=== PATIENT | female | born 1955 | race Caucasian/White ===

== ENCOUNTER 2023-08-29 12:00 | Emergency (ER) | payer MEDICARE, OTHER, SELFPAY ==
[2023-08-29 12:07] VITALS: BP 141/98
--- NOTE | 2023-08-29 12:37 | ED.GENMED ---
History of Present Illness
General
Chief Complaint: Female Pot Filler/Gu symptoms
Time Seen by Provider: 08/29/23 12:25
Travel History
Have you had any contact with someone who has COVID-19?: No
Do you have any symptoms of coronavirus? Fever > 100 degrees, chills, cough, shortness of breath, sore throat, loss of taste or smell, muscle aches, or headache?: No
History of Present Illness
History of Present Illness:
68-year-old female presents to the emergency department for evaluation of gradually worsening lower abdominal pain ongoing for the past 3 weeks. She reports that she saw her primary physician last week where she was told there was blood in the
urine but is uncertain if she was supposed to obtain any other lab work, did get up ordered for an outpatient ultrasound that she has not yet been able to schedule. Pain increased over the past 2 days prompting ER evaluation. Denies any vaginal
bleeding, chest pain, nausea, vomiting, night sweats, or weight changes
Past History
Past History
ED Past Medical History: None
ED Past Surgical History: None
Social History
Tobacco: Non-smoker
Review of Systems
Review of Systems
Allergies reviewed?: Yes
All Other Systems: ROS reviewed and negative except as documented in HPI and ROS
Phy Exam
Physical Exam
Physical Exam:
GEN: Well appearing, NAD, WDWN
Eyes: PERRLA, EOMs intact, no scleral icterus
HENT: NCAT, oral mucosa moist
Lungs: CTAB, no wheezes, rales, rhonchi, normal chest wall excursion
Cardiac: RRR, no M/R/G, no peripheral edema. Radial pulses 2+ bilat
Abdomen: Soft, moderate tenderness to the suprapubic space, no rigidity or peritoneal signs
Neuro: AO x 3
MSK: No gross deformity or ecchymosis.
Skin: No rashes, petechiae. Normal color, no pallor or jaundice.
Psych: Calm, cooperative, proper hygiene
Course
Orders/Labs/Results
Orders:
Orders
08/29/23 12:36
0.9% Sodium Chloride 1000 ml [Nss] 1,000 ml IV BOLUS
HYDROmorphone [Dilaudid] 0.25 mg IV NOW STA
08/29/23 12:51
Complete Blood Count/With Diff Urgent
Comprehensive Metabolic Panel Urgent
Lactic Acid Q4H
Comment: CANCEL 2nd LACTIC ACID IF 1st LACTIC ACID IS LESS THAN 2
Prothrombin Time Urgent
Urinalysis Reflex To Culture Urgent
Date Specimen was Collected: 08/29/23
Time Specimen was Collected: 12:48
Urine Microscopic Reflex Cult Urgent
Blood Culture Q30M
[facility] Source: Blood/Venous
Specimen Description:
08/29/23 12:54
Blood Culture Q30M
[facility] Source: Blood/Venous
Specimen Description:
08/29/23 13:35
CT Abd/Pel (IV only)-DH only Urgent
Comment:
Reason For Exam: suprapubic pain, hematuria
Abnormal Lab Results
08/29/23
12:51
RBC 3.77 L 10^6/uL
(4.20-5.40)
Hgb 11.2 L g/dL
(12.0-16.0)
Hct 33.5 L %
(37.0-47.0)
Absolute Monos (auto) 0.7 H 10^3/uL
(0.1-0.6)
Ur Occult Blood Reflex 3+ A
(Negative)
Urine RBC 7-10 A /HPF
(0-2)
08/29/23 12:51
08/29/23 12:51
Vital Signs
Initial and Last Documented VS:
Initial Vital Signs
Temp Pulse Resp BP Pulse Ox
98.9 F 118 18 141/98 97
08/29/23 12:07 08/29/23 12:07 08/29/23 12:07 08/29/23 12:07 08/29/23 12:07
Last Documented Vital Signs
Temp Pulse Resp BP Pulse Ox
98.9 F 77 18 115/73 99
08/29/23 12:07 08/29/23 16:30 08/29/23 16:30 08/29/23 16:30 08/29/23 16:30
MDM/Problems Addressed
MDM/Problems Addressed:
Unfortunately imaging reveals a heterogenous mass in the pelvis that is highly concerning for gynecologic malignancy. Blood in the urine is likely due to involvement of the adjacent right ureter. Patient is clinically stable and has normal labs,
no indication for admission. I did discuss the case with outpatient oncology who will help to facilitate follow-up with [facility] for further management
*Critical Care Note
Total Time (30-74mins, 75-104mins- exclusive of procedures): Not Applicable
ED Attending Note
-
Portions of this chart may have been created with voice recognition software.� Occasional wrong word or��sound alike� substitutions may have occurred due to the inherent limitations of voice recognition software.
Discharge Plan
Departure
Patient Disposition: Home (Routine Discharge)
Date of Disposition: 08/29/23
Time of Disposition: 16:03
Patient with high blood pressure during this ER visit?: No
Discharge Problem:
Pelvic mass
Prescriptions:
No Action
hydrocodone-acetaminophen [Santa] 1 EACH tablet
1 ea PO Q4HPRN PRN (Reason: severe pain) Qty: 10 0RF
Referrals:
Ronnie Solorzano DO [Active] -
Alon Serrato MD [Active] -
Activity Restrictions/Additional Instructions:
Your CT scan shows a large mass in the pelvis that is highly concerning for cancer. You will need to be followed up with both gynecology as well as hematology, both of these follow-up providers are listed in your paperwork and I did communicate the
urgent nature of your follow-up with both of the on-call specialists. If your pain becomes unbearable or you begin to vomit do not hesitate to return to the emergency department
I have prescribed you pain medications to use, please use these only as needed for severe pain. You may take Tylenol/acetaminophen as well
Interventions
Interventions:
*Risk Screen - Suicide Last Done: 08/29/23 12:48
*General Assessment Last Done: 08/29/23 12:48
*Neglect/Abuse Screening Last Done: 08/29/23 12:48
ED- Fall Risk Assessment Last Done: 08/29/23 16:30
*ED COVID-19 Vaccine History Last Done: 08/29/23 12:48
*Nursing Disposition Last Done: 08/29/23 16:30
HH-Ffbymz-Yquruomxzv Assessment Last Done: 08/29/23 12:48
ED-Female Genitourinary Assessment Last Done: 08/29/23 12:48
Discharge Date and Time
Discharge Date/Time: 08/29/23 16:49
[2023-08-29 12:50] VITALS: BP 135/78
[2023-08-29] MEDS: DILAUDID 0.25 MG IV (12:52)
[2023-08-29] MEDS: NSS 1000 IV (12:53)
[2023-08-29 12:54] VITALS: BMI 33.3
[2023-08-29 13:00] VITALS: BP 127/73
[2023-08-29 13:02] LABS: % Basophils 0.6 % (0-2); % Eosinophils 0.8 % (0-6); % Immature Granulocytes 0.5 % (0-0.5); % Lymphocytes 21.5 % (20.5-51.1); % Monocytes 8.1 % (1.7-9.3); % Neutrophils 68.5 % (42.2-75.2); Absolute Basophils 0.1 10^3/uL (0-0.2); Absolute Eosinophils 0.1 10^3/uL (0-0.7); Absolute Lymphocytes 1.9 10^3/uL (1.2-3.4); Absolute Monocytes 0.7 10^3/uL (0.1-0.6); Absolute Neutrophils 5.9 10^3/uL (1.4-6.5); Hematocrit 33.5 % (37.0-47.0); Hemoglobin 11.2 g/dL (12.0-16.0); Mean Corp Hgb Conc. 33.4 g/dL (33.0-37.0); Mean Corpuscular Hgb 29.7 pg (27.0-31.0); Mean Corpuscular Volume 88.9 fL (81.0-99.0); Mean Platelet Volume 9.4 fL (7.4-10.4); Nucleated Red Blood Cells % 0 %; Platelet Count 323 10^3/uL (130-400); Red Blood Cell Count 3.77 10^6/uL (4.20-5.40); Red Cell Dist. Width 13.2 % (11.5-14.5); White Blood Cell Count 8.6 10^3/uL (4.8-10.8)
[2023-08-29 13:16] LABS: INR 1.08; Lactic Acid 0.7 mmol/L (0.7-2.0); PT 14.1 Sec (11.4-14.6)
[2023-08-29 13:23] LABS: Urine Albumin Negative (Neg - Trace); Urine Bilirubin Negative (Negative); Urine Character Clear (Clear); Urine Color Yellow; Urine Glucose Negative (Negative); Urine Ketone Negative (Negative); Urine Leukocyte Negative (Negative); Urine Nitrite Negative (Negative); Urine Occult Blood 3+ (Negative); Urine Urobilinogen Negative (Neg - 1+)
[2023-08-29 13:48] LABS: ALT (SGPT) 27 U/L (0-35); AST (SGOT) 31 U/L (14-36); Alkaline Phosphatase 119 U/L (38-126); Blood Urea Nitrogen 16 mg/dl (7-17); Carbon Dioxide 27 mmol/L (22-30); Chloride 105 mmol/L (98-107); Estimated Creatinine Clearance 73 ml/min; Glucose 96 mg/dl (70-99); Sodium 137 mmol/L (135-145); Total Bilirubin 0.5 mg/dl (0.2-1.3); Total Protein 6.5 g/dl (6.3-8.2); eGFR > 60.00
[2023-08-29 13:51] LABS: Urine White Cell None Seen /HPF (0-5)
[2023-08-29 14:00] VITALS: BP 116/32
[2023-08-29 16:30] VITALS: BP 115/73
== END 2023-08-29 16:49 | disposition home or self-care (01) ==
LOC: EMR 12:00
PROVIDERS: Physician Assistant; EMERGENCY PHYSICIAN Student in an Organized Health Care Education/Training Program
DX: R19.00 Intra-abdominal and pelvic swelling, mass and lump, unspecified site (principal)
CPT/HCPCS: 99284; 96374; 96361; 74177; 80053; 81003; 81015; 83605; 85025; 85610; 87040; Q9967

== ENCOUNTER → 2023-09-06 12:20 | Outpatient (REF) | payer MEDICARE, OTHER, SELFPAY ==
[2023-09-06 12:42] VITALS: BP 156/85; BP_SYST 118
== END ==
LOC: RADI 12:20
PROVIDERS: ATTENDING PHYSICIAN Internal Medicine Hematology & Oncology
DX: J90 Pleural effusion, not elsewhere classified (principal); Z53.8 Procedure and treatment not carried out for other reasons; C56.9 Malignant neoplasm of unspecified ovary
CPT/HCPCS: 71260; 76604; Q9967

== ENCOUNTER → 2023-09-12 07:35 | Outpatient (REF) | payer MEDICARE, OTHER, SELFPAY ==
[2023-09-12 08:18] VITALS: BP 136/80; BP_SYST 99
[2023-09-12] MEDS: ANCEF 10 IV (08:33)
[2023-09-12 10:21] VITALS: BP 120/73
== END ==
LOC: RADI 07:35
PROVIDERS: ATTENDING PHYSICIAN Internal Medicine Hematology & Oncology
DX: C56.9 Malignant neoplasm of unspecified ovary (principal)
CPT/HCPCS: 36561; 76937; 77001; 99152; 99153; C1788

== ENCOUNTER → 2023-09-16 09:29 | Outpatient (REF) | payer MEDICARE, OTHER, SELFPAY ==
[2023-09-16 09:43] VITALS: BP 133/77; BP_SYST 111
[2023-09-16 11:49] VITALS: BP 114/70; BP_SYST 99
[2023-09-16 11:50] VITALS: BP 104/68
[2023-09-16 12:00] VITALS: BP 100/63; BP_SYST 98
[2023-09-16 12:14] VITALS: BP 91/65; BP_SYST 95
[2023-09-16 12:32] VITALS: BP 94/57
== END ==
LOC: RADI 09:29
PROVIDERS: ATTENDING PHYSICIAN Internal Medicine Hematology & Oncology; REFERRING PHYSICIAN Obstetrics & Gynecology Gynecologic Oncology
DX: C57.7 Malignant neoplasm of other specified female genital organs (principal)
CPT/HCPCS: 88305; 20206; 77012; 88333; 88341; 88342; 88360; 99152

== ENCOUNTER → 2023-09-17 11:31 | Outpatient (REF) | payer MEDICARE, OTHER, SELFPAY ==
[2023-09-17 12:02] LABS: % Basophils 0.5 % (0-2); % Eosinophils 1.2 % (0-6); % Immature Granulocytes 0.3 % (0-0.5); % Lymphocytes 23.5 % (20.5-51.1); % Monocytes 7.9 % (1.7-9.3); % Neutrophils 66.6 % (42.2-75.2); Absolute Basophils 0.1 10^3/uL (0-0.2); Absolute Eosinophils 0.1 10^3/uL (0-0.7); Absolute Lymphocytes 2.3 10^3/uL (1.2-3.4); Absolute Monocytes 0.8 10^3/uL (0.1-0.6); Absolute Neutrophils 6.5 10^3/uL (1.4-6.5); Hematocrit 34.3 % (37.0-47.0); Mean Corp Hgb Conc. 32.1 g/dL (33.0-37.0); Mean Corpuscular Hgb 28.6 pg (27.0-31.0); Mean Corpuscular Volume 89.1 fL (81.0-99.0); Mean Platelet Volume 9.7 fL (7.4-10.4); Nucleated Red Blood Cells % 0 %; Platelet Count 348 10^3/uL (130-400); Red Blood Cell Count 3.85 10^6/uL (4.20-5.40); Red Cell Dist. Width 13.1 % (11.5-14.5); White Blood Cell Count 9.7 10^3/uL (4.8-10.8)
[2023-09-17 12:30] LABS: ALT (SGPT) 34 U/L (0-35); AST (SGOT) 45 U/L (14-36); Albumin 4.2 g/dl (3.5-5.0); Alkaline Phosphatase 107 U/L (38-126); Blood Urea Nitrogen 17 mg/dl (7-17); Calcium 9.5 mg/dl (8.4-10.2); Carbon Dioxide 28 mmol/L (22-30); Chloride 104 mmol/L (98-107); Glucose 98 mg/dl (70-99); Potassium 3.9 mmol/L (3.5-5.1); Sodium 139 mmol/L (135-145); Total Bilirubin 0.5 mg/dl (0.2-1.3); Total Protein 6.9 g/dl (6.3-8.2); eGFR > 60.00
== END ==
LOC: REG 11:31
PROVIDERS: ATTENDING PHYSICIAN Internal Medicine Hematology & Oncology; FAMILY PHYSICIAN Internal Medicine
DX: C56.9 Malignant neoplasm of unspecified ovary (principal); R19.04 Left lower quadrant abdominal swelling, mass and lump; J91.0 Malignant pleural effusion; C78.7 Secondary malignant neoplasm of liver and intrahepatic bile duct
CPT/HCPCS: 36415; 80053; 85025

== ENCOUNTER → 2023-10-07 10:21 | Outpatient (REF) | payer MEDICARE, OTHER, SELFPAY ==
[2023-10-07 11:31] LABS: % Basophils 0.3 % (0-2); % Eosinophils 0.3 % (0-6); % Immature Granulocytes 0.3 % (0-0.5); % Lymphocytes 16.4 % (20.5-51.1); % Monocytes 6.5 % (1.7-9.3); % Neutrophils 76.2 % (42.2-75.2); Absolute Monocytes 0.8 10^3/uL (0.1-0.6); Hemoglobin 10.4 g/dL (12.0-16.0); Mean Corp Hgb Conc. 32.5 g/dL (33.0-37.0); Mean Corpuscular Volume 89.1 fL (81.0-99.0); Mean Platelet Volume 9.4 fL (7.4-10.4); Nucleated Red Blood Cells % 0 %; Platelet Count 273 10^3/uL (130-400); Red Blood Cell Count 3.59 10^6/uL (4.20-5.40); Red Cell Dist. Width 14.9 % (11.5-14.5); White Blood Cell Count 11.9 10^3/uL (4.8-10.8)
[2023-10-07 13:35] LABS: ALT (SGPT) 32 U/L (0-35); AST (SGOT) 30 U/L (14-36); Albumin 4.3 g/dl (3.5-5.0); Alkaline Phosphatase 120 U/L (38-126); Blood Urea Nitrogen 19 mg/dl (7-17); Calcium 8.9 mg/dl (8.4-10.2); Carbon Dioxide 24 mmol/L (22-30); Chloride 104 mmol/L (98-107); Glucose 90 mg/dl (70-99); Potassium 4.2 mmol/L (3.5-5.1); Sodium 137 mmol/L (135-145); Total Bilirubin 0.4 mg/dl (0.2-1.3); Total Protein 6.8 g/dl (6.3-8.2); eGFR > 60.00
== END ==
LOC: REG 10:21
PROVIDERS: ATTENDING PHYSICIAN Internal Medicine Hematology & Oncology; FAMILY PHYSICIAN Internal Medicine
DX: C56.9 Malignant neoplasm of unspecified ovary (principal); R19.04 Left lower quadrant abdominal swelling, mass and lump; J91.0 Malignant pleural effusion; C78.7 Secondary malignant neoplasm of liver and intrahepatic bile duct
CPT/HCPCS: 36415; 80053; 85025

== ENCOUNTER → 2023-10-28 11:22 | Outpatient (REF) | payer MEDICARE, OTHER, SELFPAY ==
[2023-10-28 11:56] LABS: % Basophils 0.6 % (0-2); % Eosinophils 0.4 % (0-6); % Immature Granulocytes 0.4 % (0-0.5); % Lymphocytes 24.4 % (20.5-51.1); % Monocytes 8.1 % (1.7-9.3); % Neutrophils 66.1 % (42.2-75.2); ALT (SGPT) 29 U/L (0-35); AST (SGOT) 28 U/L (14-36); Absolute Basophils 0.1 10^3/uL (0-0.2); Absolute Lymphocytes 2.2 10^3/uL (1.2-3.4); Absolute Monocytes 0.7 10^3/uL (0.1-0.6); Albumin 4.5 g/dl (3.5-5.0); Alkaline Phosphatase 127 U/L (38-126); Blood Urea Nitrogen 16 mg/dl (7-17); Calcium 9.9 mg/dl (8.4-10.2); Carbon Dioxide 25 mmol/L (22-30); Chloride 103 mmol/L (98-107); Glucose 96 mg/dl (70-99); Hematocrit 31.6 % (37.0-47.0); Hemoglobin 10.3 g/dL (12.0-16.0); Mean Corp Hgb Conc. 32.6 g/dL (33.0-37.0); Mean Corpuscular Hgb 30.5 pg (27.0-31.0); Mean Corpuscular Volume 93.5 fL (81.0-99.0); Mean Platelet Volume 9.7 fL (7.4-10.4); Nucleated Red Blood Cells % 0 %; Platelet Count 168 10^3/uL (130-400); Red Blood Cell Count 3.38 10^6/uL (4.20-5.40); Red Cell Dist. Width 18.6 % (11.5-14.5); Sodium 140 mmol/L (135-145); Total Bilirubin 0.4 mg/dl (0.2-1.3); Total Protein 6.8 g/dl (6.3-8.2); eGFR > 60.00
[2023-10-28 11:57] LABS: Potassium 4.1 mmol/L (3.5-5.1)
== END ==
LOC: OIDL 11:22
PROVIDERS: ATTENDING PHYSICIAN Internal Medicine Hematology & Oncology
DX: C56.9 Malignant neoplasm of unspecified ovary (principal); R19.04 Left lower quadrant abdominal swelling, mass and lump; J91.0 Malignant pleural effusion
CPT/HCPCS: 80053; 85025

== ENCOUNTER → 2023-11-11 13:02 | Outpatient (REF) | payer MEDICARE, OTHER, SELFPAY | LOC: RAD 13:02 | PROVIDERS: ATTENDING PHYSICIAN Obstetrics & Gynecology Gynecologic Oncology | DX: C56.9 Malignant neoplasm of unspecified ovary (principal); R19.04 Left lower quadrant abdominal swelling, mass and lump; J91.0 Malignant pleural effusion; C78.7 Secondary malignant neoplasm of liver and intrahepatic bile duct | CPT/HCPCS: 71260; 74177; Q9967 ==

== ENCOUNTER → 2023-11-20 14:09 | Outpatient (REF) | payer MEDICARE, OTHER, SELFPAY ==
[2023-11-20 15:08] LABS: ALT (SGPT) 29 U/L (0-35); AST (SGOT) 31 U/L (14-36); Albumin 4.3 g/dl (3.5-5.0); Alkaline Phosphatase 106 U/L (38-126); Blood Urea Nitrogen 18 mg/dl (7-17); Calcium 9.4 mg/dl (8.4-10.2); Carbon Dioxide 25 mmol/L (22-30); Chloride 105 mmol/L (98-107); Glucose 82 mg/dl (70-99); Potassium 4.1 mmol/L (3.5-5.1); Sodium 137 mmol/L (135-145); Total Bilirubin 0.4 mg/dl (0.2-1.3); Total Protein 6.5 g/dl (6.3-8.2); eGFR > 60.00
[2023-11-20 15:24] LABS: % Basophils 0.3 % (0-2); % Eosinophils 0.5 % (0-6); % Immature Granulocytes 0.3 % (0-0.5); % Monocytes 9.4 % (1.7-9.3); % Neutrophils 64.5 % (42.2-75.2); Absolute Eosinophils 0.1 10^3/uL (0-0.7); Absolute Lymphocytes 2.8 10^3/uL (1.2-3.4); Absolute Neutrophils 7.2 10^3/uL (1.4-6.5); Hematocrit 29.4 % (37.0-47.0); Hemoglobin 9.9 g/dL (12.0-16.0); Mean Corp Hgb Conc. 33.7 g/dL (33.0-37.0); Mean Corpuscular Hgb 32.5 pg (27.0-31.0); Mean Corpuscular Volume 96.4 fL (81.0-99.0); Mean Platelet Volume 9.7 fL (7.4-10.4); Nucleated Red Blood Cells % 0 %; Platelet Count 201 10^3/uL (130-400); Red Blood Cell Count 3.05 10^6/uL (4.20-5.40); Red Cell Dist. Width 21.2 % (11.5-14.5); White Blood Cell Count 11.1 10^3/uL (4.8-10.8)
[2023-11-21 18:36] LABS: CA 125 20.4 U/mL (0-35)
== END ==
LOC: REG 14:09
PROVIDERS: ATTENDING PHYSICIAN Obstetrics & Gynecology Gynecologic Oncology; FAMILY PHYSICIAN Internal Medicine
DX: C56.9 Malignant neoplasm of unspecified ovary (principal); R19.04 Left lower quadrant abdominal swelling, mass and lump; J91.0 Malignant pleural effusion; C78.7 Secondary malignant neoplasm of liver and intrahepatic bile duct
CPT/HCPCS: 36415; 80053; 85025; 86304

== ENCOUNTER 2023-11-26 06:43 | Inpatient (IN) | payer MEDICARE, OTHER, SELFPAY ==
[2023-11-22 12:40] VITALS: BMI 31.5
[2023-11-26] VITALS (18 sets, daily range): BP systolic 68–147; BP diastolic 38–90; BMI 31.5
[2023-11-26] MEDS: ENTEREG 12 MG PO (12:07)
[2023-11-26] MEDS: TYLENOL 1000 MG PO (12:07)
[2023-11-26] MEDS: NEURONTIN 300 MG PO (12:07)
[2023-11-26] MEDS: HEPARIN 5000 UNITS SC (12:08)
[2023-11-26 15:31] LABS: B.E. - POC -5.3 mmol/L; Glucose - POC 179 mg/dl (65-99); HCO3 - POC 19 mmol/L (21-29); Hematocrit - POC 29 % PCV (37-47); Hemodilution- POC Yes; Ionized Calcium - POC 1.07 mmol/L (1.12-1.27); Lactate - POC 0.72 mmol/L (0.36-0.75); O2 Saturation %Calculated-POC 99.5 5 (92-96); PCO2 - POC 34 mmHg (35-45); PO2 - POC 168 mmHg (80-100); Potassium - POC 3.2 mmol/L (3.6-5.0); Sodium - POC 141 mmol/L (135-145); pH - POC 7.36 (7.35-7.45)
--- NOTE | 2023-11-26 18:15 | W.IMMPOSTOP ---
Surgical Immed Post Op Note
-
Primary Surgeon: Jose Ruffin MD
Assisting Surgeon: Alon Serrato MD
Pre-op Diagnosis: ovarian cancer
Post-op Diagnosis: ovarian cancer
Procedure Performed: sigmoidectomy with stapled EEA anastomosis, flexible sigmoidoscopy; remainder of case performed by Dr. Serrato
Anesthesia Type: general
Specimen / Cultures: sigmoid, donuts
Estimated Blood Loss: per Rojelio's op note
Complications: none
Operative Findings: donuts intact, negative leak test, anastomosis intact on flexible sigmoidoscopy
[2023-11-26 18:55] LABS: Mean Corp Hgb Conc. 34.4 g/dL (33.0-37.0); Mean Corpuscular Hgb 33.1 pg (27.0-31.0); Mean Corpuscular Volume 96.4 fL (81.0-99.0); Mean Platelet Volume 9.4 fL (7.4-10.4); Platelet Count 283 10^3/uL (130-400); Red Blood Cell Count 3.32 10^6/uL (4.20-5.40); Red Cell Dist. Width 18.8 % (11.5-14.5); White Blood Cell Count 20.3 10^3/uL (4.8-10.8)
[2023-11-26] MEDS: NEO-SYNEPHRINE 250 IV (18:59)
--- NOTE | 2023-11-26 19:02 | OR.RPT ---
Operative Report
Operative Report
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
Postoperative diagnosis same optimally debulked
Surgeon Alon Serrato
Second Surgeon Jose Ruffin colorectal surgery for colorectal anastomosis
Online Advertising Manager BRYAN Montenegro
Anesthesia General endotracheal intubation, and tap block
Procedures: Exploratory laparotomy, radical tumor debulking including total abdominal hysterectomy, bilateral salpingo-oophorectomy, bilateral pelvic and para-aortic lymph node dissection, infracolic and gastrocolic omentectomy, resection of right
paracolic gutter. Low anterior resection sigmoid resection with low colorectal anastomosis, flexible sigmoidoscopy, intraoperative angiography with ICG dye
Complications none
Estimated blood loss 500 cc
IV fluids given 4200 cc
Blood products given 1 unit packed red blood cell
Procedures in detail: This patient is brought to the operating room for interval cytoreductive surgery after receiving 3 cycles of neoadjuvant chemotherapy. Her CT scan indicated significant improvement. Upon arrival to the operating room she was
placed in supine position. General anesthesia was administered, she was intubated without any difficulty. Appropriate IV lines and arterial line was established, tap block was performed by anesthesia. She was positioned in dorsal lithotomy
position using Tito stirrups and prepped on the abdomen perineum and vagina, Wilhelm catheter was inserted for bladder drainage. Timeout procedure was completed she received cefazolin and Flagyl for prophylaxis, and also received heparin
subcutaneous injection prophylactically. Midline vertical skin incision was used to gain entry into the peritoneal cavity and extended in the upper abdomen. Exploration of the upper abdomen reveals bilateral diaphragms 3 within normal limits liver
was relatively smooth there were some adhesions in the posterior aspect suggestive of old disease that was treated. Gallbladder stomach are unremarkable. Appendix is absent and there is scarring around the cecum. 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
primary left fallopian tube cancer that involved the sigmoid colon and there was extension of disease on pelvic peritoneum and posterior cul-de-sac and the tumor was adherent to the posterior aspect of the uterus. Small bowel was examined from
ligament of Treitz down to ileocecal valve and there was no involvement in the mesentery. Ascending transverse and descending colon was normal. Omentum was unremarkable but had evidence of treated disease. The Bookwalter retractor was placed and
attention was turned initially to the upper abdomen, omentectomy was performed by detaching the omentum to the transverse colon and then gaining entry into the lesser sac, a series of short gastric vessels around the greater curvature of the stomach
was sealed and divided all the way up to gastrosplenic space. The splenic flexure was mobilized. This allowed us to remove the omentum in the left upper quadrant. This was submitted to pathology. Good hemostasis was present. We turned our
attention to the pelvis, it was obvious that sigmoid resection is necessary to gain R0 cytoreduction. Bilateral pelvic peritoneum was opened and retroperitoneum was accessed. Both ureters were identified and we placed Vesseloops around the ureter
to identify them during the pelvic portion of the surgery. Both infundibulopelvic ligaments were identified and retroperitoneum and ligated. The ovaries were from the pelvic peritoneum as well as sigmoid colon and also posterior aspect
of the uterus and utero-ovarian ligaments were sealed and divided and both right and left tubes and ovaries were submitted to pathology. Next the bladder was densely adherent to the anterior aspect of the uterus. We mobilized this down below the
level of the cervix. Hysterectomy was performed by ligation of uterine vessels followed by cardinal ligaments followed by uterosacral ligaments. Right angle Zeppelin clamps were placed below the level of the cervix, uterus and cervix were
amputated and 0 Vicryl suture was used to close the vagina starting from center to both corners and back to the center. Good hemostasis was present. [id number] suture of 3-0 Vicryl was used to stop bleeding from bladder. Next sigmoid colon
was divided just above the pelvic brim using RAVINDER 80 stapler. We used the LigaSure device to ligate the posterior attachments along the sacral promontory and retrorectal space. We used the LigaSure also to ligate and remove the peritoneum on the
right and left side of the pelvis. The venous channel that was bleeding on the left pelvis was controlled with [id number] suture of 2-0 silk. It posterior cul-de-sac peritoneum was opened and the colon was isolated, adipose tissue was ligated
around the colon. Contour stapler was fired below the area of involvement of the tumor in the sigmoid colon and its mesentery was submitted to pathology. We further mobilized the splenic flexure of the colon to allow tension-free anastomosis. We
did not have to sacrifice any of the blood vessels in the mesentery of the sigmoid colon. Next bilateral lymphadenectomy was performed removing the lymphatic tissue along the external iliac artery and vein and also involving the obturator fossa
bilaterally. On the left side there was definite evidence of residual tumor involving the soft tissue around the lymph nodes and these were removed altogether. We extended lymph node dissection in the low periaortic space up to the level of IRVIN on
the left side in the precaval space on the right side. At this point we irrigated all 4 quadrants and there was good evidence of hemostasis.
3 mL of ICG dye was injected intravenously, SPY infrared lighting was utilized and that we visualized that there was excellent blood supply to the distal aspects of the ascending colon in preparation for anastomosis.
Dr. Jose Ruffin presented to the surgery at this point, he examined the large bowel and agreed that the mobilization has been adequate. The open the staple line of the descending colon and placed a 28 mm anvil for EEA stapler within it and a
pursestring suture was performed. He then performed an placement of a EEA stapler into the May's pouch and the trocar was brought out just above the staple line. The 2 ends were approximated and brought together and the stapler was fired using
all the usual precautions. Formal flexible sigmoidoscopy was performed, insufflation of the anastomotic line did not reveal any evidence of leakage in the pelvis that was filled with water. There was no evidence of bleeding from the anastomosis
intraluminally. Once this was completed we scrubbed out and scrubbed back in using a closing table.
At the completion of surgery there was no visible residual disease in the peritoneal cavity. All laps and instruments were removed, the fascia was closed with 0 looped PDS starting from both ends coming to the center and they were tied to each
other. Subcutaneous tissue was closed using a running 2-0 Monocryl suture. Aaliyah were used to reapproximate the skin edges. Counts of laps instruments and needle was correct x 2. I was present and scrubbed for entire procedure as described
above.
[2023-11-26 19:10] LABS: Blood Urea Nitrogen 11 mg/dl (7-17); Calcium 8.2 mg/dl (8.4-10.2); Carbon Dioxide 19 mmol/L (22-30); Chloride 108 mmol/L (98-107); Estimated Creatinine Clearance 81 ml/min; Glucose 229 mg/dl (70-99); Magnesium 1.7 mg/dl (1.6-2.3); Potassium 3.8 mmol/L (3.5-5.1); Sodium 134 mmol/L (135-145); eGFR > 60.00
[2023-11-26] MEDS: DILAUDID 0.5 MG IV ×4 (19:10→21:55)
--- NOTE | 2023-11-26 19:29 | HPS.HSE ---
Family Physician
-
Family Physician: Dylan Plascencia
Chief Complaint
-
Postop consult from [facility].
Consulted for medical management.
History of Present Illness
Patient came for elective surgery for ovarian cancer. She had hysterectomy with salpingo-oophorectomy, omental tumor debulking and sigmoidectomy with end-to-end anastomosis.
Perioperatively she needed to 1 unit of PRBC and had 4200 mL of fluids. She lost 500 mL of blood according to operative note.
We were initially consulted for medical management but in the PACU she was noted to be hypotensive despite above fluid resuscitation and a unit of blood. She is being started on vasopressors.
Patient is going to be now admitted to ICU and will be primary attending during the ICU stay per protocol.
Patient is groggy but responsive. Oriented to place and person. Her main symptom is abdominal pain. Denies shortness of breath or chest pain. Denies any nausea.
Also denies dizziness.
Medical History
Past Medical History
Past Medical History: Reports Cancer (Ovarian), GERD, Hypercholesterolemia and Psychiatric (Anxiety)
Past Surgical History: Reports Appendectomy
Social History
Tobacco: Non-smoker
Alcohol: None
Drug: None
Living: With Family
Family History
Family History: Not pertinent
Allergies / Home Medications
Allergies reflects when Allergies were last updated in [employer].
Home Medications with original date entered in [employer]
Allergy/Medication List:
Allergies
Allergy/AdvReac Type Severity Reaction Status Date / Time
No Known Allergies Allergy Verified 11/26/23 11:56
Home Medications
amlodipine 5 mg tablet 5 mg PO PRN PRN HTN 09/05/23
bupropion HCl 150 mg 24 hr tablet, extended release 150 mg PO DAILY 09/05/23
losartan 25 mg tablet 25 mg PO PRN PRN HTN 09/05/23
omeprazole 20 mg capsule,delayed release 20 mg PO DAILY 09/05/23
simvastatin 20 mg tablet 20 mg PO HS 09/05/23
citalopram 20 mg tablet 30 mg PO HS 09/06/23
Review of Systems
-
Unable to obtain full review of systems at this time due to: Other (Limited review of system as above due to patient discomfort from pain.)
A 12 point ROS was completed and negative except as noted: No
Respiratory: Denies Cough or Trouble Breathing
Cardiac: Denies Chest Pain
Abdomen/GI: Reports Abdominal Pain; Denies Nausea
Neurological: Denies Dizzy or Headache
Physical Exam
Vital Signs
Vital Signs
Temp Pulse Resp BP Pulse Ox
98.4 F 92 13 83/54 97
11/26/23 18:33 11/26/23 19:01 11/26/23 19:01 11/26/23 19:01 11/26/23 19:01
Physical Exam
General: Comfortable
HEENT: Moist mucous membranes
Respiratory: Clear (On anterior auscultation) and Non Labored Respirations; No Accessory Resp Muscle Use
Cardiac: S1/S2 and Regular Rhythm; No Murmur
GI: Soft, Non Distended and Other (Clean surgical Aquacel dressing noted); No Normal Bowel Sounds
Genito-urinary: Clear Urine and Wilhelm
Neuro: Awake and Oriented; No Alert (Groggy but responsive)
Psych: Calm
Laboratory Results
-
11/26/23 18:49
11/26/23 18:49
Data Reviewed
-
Lab Data: Labs Reviewed by me (Postop labs pending)
Impression/Plan
-
Postop hypotension-suspect volume related and blood loss related. Stat H&H requested. Patient started on vasopressors. Patient will be admitted to ICU. Will get a twelve-lead EKG. No known CAD. Preop EKG was normal.
Ovarian cancer s/p hysterectomy, oophorectomy, omental debulking, sigmoidectomy-continue with postop pain, DVT prophylaxis per surgery. Currently cleared for clear liquids by surgery.
Hypertension-hold antihypertensives with current hypotension
GERD-continue with PPI
Hyperlipidemia-hold statins
Full code.
Discussed with PACU nursing
[2023-11-26] MEDS: ALBUMIN 5% 250 IV (19:39)
--- NOTE | 2023-11-26 19:51 | OR.RPT ---
Operative Report
Operative Report
DATE OF OPERATION: 11/26/2023
SURGEON: Jose Ruffin MD
PREOPERATIVE DIAGNOSIS: Ovarian cancer
POSTOPERATIVE DIAGNOSIS: Ovarian cancer
OPERATION: Sigmoidectomy with EEA stapled anastomosis, flexible sigmoidoscopy; remainder of operation performed and dictated by Dr. Serrato
ASSISTANTS:
1. Alon Serrato MD
ANESTHESIA: General
ESTIMATED BLOOD LOSS: Per Dr. Serrato's op note
FINDINGS:
1. Involvement of the sigmoid with proximal transection point at the proximal sigmoid and distal transection point on the rectum at about 10 cm from the anal verge
2. Performed EEA stapled anastomosis; negative leak test, intact donuts, anastomosis intact and not bleeding on flexible sigmoidoscopy
SPECIMENS:
1. Sigmoid
2. Donuts
COMPLICATIONS: No immediate complications during my portion of the operation.
INDICATIONS: The patient is a 68-year-old female who has stage III ovarian cancer and has been treated with [address] Serrato planned to do a hysterectomy with debulking surgery. The patient was seen in consult by my partner,
Dr. Hermelindo Forbes, for possible involvement of the rectosigmoid colon. Dr. Forbes discussed the operation with the patient including the risks, benefits and alternatives. Dr. Serrato began the surgery. He discovered that there were lesions involving
the mid sigmoid colon. However, when the point of the surgery came to removing the colon, Dr. Forbes was in the middle of another surgery. Therefore, I was called in to perform the sigmoidectomy with colorectal anastomosis.
PROCEDURE IN DETAIL: Upon my arrival to the surgery, Dr. Serrato had already performed a midline exploratory laparotomy. He had dissected the lateral attachments of the sigmoid. He showed me the involvement of the mid sigmoid colon. I agreed that
this portion of the colon should be resected in order to minimize remaining disease. Dr. Serrato continued his portion of the surgery, including the hysterectomy and pelvic lymph node dissection and I left the room. Once Dr. Serrato's portion of the
surgery was concluded, I was called back into the room. Dr. Serrato had stapled proximally at the level of the mid sigmoid colon and mobilized the descending colon and splenic flexure. He had also stapled across the mid rectum at about 10 cm from
the anal verge. He communicated to me that he had ran the remainder of the bowel and there was no concerning lesions.
First, I evaluated the reach of the sigmoid/descending colon. It easily reached into the pelvis but with a little tension on the mesentery. I further mobilized the mesentery off the retroperitoneum. Again the reach was checked and easily reached
with out tension on the mesentery. I then excised the staple line on the proximal sigmoid with electrocautery. I then performed a running pursestring 2-0 Prolene stitch along the edge of the proximal transection point. He had used EEA sizers to
check reach and circumference, and the largest sizer passed easily. I placed the 28 mm anvil within the sigmoid colon and tied down the pursestring to secure the anvil in place. I freed up the intervening mesentery from the area of the anvil. I
then turned my attention to the rectal stump. Dr. Serrato had placed an EEA sizer. We discovered a small tear in the serosa in the midportion of the rectal staple line. This serosal tear would easily fit with in the EEA stapler. Therefore, I
threw three 2-0 Vicryl interrupted stitches to close the defect close to the staple line and proposed center of the EEA stapler. I then went below and passed up EEA sizers myself. The largest sizer passed easily. I then passed the EEA stapler
transanally and oriented the pin to come out at the spot of the serosal tear so that it would be included in the resected donuts. I then passed the pin through this spot. Dr. Serrato mated the anvil to the EEA pin, ensuring the appropriate
orientation of the mesentery. There was no tension. I then closed the EEA stapler for 1 minute and fired. I removed the EEA stapler and evaluated the donuts, which were both intact. These were passed off as specimen. I then passed a flexible
sigmoidoscope transanally up to the level of the anastomosis. Dr. Serrato occluded the proximal colon and I insufflated with the pelvis full of saline. There was no bubbling noted. On direct visualization, the anastomosis looked intact without
bleeding. I suctioned out the insufflation and removed the flexible sigmoidoscope. I elected to not create a diverting ileostomy as the anastomosis appeared healthy and the patient did not have a history of pelvic radiation.
Dr. Serrato took over the operation with the plan to close. The remainder of the surgery will be dictated by him. My portion of the procedure was complete.
Of note, Alon Serrato MD, assisted me during my portion, which was necessary for traction, countertraction, and exploratory purposes. I was present only for my portion of the operation, as dictated above.
DICTATED BY: Jose Ruffin MD
[2023-11-26] MEDS: NSS 1000 IV (20:18)
[2023-11-26] MEDS: TYLENOL PO (21:00)
[2023-11-26] MEDS: LOVENOX 40 MG SC (21:17)
[2023-11-26] MEDS: NEURONTIN 100 MG PO (21:18)
--- NOTE | 2023-11-26 22:02 | PTCARENOTE ---
brought bed to the PACU to brain picker patient. placed on our monitors. pt alert and orientated x3. drowsy. 2L NC weaned to 1L. SBP in the 140's on сергей weaned to off. NS on the monitor. right radial a-line zeroed and transduced. Wilhelm draining clear
yellow urine. aquacell on abdomen with small spots of shadowing. medicated with dilaudid for abdominal pain. tolerating clear liquids.
[2023-11-27] VITALS (17 sets, daily range): BP systolic 85–125; BP diastolic 58–78; BMI 30.5
[2023-11-27] MEDS: TYLENOL PO (00:24)
[2023-11-27] MEDS: DILAUDID 0.5 MG IV ×2 (01:30→06:18)
[2023-11-27] MEDS: NSS 1000 IV ×3 (01:31→18:10)
[2023-11-27] MEDS: ROXICODONE 5 MG PO ×4 (03:47→19:43)
[2023-11-27 04:46] LABS: Hematocrit 28.6 % (37.0-47.0); Hemoglobin 9.9 g/dL (12.0-16.0); Mean Corp Hgb Conc. 34.6 g/dL (33.0-37.0); Mean Corpuscular Hgb 33.3 pg (27.0-31.0); Mean Corpuscular Volume 96.3 fL (81.0-99.0); Mean Platelet Volume 9.2 fL (7.4-10.4); Platelet Count 231 10^3/uL (130-400); Red Blood Cell Count 2.97 10^6/uL (4.20-5.40); Red Cell Dist. Width 18.9 % (11.5-14.5); White Blood Cell Count 17.1 10^3/uL (4.8-10.8)
[2023-11-27] MEDS: DILAUDID 0.25 MG IV (04:57)
[2023-11-27] MEDS: TYLENOL 1000 MG PO ×4 (05:07→23:19)
[2023-11-27 05:11] LABS: ALT (SGPT) 22 U/L (0-35); AST (SGOT) 25 U/L (14-36); Albumin 3.1 g/dl (3.5-5.0); Alkaline Phosphatase 77 U/L (38-126); Blood Urea Nitrogen 9 mg/dl (7-17); Calcium 8.3 mg/dl (8.4-10.2); Carbon Dioxide 23 mmol/L (22-30); Chloride 108 mmol/L (98-107); Estimated Creatinine Clearance 81 ml/min; Glucose 172 mg/dl (70-99); Potassium 3.8 mmol/L (3.5-5.1); Sodium 135 mmol/L (135-145); Total Bilirubin 0.6 mg/dl (0.2-1.3); eGFR > 60.00
--- NOTE | 2023-11-27 05:59 | CON.INTV ---
Addendum entered and electronically signed by Jorge Garcia MD 11/27/23 11:09:
Pt tx to tele. We will sign off. Please call with questions
Original Note:
Consultation
Consultation Request
Date/Time Consultation Requested: 11/26
Date/Time Consultation Performed: 11/26
Reason for Consultation: Critical care
Medical History
-
History of Present Illness:
History obtained from the patient, reviewing inpatient and outpatient records. 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
imaging. It was treated with chemotherapy. Patient underwent hysterectomy with salpingo-oophorectomy, omental tumor debulking and sigmoidectomy with end-to-end anastomosis. She was transfused with 1 unit of blood preoperatively. She had 500 cc
blood loss postoperatively. She was hypotensive in the PACU requiring initiation of pressors, transferred to ICU for further management 11/26/2023
Presently she is without shortness of breath. She has some mild abdominal discomfort, denies nausea. Preadmission she was ambulatory, living independently without any falls, dizziness, blood in urine or stool
.
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 History of appendectomy
Past Medical History
Past Medical History: None (See above)
Past Surgical History: None ( see above)
Social History
Tobacco: Non-smoker
Alcohol: None
Drug: None
Personal: Single
Living: Alone
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
Environmental Exposures: Grew up in [facility], lived near [place]
Family History
Family History: Other (1 brother alive but with history of cancer. 1 son healthy)
Allergies / Home Medications
Allergies
Allergy/AdvReac Type Severity Reaction Status Date / Time
No Known Allergies Allergy Verified 11/26/23 11:56
Home Medications
�Medication �Instructions �Recorded �Confirmed �Last Taken �Type
amlodipine 5 mg tablet 5 mg PO PRN PRN HTN 09/05/23 11/26/23 09/16/23 History
bupropion HCl 150 mg 24 hr tablet, 150 mg PO DAILY 09/05/23 11/26/23 11/26/23 08:30 History
extended release
losartan 25 mg tablet 25 mg PO PRN PRN HTN 09/05/23 11/26/23 09/16/23 History
omeprazole 20 mg capsule,delayed 20 mg PO DAILY 09/05/23 11/26/23 11/26/23 08:30 History
release
simvastatin 20 mg tablet 20 mg PO HS 09/05/23 11/26/23 11/25/23 23:00 History
citalopram 20 mg tablet 30 mg PO HS 09/06/23 11/26/23 11/25/23 23:00 History
Review of Systems
-
All other systems: Negative unless noted
Vitals / Labs / Diagnostic Testing
Vital Signs
Temp Pulse Resp BP Pulse Ox
98.6 F 95 16 125/71 98
11/27/23 03:51 11/27/23 05:45 11/27/23 05:45 11/27/23 05:00 11/27/23 05:45
Lab Data
11/27/23 04:33
11/27/23 04:33
Diagnostic Testing:
Physical Exam
-
HEENT: Normocephalic, Anicteric, Other (Right anterior chest port) and Other (Upper extremity A-line)
Cardiovascular: S1/S2, Regular Rhythm, Murmur (n) and Rub (n)
Respiratory: Wheeze (n), Rales (n) and Rhonchi (n)
GI: Soft, Non Distended, Tender (No rebound or guarding) and Other (Left GRANT drain in place)
Neurology: Awake and Alert
Skin: Other (Comfortable, no skin rash)
General: Comfortable
Assessment
-
68-year-old female history of high-grade serous carcinoma ovarian cancer, status post chemotherapy, underwent exploratory laparotomy with SOFI/BSO omentectomy, aortic lymph node dissection, sigmoidectomy. Postoperatively had hypotension requiring
pressors. Patient did receive 1 unit of blood, had 500 cc blood loss. We are asked to help from critical care standpoint
S/p SOFI/BSO, omental debulking, sigmoidectomy with end-to-end anastomosis
11/26/2023
Postoperative hypotension requiring pressors
Postoperative anemia, required 1 unit of blood intraoperatively
High-grade serous ovarian carcinoma
Imaged October 2023
Status post chemotherapy
Resolution of right pleural effusion
Conditions present prior to admission
Hyperlipidemia
GERD
Family history of cancer (brother)
Environmental exposure
grew up near [facility]
Plan/recommendations
At this time, patient remains critical but stable. Required pressors postoperatively, now weaned off
Postoperative anemia noted, hemoglobin 9.9. This is consistent with preoperative hemoglobin. Patient received 1 unit of blood
500 cc blood loss noted intraoperatively
EKG with normal sinus rhythm preoperatively
Chest x-ray unremarkable
Moving forward
Continue to monitor hemoglobin. Transfuse per surgery
Pain seems to be controlled, no obvious splinting on exam
Hypotension improved, off pressors
Check EKG
Pain control, incentive spirometry
N.p.o., bowel regimen per surgery
Urine output adequate. Negative fluid status noted
Consider removing A-line and consider transfer out of ICU
Reviewed prior CT chest 11/11/2023. There is no pulmonary nodule, no pleural effusions
Large complex solid/cystic mass noted 9.4 cm overall decreased in size compared to prior imaging
Of note, prior imaging showed left hydronephrosis, stable on recent imaging
Reviewed with critical care nursing
TCCT 31 min
--- NOTE | 2023-11-27 06:10 | PTCARENOTE ---
pt c/o lower abdominal pain. medicated with dilaudid and oxy still having pain. order received for PRN Dilaudid. pt resting.
--- NOTE | 2023-11-27 06:31 | PTCARENOTE ---
weaned to room air sats in the high 90's thoughout the night. medicated again for abdominal pain.
--- NOTE | 2023-11-27 08:30 | PTCARENOTE ---
Assumed care of pt at 0715 following shift report. Pt resting quietly in bed w/ eyes closed- easily arousable to name. O2 at 1l/min via NC in place w/ Pox 98%. Pt denies any SOB. Using IS w/ encouragement to pull 500. C/o generalize abdominal pain,
rates 03/31. Abdomen soft, generalized tenderness w/ palpation, hypoactive bowel sounds. Midline Aquacel dressing intact w/ small amount of shadow drainage noted. Denies passing any flatus, denies nausea. Physical assessment as documented. Pt's son
here to visit and requesting pt be medicated w/ oxycodone for pt c/o pain- see MAR. Comfort care given. Call barba w/in pt reach. IVF of NS continues to infuse at 125ml/hr.
[2023-11-27] MEDS: PROTONIX 40 MG PO (08:48)
[2023-11-27] MEDS: WELLBUTRIN XL (24 hour extended release) 150 MG PO (08:48)
[2023-11-27] MEDS: NEURONTIN 100 MG PO ×3 (08:48→21:05)
[2023-11-27] MEDS: MOTRIN 600 MG PO (08:54)
--- NOTE | 2023-11-27 08:59 | W.PN.GYNONC ---
Today's Communication
-
see above
Impression / Plan
-
Patient required postoperative pressors upon arrival to ICU. This was stopped shortly after arrival. Overnight blood pressures have been stable. Urine output was good at 2100 cc. Wilhelm has been removed. She will continue on clear liquids. IV
fluids at 125 cc/h. Hemoglobin is 9.9 appropriate for preop of 9.9 and blood loss of 500 cc and 1 unit of packed red blood cell transfused intraoperatively. The patient is stable for transfer out of ICU to regular floor. Diet as per colorectal
surgery. My plan is to get her out of bed, give her a voiding trial. Will continue trend her labs tomorrow.
Subjective / Interval History
-
Patient Was seen and evaluated she has incisional pain. She reports on and off pain awake throughout the night. She remains anxious about operative procedures that were performed and concerned about the bowel resection..
Objective Data
-
Lab Results:
11/27/23 04:33
11/27/23 04:33
Physical Exam
Vital Signs / I&O
Vitals
Temp Pulse Resp BP Pulse Ox
98.7 F 101 17 121/78 96
11/27/23 07:22 11/27/23 06:30 11/27/23 06:30 11/27/23 06:00 11/27/23 06:30
I&O
11/25/23 11/26/23 11/27/23 11/28/23
06:59 06:59 06:59 06:59
Intake Total 1125 / 1125
Output Total 2099 / 2099
Balance -975 / -975
Physical Exam
General: No Apparent Distress
Cardiac: Regular Rhythm
GI: Soft, Non Tender, Non Distended and Other (Incision appears to be clean dry intact)
Neuro: Awake and Alert
--- NOTE | 2023-11-27 09:07 | W.PN.CRS1 ---
Today's Communication / Plan
-
clear liquids
OOB
Lovenox
pain control
Assessment/Plan
-
POD#1 sigmoidectomy with stapled EEA anastomosis, flexible sigmoidoscopy
1. Vitals normal. WBC 17.1 as expected post op, trend.
2. OOB as tolerated.
3. Sifuentes d/c'ed, await void.
4. OR pathology pending.
5. Okay to transfuse out of the ICU from our perspective.
6. On a clear liquid diet.
7. On Lovenox for DVT prophylaxis.
8. Pain control: Tylenol/Toradol standing, Dilaudid PRN.
Subjective Data
Procedure
11/26/2023- sigmoidectomy with stapled EEA anastomosis, flexible sigmoidoscopy
Subjective Data
Date of Service: November 27, 2023
Patient states she does not have flatus. She has no nausea or vomiting. She has some mild pain. The sifuentes is removed but she has not urinated yet. She drank some water this morning.
Objective Data
-
Vital Signs
Temp Pulse Resp BP Pulse Ox
98.7 F 101 17 121/78 96
11/27/23 07:22 11/27/23 06:30 11/27/23 06:30 11/27/23 06:00 11/27/23 06:30
Intake & Output
11/26/23 11/27/23 11/28/23
06:59 06:59 06:59
Intake Total 1124
Output Total 2099
Balance -975 / -975
Intake:
IV fluids (Total) 1124
Nss 1,000 ml @ 125 mls/hr IV . 1124
Q8H SLOAN Rx#:[id number]
Output:
Urine, Sifuentes 2099 2099
Lab Results
11/27/23 04:33
11/27/23 04:33
Physical Exam
-
General: No Acute Distress and AOx3
Abdomen: Soft, Non Distended and Tender (mild around incision sites)
Skin: Warm and Dry
Wound: Dressing in Place
[2023-11-27] MEDS: TORADOL 15 MG IV ×3 (10:30→21:04)
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
--- NOTE | 2023-11-27 11:21 | PTCARENOTE ---
Rt radial Alberto removed per order and pressure held at site until hemostasis achieved- gauze dressing applied. Pt on RA w/ Pox 94%. Jadiel SOB. Pt reports previously administered Toradol 'helped'. Son remains attentive at bedside. Report called to
'Jayne' on 2S. Pt transferred via bed to Rm 2108 at 1115 w/ personal belongings. No complaints received or changes noted from previous assessment findings other than as documented. Pt tolerated CL breakfast w/o nauses- poor appetite noted.
--- NOTE | 2023-11-27 11:55 | PTCARENOTE ---
Received patient from ICU via bed around 1121 in stable condition. Tele monitor placed. SR/ST. Abdominal dressing C/D/I. +BS, no flatus. Patient DTV. IS deep breathing and coughing encouraged. Call barba in reach.
--- NOTE | 2023-11-27 16:13 | W.PN.HOSP.TC ---
Today's Communication/Plan
-
Postoperative care.
Assessment / Plan
Assessment / Plan
Impression:
Status post SOFI/BSO, omental debulking, sigmoidectomy with end to end anastomosis 11/26/2023
Postoperative hypotension
Postoperative acute anemia
Conditions prior to admission:
High-grade serous ovarian carcinoma
Status post chemotherapy.
History of right pleural effusion, dyslipidemia
GERD.
Essential hypertension
Plan:
Postoperative hypotension likely multifactorial due to volume, acute anemia
Estimated blood loss 500 cc
Has been on phenylephrine for short time and currently weaned off and remains hemodynamically stable.
Continue holding losartan and amlodipine monitor blood pressure trend for recurrent hypotension.
Postoperative anemia.
Hemoglobin 9.9 at preoperative level.
Status post 1 unit of packed red blood cells transfused
Monitor hemoglobin closely
Postoperative care as per CLIMATOLOGY TEACHER/colorectal surgery.
Wilhelm catheter removed for voiding trial
Analgesia Toradol/oxycodone.
Attempt to wean off IV narcotics
Clear liquid diet
Essential hypertension baseline ECG with sinus rhythm with no evidence of ischemia
Hold amlodipine and losartan given hypotension
Reinstate if stable BP
GERD
Continue PPI
Anticipated Discharge: > 48 hours
Subjective/Interval History
-
Date of Service: November 27, 2023
Objective Data
-
Labs:
Laboratory Results
11/27/23
04:33
WBC 17.1 H
Hgb 9.9 L
Hct 28.6 L
Plt Count 231
Sodium 135
Potassium 3.8
Chloride 108 H
Carbon Dioxide 23
BUN 9
Creatinine 0.6
Glucose 172 H
Calcium 8.3 L
Total Bilirubin 0.6
AST 25
ALT 22
Alkaline Phosphatase 77
Vital Signs:
Vital Signs
Temp Pulse Resp BP Pulse Ox
99.2 F 106 18 85/58 95
11/27/23 16:03 11/27/23 16:03 11/27/23 16:03 11/27/23 16:03 11/27/23 16:03
I&O
11/26/23 11/27/23 11/28/23
06:59 06:59 06:59
Intake Total 1125 / 1250 981 / 981
Output Total 2099 375 / 375
Balance -975 / -850 606 / 606
Physical Exam
-
General: Well Developed and No Apparent Distress
HEENT: Normocephalic, Atraumatic and Moist Mucous Membranes
Respiratory: Clear to Auscultation
Cardiac: Regular Rhythm and S1/S2; Negative Murmur, Rub or Gallop
GI: Soft, Nontender, Nondistended and Normal Bowel Sounds; Negative Organomegaly
Rectal: Deferred by Provider
Musculoskeletal: No Clubbing, No Cyanosis and No Edema
Skin: Negative Rash
Neuro: Nonfocal/Grossly Intact
[2023-11-27] MEDS: LOVENOX 40 MG SC (17:27)
[2023-11-27] MEDS: CELEXA 30 MG PO (21:05)
[2023-11-28] VITALS (7 sets, daily range): BP systolic 94–132; BP diastolic 59–81; PULSE 107; O2SAT 94
[2023-11-28] MEDS: ROXICODONE 5 MG PO ×4 (01:57→21:35)
[2023-11-28] MEDS: NSS 1000 IV (02:38)
[2023-11-28] MEDS: TORADOL 15 MG IV (04:02)
[2023-11-28 04:25] LABS: % Basophils 0.2 % (0-2); % Eosinophils 0.2 % (0-6); % Immature Granulocytes 0.3 % (0-0.5); % Lymphocytes 14.4 % (20.5-51.1); % Monocytes 7.6 % (1.7-9.3); % Neutrophils 77.3 % (42.2-75.2); Absolute Lymphocytes 1.7 10^3/uL (1.2-3.4); Absolute Monocytes 0.9 10^3/uL (0.1-0.6); Absolute Neutrophils 9.2 10^3/uL (1.4-6.5); Hematocrit 24.4 % (37.0-47.0); Mean Corp Hgb Conc. 32.8 g/dL (33.0-37.0); Mean Corpuscular Hgb 32.5 pg (27.0-31.0); Mean Corpuscular Volume 99.2 fL (81.0-99.0); Mean Platelet Volume 9.3 fL (7.4-10.4); Nucleated Red Blood Cells % 0 %; Platelet Count 181 10^3/uL (130-400); Red Blood Cell Count 2.46 10^6/uL (4.20-5.40); Red Cell Dist. Width 19.2 % (11.5-14.5); White Blood Cell Count 11.8 10^3/uL (4.8-10.8)
[2023-11-28 04:59] LABS: Blood Urea Nitrogen 8 mg/dl (7-17); Calcium 8.1 mg/dl (8.4-10.2); Carbon Dioxide 24 mmol/L (22-30); Chloride 112 mmol/L (98-107); Estimated Creatinine Clearance 79 ml/min; Glucose 105 mg/dl (70-99); Potassium 3.5 mmol/L (3.5-5.1); Sodium 136 mmol/L (135-145); eGFR > 60.00
[2023-11-28] MEDS: TYLENOL 1000 MG PO ×3 (05:48→17:26)
--- NOTE | 2023-11-28 06:07 | W.PN.GYNONC ---
Today's Communication
-
DC IV
Ambulate, will ask for PT eval
repeat labs in am
Impression / Plan
-
Doing well,
Encourage out of bed, 2-3 times per day for ambulation
I am ok to advance diet but will defer to colorectal surgerry
DC IV fluids
her Hgb is 8, expected based on acute blood loss in OR. overall hemodynamically stable, transfuse if Hgb less than 7 or symptomatic
Subjective / Interval History
-
POD2 SOFI BSO, Oment, P/PA LND, LAR for interval debulking ovary ca
she was transferred out of ICU yesterday AM
voided ok, still has incisional pain
remains anxious about recovery aspects of surgery
denies chest pain, or difficulty breathing
Objective Data
-
Lab Results:
11/28/23 04:14
11/28/23 04:14
Physical Exam
Vital Signs / I&O
Vitals
Temp Pulse Resp BP Pulse Ox
98.3 F 94 18 108/61 94
11/28/23 03:00 11/28/23 03:00 11/28/23 03:00 11/28/23 03:00 11/28/23 03:00
I&O
11/25/23 11/26/23 11/27/23 11/28/23
06:59 06:59 06:59 06:59
Intake Total 1125 / 1250 3991 / 3991
Output Total 2100 / 2100 1825 / 1825
Balance -975 / -850 2166 / 2166
Physical Exam
General: No Apparent Distress
Respiratory: Clear and Non Labored Respirations
Cardiac: Regular Rhythm
GI: Soft, Non Tender, Non Distended and Normal Bowel Sounds
Neuro: Awake, Alert and Oriented
Data Reviewed
-
Diagnostic Radiology: Image personally visualized and interpreted and Discussed with Physician (colorectal surgery, hospitalist)
[2023-11-28] MEDS: PROTONIX 40 MG PO (07:55)
[2023-11-28] MEDS: WELLBUTRIN XL (24 hour extended release) 150 MG PO (07:55)
[2023-11-28] MEDS: NEURONTIN 100 MG PO ×3 (07:56→21:01)
--- NOTE | 2023-11-28 09:13 | W.PN.CRS1 ---
Today's Communication / Plan
-
full liquids
Assessment/Plan
-
POD#2 sigmoidectomy with stapled EEA anastomosis, flexible sigmoidoscopy
1. Vitals normal. WBC 11.8, trending down.
2. OOB as tolerated. PT ordered.
3. Voiding post sifuentes removal.
4. OR pathology pending.
5. Advance diet to fulls.
6. On Lovenox for DVT prophylaxis.
7. Pain control: Tylenol/Toradol standing, Dilaudid PRN.
Subjective Data
Procedure
11/26/2023- sigmoidectomy with stapled EEA anastomosis, flexible sigmoidoscopy
Subjective Data
Date of Service: November 28, 2023
Patient states her pain is controlled. She states her medications helped. She is hungry. She denies nausea or vomiting. She has no flatus yet.
Objective Data
-
Vital Signs
Temp Pulse Resp BP Pulse Ox
98.7 F 104 17 116/74 96
11/28/23 07:10 11/28/23 07:10 11/28/23 07:10 11/28/23 07:10 11/28/23 07:10
Intake & Output
11/27/23 11/28/23 11/29/23
06:59 06:59 06:59
Intake Total 1125 / 1250 3991 / 3991
Output Total 2099
Balance -975 / -850 2166 / 2166
Intake:
Oral fluids 1740 / 1740
IV fluids (Total) 1125 / 1250 2251 / 2251
Nss 1,000 ml @ 125 mls/hr IV . 1125 / 1250 376 / 376
Q8H SLOAN Rx#:[id number]
Output:
Urine, Sifuentes 2099
Urine, Voided 1825 / 1825
Lab Results
11/28/23 04:14
11/28/23 04:14
Physical Exam
-
General: No Acute Distress and AOx3
Abdomen: Soft, Non Distended and Non Tender
Skin: Warm and Dry
Incision: Clear, Dry, Intact
[2023-11-28] MEDS: ROXICODONE 2.5 MG PO (13:11)
--- NOTE | 2023-11-28 14:53 | CM ---
Addendum entered by Niraj Jarvis 11/28/23 15:07:
Preference for HH is DH. referral forwarded.
Original Note:
Therapy recommending HH PT. Will get preference and forward referral.
--- NOTE | 2023-11-28 16:03 | W.PN.HOSP.TC ---
Today's Communication/Plan
-
Monitor hemoglobin
Consider transfusion if symptomatic or dropping further below 8.
Wilhelm is out and voiding.
Full liquid diet
Physical therapy.
Assessment / Plan
Assessment / Plan
Impression:
Status post SOFI/BSO, omental debulking, sigmoidectomy with end to end anastomosis 11/26/2023
Postoperative hypotension
Postoperative acute anemia
Conditions prior to admission:
High-grade serous ovarian carcinoma
Status post chemotherapy.
History of right pleural effusion, dyslipidemia
GERD.
Essential hypertension
Plan:
Postoperative hypotension likely multifactorial due to volume, acute anemia
Estimated blood loss 500 cc
Has been on phenylephrine for short time and currently weaned off and remains hemodynamically stable.
Continue holding losartan and amlodipine monitor blood pressure trend for recurrent hypotension.
Postoperative anemia.
Hemoglobin down to 8 also likely function of dilution.
Status post 1 unit of packed red blood cells transfused
Monitor hemoglobin closely
Postoperative care as per MAINTENANCE APPRENTICE/colorectal surgery.
Wilhelm catheter removed for voiding trial
Analgesia Toradol/oxycodone.
Attempt to wean off IV narcotics
Advance to full liquid diet
Essential hypertension baseline ECG with sinus rhythm with no evidence of ischemia
Hold amlodipine and losartan given hypotension
Reinstate if stable BP
GERD
Continue PPI
Anticipated Discharge: > 48 hours
Subjective/Interval History
-
Date of Service: November 28, 2023
Objective Data
-
Labs:
Laboratory Results
11/28/23
04:14
WBC 11.8 H
Hgb 8.0 L
Hct 24.4 L
Plt Count 181 D
Sodium 136
Potassium 3.5
Chloride 112 H
Carbon Dioxide 24
BUN 8
Creatinine 0.6
Glucose 105 H
Calcium 8.1 L
Vital Signs:
Vital Signs
Temp Pulse Resp BP Pulse Ox
98.2 F 102 17 105/68 96
11/28/23 15:05 11/28/23 15:05 11/28/23 15:05 11/28/23 15:05 11/28/23 15:05
I&O
11/27/23 11/28/23 11/29/23
06:59 06:59 06:59
Intake Total 1125 / 1250 3991 / 3991 360 / 360
Output Total 2100 / 2100 1825 / 1825 250 / 250
Balance -975 / -850 2166 / 2166 110 / 110
Physical Exam
-
General: Well Developed and No Apparent Distress
HEENT: Normocephalic, Atraumatic and Moist Mucous Membranes
Respiratory: Clear to Auscultation
Cardiac: Regular Rhythm and S1/S2; Negative Murmur, Rub or Gallop
GI: Soft, Nontender, Nondistended and Normal Bowel Sounds; Negative Organomegaly
Rectal: Deferred by Provider
Musculoskeletal: No Clubbing, No Cyanosis and No Edema
Skin: Negative Rash
Neuro: Nonfocal/Grossly Intact
[2023-11-28] MEDS: LOVENOX 40 MG SC (17:26)
[2023-11-28] MEDS: CELEXA 30 MG PO (21:01)
[2023-11-29] MEDS: TYLENOL 1000 MG PO ×4 (00:03→17:01)
[2023-11-29] MEDS: ROXICODONE 5 MG PO ×3 (03:06→21:19)
[2023-11-29 03:09] VITALS: BP 129/83
[2023-11-29 04:46] LABS: % Basophils 0.4 % (0-2); % Eosinophils 1.7 % (0-6); % Immature Granulocytes 0.4 % (0-0.5); % Lymphocytes 20.8 % (20.5-51.1); % Neutrophils 68.7 % (42.2-75.2); Absolute Eosinophils 0.2 10^3/uL (0-0.7); Absolute Monocytes 0.8 10^3/uL (0.1-0.6); Absolute Neutrophils 6.7 10^3/uL (1.4-6.5); Hematocrit 24.5 % (37.0-47.0); Hemoglobin 8.2 g/dL (12.0-16.0); Mean Corp Hgb Conc. 33.5 g/dL (33.0-37.0); Mean Corpuscular Hgb 32.9 pg (27.0-31.0); Mean Corpuscular Volume 98.4 fL (81.0-99.0); Mean Platelet Volume 9.6 fL (7.4-10.4); Nucleated Red Blood Cells % 0 %; Platelet Count 219 10^3/uL (130-400); Red Blood Cell Count 2.49 10^6/uL (4.20-5.40); Red Cell Dist. Width 18.6 % (11.5-14.5); White Blood Cell Count 9.7 10^3/uL (4.8-10.8)
[2023-11-29 05:20] LABS: Blood Urea Nitrogen 7 mg/dl (7-17); Calcium 8.2 mg/dl (8.4-10.2); Carbon Dioxide 24 mmol/L (22-30); Chloride 109 mmol/L (98-107); Estimated Creatinine Clearance 79 ml/min; Glucose 103 mg/dl (70-99); Potassium 3.3 mmol/L (3.5-5.1); Sodium 135 mmol/L (135-145); eGFR > 60.00
[2023-11-29 07:40] VITALS: BP 134/75
[2023-11-29] MEDS: NEURONTIN 100 MG PO ×3 (07:45→21:19)
[2023-11-29] MEDS: WELLBUTRIN XL (24 hour extended release) 150 MG PO (07:46)
[2023-11-29] MEDS: PROTONIX 40 MG PO (07:46)
--- NOTE | 2023-11-29 09:21 | W.PN.CRS1 ---
Today's Communication / Plan
-
low residue
okay for d/c from our perspective if tolerates diet
Assessment/Plan
-
POD#3 sigmoidectomy with stapled EEA anastomosis, flexible sigmoidoscopy
1. Vitals normal. WBC 9.7, trending down.
2. OOB as tolerated. PT ordered.
3. Voiding post sifuentes removal.
4. OR pathology pending.
5. Advance diet to low residue.
6. On Lovenox for DVT prophylaxis.
7. Pain control: Tylenol/Toradol standing, Dilaudid PRN.
8. Okay for discharge from our perspective if tolerates a low residue diet. Follow up with Dr. Ruffin in 2 weeks. All questions answered.
Subjective Data
Procedure
11/26/2023- sigmoidectomy with stapled EEA anastomosis, flexible sigmoidoscopy
Subjective Data
Date of Service: November 29, 2023
Patient denies nausea or vomiting. She has flatus. She is very hungry. Her pain is controlled.
Objective Data
-
Vital Signs
Temp Pulse Resp BP Pulse Ox
98.8 F 104 16 134/75 93
11/29/23 07:40 11/29/23 07:40 11/29/23 07:40 11/29/23 07:40 11/29/23 07:40
Intake & Output
11/28/23 11/29/23 11/30/23
06:59 06:59 06:59
Intake Total 3991 / 3991 1495 / 1495
Output Total 1825 / 1825 550 / 550 300 / 300
Balance 2166 / 2166 945 / 945 -300 / -300
Intake:
Oral fluids 1740 / 1740 1495 / 1495
IV fluids (Total) 2251 / 2251
Nss 1,000 ml @ 125 mls/hr IV . 376 / 376
Q8H SLOAN Rx#:[id number]
Output:
Urine, Voided 1825 / 1825 550 / 550 300 / 300
Other:
Number of approximated SMALL 1
amounts of urine
Number of approximated LARGE 1
amounts of urine
Lab Results
11/29/23 04:16
11/29/23 04:16
Physical Exam
-
General: No Acute Distress and AOx3
Abdomen: Soft, Non Distended and Non Tender
Skin: Warm and Dry
Incision: Clear, Dry, Intact
[2023-11-29] MEDS: KCL 40 MEQ PO (10:32)
[2023-11-29 11:18] VITALS: BP 113/73
--- NOTE | 2023-11-29 11:22 | W.PN.GYNONC ---
Today's Communication
-
continue to increase ambulation and diet
Impression / Plan
-
Doing well,
Encourage out of bed, 2-3 times per day for ambulation
I am ok to advance diet but will defer to colorectal surgerry
DC IV fluids
her Hgb is 8, expected based on acute blood loss in OR. overall hemodynamically stable, transfuse if Hgb less than 7 or symptomatic
POD 3 -
doing well /HGB stable at 8.2
advance diet per colorectal low residual diet started if tolerated per them could be discharged
continue out of bed for ambulation
Subjective / Interval History
-
POD 3- SOFI BSO omentectomy P/PAD LAR for interval debulking ovarian CA
Doing better, able to tolerate liquids yesterday and was so far able to tolerate solids this am
still with incision pain but pain is improving no other complaints
has been able out of bed and moving around the room and floor
Objective Data
-
Lab Results:
11/29/23 04:16
11/29/23 04:16
Physical Exam
Vital Signs / I&O
Vitals
Temp Pulse Resp BP Pulse Ox
98.2 F 111 17 113/73 94
11/29/23 11:18 11/29/23 11:18 11/29/23 11:18 11/29/23 11:18 11/29/23 11:18
I&O
11/27/23 11/28/23 11/29/23 11/30/23
06:59 06:59 06:59 06:59
Intake Total 1125 / 1250 3991 / 3991 1495 / 1495
Output Total 2099 / 2099 1825 / 1825 550 / 550 420 / 420
Balance -975 / -850 2166 / 2166 945 / 945 -420 / -420
Physical Exam
Alert and oriented x3
heart-reg rate and rhythm
no SOB,lungs clear
abdomen-soft nondistended,incision healing well
extremities- no swelling or edema
Data Reviewed
-
Lab Data: Labs Reviewed and Discussed with Patient
--- NOTE | 2023-11-29 15:08 | CM ---
Therapy has recommended HH PT. HH liaison contacted PCP who will not agree to following for HH until patient makes appointment for evaluation. This CM explained to patient and daughter. They have agreed to scheduled appointment with PCP after
discharge and have his office set up HH services.
--- NOTE | 2023-11-29 15:12 | PN.CDI ---
Addendum entered and electronically signed by Justin Moffett MD 12/04/23 14:22:
Unable to comment
Original Note:
CDI
- -
CDI:
Physician Documentation Request
Admit Date: 11/26/23 06:43
Dear Doctor Zuhair,
Patient admitted with high-grade serous ovarian carcinoma.
5/8 PN, 'Postoperative hypotension likely multifactorial due to volume, acute anemia....Estimated blood loss 500 cc....Has been on phenylephrine for short time and currently weaned off and remains hemodynamically stable....Continue holding losartan
and amlodipine monitor blood pressure trend for recurrent hypotension.'
MAP's documented below:
Selected Entries
11/26/23
19:00 11/26/23
19:01
MAP (O-Vnpm-Mjnyaxy Monitor) 60 58
Please clarify which of the following is the most likely etiology of the above symptoms and treatment rendered:
Hypovolemic shock
Hemorrhagic shock
Other
Use of terms such as suspected, likely, concern for, or probable (associated with a specific diagnosis that is being evaluated, monitored, or treated as if it exists) are acceptable and can be coded in the inpatient setting, when documented at the
time of discharge.
Thank you,
Rizwana HERRERA,RN,CCDS
CDI Specialist
Available via [place] text
Please use your independent medical judgment in providing your response.
[2023-11-29 15:17] VITALS: BP 134/87
--- NOTE | 2023-11-29 16:11 | W.PN.HOSP.TC ---
Today's Communication/Plan
-
Diet has been advanced
Replete potassium.
Increase activity.
Discharge planning
Assessment / Plan
Assessment / Plan
Impression:
Status post SOFI/BSO, omental debulking, sigmoidectomy with end to end anastomosis 11/26/2023
Postoperative hypotension
Postoperative acute anemia
Hypokalemia
Conditions prior to admission:
High-grade serous ovarian carcinoma
Status post chemotherapy.
History of right pleural effusion, dyslipidemia
GERD.
Essential hypertension
Plan:
Postoperative hypotension likely multifactorial due to volume, acute anemia
Estimated blood loss 500 cc
Has been on phenylephrine for short time and currently weaned off and remains hemodynamically stable.
Continue holding losartan and amlodipine monitor blood pressure trend for recurrent hypotension.
Postoperative anemia.
Hemoglobin down to 8 also likely function of dilution.
Status post 1 unit of packed red blood cells transfused
Monitor hemoglobin closely
Postoperative care as per [employer]PENTER [employer]BLER/colorectal surgery.
Wilhelm catheter removed for voiding trial
Analgesia Toradol/oxycodone.
Attempt to wean off IV narcotics
Diet advanced to low residue on 11/28
Replete potassium
Essential hypertension baseline ECG with sinus rhythm with no evidence of ischemia
Hold amlodipine and losartan given hypotension
Reinstate if stable BP
GERD
Continue PPI
Anticipated Discharge: 24 - 48 hours
Subjective/Interval History
-
Date of Service: November 29, 2023
Objective Data
-
Labs:
Laboratory Results
11/29/23
04:16
WBC 9.7
Hgb 8.2 L
Hct 24.5 L
Plt Count 219 D
Sodium 135
Potassium 3.3 L
Chloride 109 H
Carbon Dioxide 24
BUN 7
Creatinine 0.5 L
Glucose 103 H
Calcium 8.2 L
Vital Signs:
Vital Signs
Temp Pulse Resp BP Pulse Ox
98 F 121 17 134/87 94
11/29/23 15:17 11/29/23 15:17 11/29/23 15:17 11/29/23 15:17 11/29/23 15:17
I&O
11/28/23 11/29/23 11/30/23
06:59 06:59 06:59
Intake Total 3991 / 3991 1495 / 1495
Output Total 1825 / 1825 550 / 550 420 / 420
Balance 2166 / 2166 945 / 945 -420 / -420
Physical Exam
-
General: Well Developed and No Apparent Distress
HEENT: Normocephalic, Atraumatic and Moist Mucous Membranes
Respiratory: Clear to Auscultation
Cardiac: Regular Rhythm and S1/S2; Negative Murmur, Rub or Gallop
GI: Soft, Nontender, Nondistended and Normal Bowel Sounds; Negative Organomegaly
Rectal: Deferred by Provider
Musculoskeletal: No Clubbing, No Cyanosis and No Edema
Skin: Negative Rash
Neuro: Nonfocal/Grossly Intact
[2023-11-29] MEDS: LOVENOX 40 MG SC (17:01)
[2023-11-29 19:46] VITALS: BP 116/79
[2023-11-29] MEDS: CELEXA 30 MG PO (21:19)
[2023-11-29 23:15] VITALS: BP 113/66
[2023-11-30] MEDS: TYLENOL 1000 MG PO ×4 (00:52→17:39)
[2023-11-30 03:00] VITALS: BP 111/68
[2023-11-30] MEDS: ROXICODONE 5 MG PO ×3 (06:22→21:49)
[2023-11-30 06:44] LABS: % Basophils 0.3 % (0-2); % Eosinophils 2.4 % (0-6); % Immature Granulocytes 0.3 % (0-0.5); % Lymphocytes 23.2 % (20.5-51.1); % Monocytes 6.7 % (1.7-9.3); % Neutrophils 67.1 % (42.2-75.2); Absolute Eosinophils 0.2 10^3/uL (0-0.7); Absolute Monocytes 0.6 10^3/uL (0.1-0.6); Absolute Neutrophils 5.9 10^3/uL (1.4-6.5); Hematocrit 25.2 % (37.0-47.0); Hemoglobin 8.5 g/dL (12.0-16.0); Mean Corp Hgb Conc. 33.7 g/dL (33.0-37.0); Mean Corpuscular Hgb 32.7 pg (27.0-31.0); Mean Corpuscular Volume 96.9 fL (81.0-99.0); Mean Platelet Volume 9.5 fL (7.4-10.4); Nucleated Red Blood Cells % 0 %; Platelet Count 243 10^3/uL (130-400); Red Cell Dist. Width 18.3 % (11.5-14.5); White Blood Cell Count 8.8 10^3/uL (4.8-10.8)
[2023-11-30 07:06] VITALS: BP 121/70
[2023-11-30 07:08] LABS: Blood Urea Nitrogen 8 mg/dl (7-17); Calcium 8.9 mg/dl (8.4-10.2); Carbon Dioxide 24 mmol/L (22-30); Chloride 110 mmol/L (98-107); Estimated Creatinine Clearance 79 ml/min; Glucose 119 mg/dl (70-99); Potassium 3.5 mmol/L (3.5-5.1); Sodium 139 mmol/L (135-145); eGFR > 60.00
[2023-11-30] MEDS: NEURONTIN 100 MG PO ×3 (08:24→21:49)
[2023-11-30] MEDS: PROTONIX 40 MG PO (08:24)
[2023-11-30] MEDS: WELLBUTRIN XL (24 hour extended release) 150 MG PO (08:27)
[2023-11-30] MEDS: MOTRIN 600 MG PO (08:33)
--- NOTE | 2023-11-30 08:52 | W.PN.GYNONC ---
Today's Communication
-
continue increasing ambulation
preparing for discharge hopefully tomorrow
Impression / Plan
-
Doing well,
Encourage out of bed, 2-3 times per day for ambulation
I am ok to advance diet but will defer to colorectal surgerry
DC IV fluids
her Hgb is 8, expected based on acute blood loss in OR. overall hemodynamically stable, transfuse if Hgb less than 7 or symptomatic
POD 3 -
doing well /HGB stable at 8.2
advance diet per colorectal low residual diet started if tolerated per them could be discharged
continue out of bed for ambulation
POD 4-
doing well
continue to advance diet and increase ambulation
planning discharge tomorrow
Subjective / Interval History
-
POD #4- s/p SOFI BSO omentectomy,P/PAL LAR for interval debulking of Ovarian CA
She is doing well pain improving, able to tolerate diet, ambulating better
Able to have BM but still just liquid
Objective Data
-
Lab Results:
11/30/23 06:32
11/30/23 06:32
Physical Exam
Vital Signs / I&O
Vitals
Temp Pulse Resp BP Pulse Ox
98.5 F 96 16 121/70 94
11/30/23 07:06 11/30/23 07:06 11/30/23 07:06 11/30/23 07:06 11/30/23 07:06
I&O
11/28/23 11/29/23 11/30/23 12/01/23
06:59 06:59 06:59 06:59
Intake Total 3991 / 3991 1495 / 1495 1745 / 1745
Output Total 1825 / 1825 550 / 550 620 / 620
Balance 2166 / 2166 945 / 945 1125 / 1125
Physical Exam
VSS- afebrile
alert and oriented x3
abdomen- incision healing well soft slight tenderness
extremities- no swelling or edema
Respiratory: Clear
Cardiac: Regular Rhythm
Data Reviewed
-
Lab Data: Labs Reviewed and Discussed with Patient
--- NOTE | 2023-11-30 11:05 | W.PN.CRS1 ---
Today's Communication / Plan
-
1. Vitals normal. WBC normal.
2. OOB as tolerated. PT ordered.
3. Voiding post sifuentes removal.
4. OR pathology pending.
5. On low residue diet and tolerating.
6. On Lovenox for DVT prophylaxis.
7. Pain control: Tylenol/Toradol standing, oxycodone prn.
8. Okay for discharge from our perspective if tolerates a low residue diet. Follow up with Dr. Ruffin in 2 weeks. All questions answered.
Assessment/Plan
-
POD#4 s/p sigmoidectomy with stapled EEA anastomosis, flexible sigmoidoscopy, and SOFI/BSO with omentectomy for interval debulking of ovarian cancer
progressing well
Hgb a little low, but stable
Subjective Data
Procedure
11/26/2023- sigmoidectomy with stapled EEA anastomosis, flexible sigmoidoscopy
Subjective Data
Date of Service: November 30, 2023
No complaints. Her pain is controlled and her appetite is good. She is moving her bowels.
Objective Data
-
Vital Signs
Temp Pulse Resp BP Pulse Ox
98.5 F 96 16 121/70 94
11/30/23 07:06 11/30/23 07:06 11/30/23 07:06 11/30/23 07:06 11/30/23 07:06
Intake & Output
11/29/23 11/30/23 12/01/23
06:59 06:59 06:59
Intake Total 1495 / 1495 1745 / 1745
Output Total 550 / 550 620 / 620
Balance 945 / 945 1125 / 1125
Intake:
Oral fluids 1495 / 1495 1745 / 1745
Output:
Urine, Voided 550 / 550 620 / 620
Other:
Number of approximated SMALL 1
amounts of urine
Number of approximated MODERATE 4
amounts of urine
Number of approximated LARGE 1
amounts of urine
Lab Results
11/30/23 06:32
11/30/23 06:32
Physical Exam
-
General: No Acute Distress
Abdomen: Soft, Non Distended and Non Tender
Incision: Clear, Dry, Intact
[2023-11-30 11:30] VITALS: BP 128/75
--- NOTE | 2023-11-30 13:01 | W.PN.HOSP.TC ---
Today's Communication/Plan
-
Diet has been advanced - tolerating LRD
Early Ambulation
DVT ppx
Holding Antihypertensives for now, can resume outpatient if needed
Discharge planning
Assessment / Plan
Assessment / Plan
Impression:
Status post SOFI/BSO, omental debulking, sigmoidectomy with end to end anastomosis 11/26/2023
Postoperative hypotension
Postoperative acute anemia
Hypokalemia
Conditions prior to admission:
High-grade serous ovarian carcinoma
Status post chemotherapy.
History of right pleural effusion, dyslipidemia
GERD.
Essential hypertension
Plan:
Postoperative hypotension likely multifactorial due to volume, acute anemia
Estimated blood loss 500 cc
Has been on phenylephrine for short time and currently weaned off and remains hemodynamically stable.
Continue holding losartan and amlodipine monitor blood pressure trend for recurrent hypotension.
Postoperative anemia.
Hemoglobin down to 8 also likely function of dilution. - Improving
Status post 1 unit of packed red blood cells transfused
Monitor hemoglobin closely
Postoperative care as per ROLLER MAKER/colorectal surgery.
Wilhelm catheter removed for voiding trial
Analgesia Toradol/oxycodone.
Attempt to wean off IV narcotics
Diet advanced to low residue on 11/28
Replete potassium
Essential hypertension baseline ECG with sinus rhythm with no evidence of ischemia
Hold amlodipine and losartan given hypotension
Reinstate if stable BP although noted to be PRN regardless
GERD
Continue PPI
Anticipated Discharge: Within 24 hours
Subjective/Interval History
-
Date of Service: November 30, 2023
No acute events overnight
Objective Data
-
Labs:
Laboratory Results
11/30/23
06:32
WBC 8.8
Hgb 8.5 L
Hct 25.2 L
Plt Count 243
Sodium 139
Potassium 3.5
Chloride 110 H
Carbon Dioxide 24
BUN 8
Creatinine 0.5 L
Glucose 119 H
Calcium 8.9
Vital Signs:
Vital Signs
Temp Pulse Resp BP Pulse Ox
98.3 F 95 16 128/75 94
11/30/23 11:30 11/30/23 11:30 11/30/23 11:30 11/30/23 11:30 11/30/23 11:30
I&O
11/29/23 11/30/23 12/01/23
06:59 06:59 06:59
Intake Total 1495 / 1495 1745 / 1745
Output Total 550 / 550 620 / 620
Balance 945 / 945 1125 / 1125
Review of Systems
-
History Source: Patient
All other systems: Not reviewed unless documented
Physical Exam
-
General: Well Developed and No Apparent Distress
HEENT: Normocephalic, Atraumatic and Moist Mucous Membranes
Respiratory: Clear to Auscultation
Cardiac: Regular Rhythm and S1/S2; Negative Murmur, Rub or Gallop
GI: Soft, Nontender, Nondistended and Normal Bowel Sounds; Negative Organomegaly
Rectal: Deferred by Provider
Musculoskeletal: No Clubbing, No Cyanosis and No Edema
Skin: Negative Rash
Neuro: Nonfocal/Grossly Intact
Data Reviewed
-
Diagnostic Radiology: Image personally visualized and interpreted and Report Reviewed by me
Labs: Labs Reviewed by me
[2023-11-30 15:16] VITALS: BP 116/76
[2023-11-30] MEDS: LOVENOX 40 MG SC (16:47)
[2023-11-30 19:36] VITALS: BP 124/69
[2023-11-30] MEDS: CELEXA 30 MG PO (21:49)
[2023-11-30 23:20] VITALS: BP 115/68
[2023-12-01 00:11] VITALS: BP 115/68
[2023-12-01] MEDS: TYLENOL 1000 MG PO ×2 (00:12→06:03)
[2023-12-01] MEDS: ROXICODONE 5 MG PO ×2 (02:40→11:19)
[2023-12-01 03:36] VITALS: BP 122/65
[2023-12-01 07:20] VITALS: BP 115/65
[2023-12-01] MEDS: WELLBUTRIN XL (24 hour extended release) 150 MG PO (08:18)
[2023-12-01] MEDS: PROTONIX 40 MG PO (08:18)
[2023-12-01] MEDS: NEURONTIN 100 MG PO (08:18)
--- NOTE | 2023-12-01 09:11 | W.PN.CRS1 ---
Today's Communication / Plan
-
I reviewed diet, meds, activity, wound care and follow-up.
All questions answered.
Final path pending.
Assessment/Plan
-
POD#5 s/p sigmoidectomy with stapled EEA anastomosis, flexible sigmoidoscopy, and SOFI/BSO with omentectomy for interval debulking of ovarian cancer
Ok for discharge from colorectal surgery standpoint
Subjective Data
Procedure
11/26/2023- sigmoidectomy with stapled EEA anastomosis, flexible sigmoidoscopy
Subjective Data
Date of Service: December 01, 2023
Currently sitting in the chair. Her pain is manageable. She is tolerating a low residue diet and her bowels are functioning.
Objective Data
-
Vital Signs
Temp Pulse Resp BP Pulse Ox
98.6 F 93 18 115/65 93
12/01/23 07:20 12/01/23 07:20 12/01/23 07:20 12/01/23 07:20 12/01/23 07:20
Intake & Output
11/30/23 12/01/23 12/02/23
06:59 06:59 06:59
Intake Total 1745 / 1745 1800 / 1800
Output Total 620 / 620 700 / 700
Balance 1125 / 1125 1100 / 1100
Intake:
Oral fluids 1745 / 1745 1800 / 1800
Output:
Urine, Voided 620 / 620 700 / 700
Other:
Number of approximated MODERATE 4 4
amounts of urine
Lab Results
11/30/23 06:32
11/30/23 06:32
Physical Exam
-
General: No Acute Distress
Abdomen: Soft, Non Distended and Non Tender
Extremities: No Calf Tenderness
Incision: Clear, Dry, Intact
--- NOTE | 2023-12-01 10:51 | W.DCSUMMARY ---
Discharge Summary
Discharge Data
Date of Admission: 11/26/23
Date of Discharge: 12/01/23
Total time spent discharging patient (in min): 45
-
Pending Results: Yes
Additional Pending Results:
final surgical path report patient was admitted
Hospital Course
Patient was admitted on 11/26/2023 for SOFI BSO omentectomy P/PAD LAR for interval debulking of ovarian CA. Patient had 500cc of blood loss and received 1 unit of blood interoperative. She did spend one night in ICU for hypotension post operatively
but discharge to med surg floor the following morning where the rest of hospital course has been uneventfully. Hemoglobin has remained stable and pain improving daily. She has been able to increase diet and BM have returned without difficulty.
Today is post op day 5 and is able to be discharged.
Discharge Plan
-
Patient Disposition: Home (Routine Discharge)
Discharge Diagnosis/Procedures: hysterectomy with salpingo-oophorectomy, omental tumor debulking and sigmoidectomy with end-to-end anastomosis.
Condition: Good
Diet: Regular
Activity: No strenuous activity
Additional Activity: No lifting over 10lbs (gallon of milk)
Driving Restrictions: No driving if using narcotics.
Bathing Restrictions: OK to Shower
Other Services: PT
Wound Care: Follow up with your surgeon in the office for removal of fifi 14-21 days after surgery
Referrals:
Dylan Plascencia MD [Family Provider] - (follow up in 1 to 2 weeks for blood pressure check)
Jose Ruffin MD [Active] - in two weeks
Alon Serrato MD [Active] - (follow up 12/09 for staple removal)
Additional Discharge Medication Instructions: start Eliquis 2.5 mg every 12 hours for thirty days on 12/02/2023
Prescriptions:
New
acetaminophen [Tylenol Extra Strength] 500 mg Tablet
1,000 mg PO Q6 7 Days Qty: 56 0RF
ibuprofen 600 mg Tablet
600 mg PO Q4HPRN PRN (Reason: mod pain) 7 Days Qty: 42 0RF
Continued
simvastatin 20 mg Tablet
20 mg PO HS
omeprazole 20 mg Capsule,Delayed Release(Dr/Ec)
20 mg PO DAILY
bupropion HCl 150 mg Tablet Extended Release 24 Hr
150 mg PO DAILY
citalopram 20 mg Tablet
30 mg PO HS
Discontinued
amlodipine 5 mg Tablet
5 mg PO PRN PRN (Reason: HTN)
losartan 25 mg Tablet
25 mg PO PRN PRN (Reason: HTN)
Discharge Orders:
Discharge Patient (As Directed); Ordered 12/01/23
Ordered By: Angélica Quinones
Discharge Date and Time
Print Language: MALIAN
[2023-12-01 11:00] VITALS: BP 115/70
--- NOTE | 2023-12-01 11:05 | CM ---
Reviewed the chart notes and spoke with the patient at the bedside. IMM signed and placed on chart. Per patient, she will contact her PCP and make an appointment to be seen and the PCPs office then can arrange for HH if needed. CM continues to be
available to patient/family and is monitoring medical plan for needs at discharge.
Plan: Discharge to home when medically stable.
--- NOTE | 2023-12-01 11:13 | W.PN.HOSP.TC ---
Today's Communication/Plan
-
tolerating LRD
Early Ambulation
DVT ppx
Holding Antihypertensives for now, can resume outpatient if needed
Discharge planning
Assessment / Plan
Assessment / Plan
Impression:
Status post SOFI/BSO, omental debulking, sigmoidectomy with end to end anastomosis 11/26/2023
Postoperative hypotension
Postoperative acute anemia
Hypokalemia
Conditions prior to admission:
High-grade serous ovarian carcinoma
Status post chemotherapy.
History of right pleural effusion, dyslipidemia
GERD.
Essential hypertension
Plan:
Postoperative hypotension likely multifactorial due to volume, acute anemia
Estimated blood loss 500 cc
Has been on phenylephrine for short time and currently weaned off and remains hemodynamically stable.
Continue holding losartan and amlodipine monitor blood pressure trend for recurrent hypotension.
Postoperative anemia.
Hemoglobin down to 8 also likely function of dilution. - Improving
Status post 1 unit of packed red blood cells transfused
Monitor hemoglobin closely
Postoperative care as per LINER ASSEMBLER/colorectal surgery.
Wilhelm catheter removed for voiding trial
Analgesia Toradol/oxycodone.
Attempt to wean off IV narcotics
Diet advanced to low residue on 11/28
Replete potassium
Essential hypertension baseline ECG with sinus rhythm with no evidence of ischemia
Hold amlodipine and losartan given hypotension
Reinstate if stable BP although noted to be PRN regardless
GERD
Continue PPI
Anticipated Discharge: Today
Subjective/Interval History
-
Date of Service: December 01, 2023
No acute events overnight
Objective Data
-
Vital Signs:
Vital Signs
Temp Pulse Resp BP Pulse Ox
98.6 F 93 18 115/65 93
12/01/23 07:20 12/01/23 07:20 12/01/23 07:20 12/01/23 07:20 12/01/23 07:20
I&O
11/30/23 12/01/23 12/02/23
06:59 06:59 06:59
Intake Total 1745 / 1745 1800 / 1800
Output Total 620 / 620 700 / 700
Balance 1125 / 1125 1100 / 1100
Review of Systems
-
History Source: Patient
All other systems: Not reviewed unless documented
Physical Exam
-
General: Well Developed and No Apparent Distress
HEENT: Normocephalic, Atraumatic and Moist Mucous Membranes
Respiratory: Clear to Auscultation
Cardiac: Regular Rhythm and S1/S2; Negative Murmur, Rub or Gallop
GI: Soft, Nontender, Nondistended and Normal Bowel Sounds; Negative Organomegaly
Rectal: Deferred by Provider
Musculoskeletal: No Clubbing, No Cyanosis and No Edema
Skin: Negative Rash
Neuro: Nonfocal/Grossly Intact
Data Reviewed
-
Diagnostic Radiology: Image personally visualized and interpreted and Report Reviewed by me
Labs: Labs Reviewed by me
[2023-12-01] MEDS: TYLENOL PO (13:21)
--- NOTE | 2023-12-01 13:45 | CM ---
Eliquis discount card provided to the patient for 30 day free trial.
== END 2023-12-01 13:52 | disposition home or self-care (01) | DRG 737 ==
LOC: 2 SOUTH 06:43
PROVIDERS: Internal Medicine; Surgery; ADMITTING PHYSICIAN Surgery; ATTENDING PHYSICIAN Obstetrics & Gynecology Gynecologic Oncology; FAMILY PHYSICIAN Internal Medicine
PROC: 30233N1 Transfusion of Nonautologous Red Blood Cells into Peripheral Vein, Percutaneous Approach (ICD-10-PCS; 2023-11-26)
PROC: 0UTC0ZZ Resection of Cervix, Open Approach (ICD-10-PCS; 2023-11-26)
PROC: 0UT90ZZ Resection of Uterus, Open Approach (ICD-10-PCS; 2023-11-26)
PROC: 0UT20ZZ Resection of Bilateral Ovaries, Open Approach (ICD-10-PCS; 2023-11-26)
PROC: 0DBU0ZZ Excision of Omentum, Open Approach (ICD-10-PCS; 2023-11-26)
PROC: 07BD0ZX Excision of Aortic Lymphatic, Open Approach, Diagnostic (ICD-10-PCS; 2023-11-26)
PROC: 0DTN0ZZ Resection of Sigmoid Colon, Open Approach (ICD-10-PCS; 2023-11-26)
PROC: 0UT70ZZ Resection of Bilateral Fallopian Tubes, Open Approach (ICD-10-PCS; 2023-11-26)
DX: C56.9 Malignant neoplasm of unspecified ovary (principal); D62 Acute posthemorrhagic anemia; K21.9 Gastro-esophageal reflux disease without esophagitis; I10 Essential (primary) hypertension; I95.81 Postprocedural hypotension; E87.6 Hypokalemia
CPT/HCPCS: 88304; 88305; 88307; 88309; 36415; 71045; 80048; 80053; 83735; 85025; 85027; 86850; 86900; 86901; 86920; 88112; 88341; 88342; 93005; 97162; C9250; P9016; P9045

== ENCOUNTER 2023-12-12 09:14 | Emergency (ER) | payer MEDICARE, OTHER, SELFPAY ==
[2023-12-12 09:21] VITALS: BP 128/75
--- NOTE | 2023-12-12 09:42 | ED.GENMED ---
History of Present Illness
<BEATA Cain - Last Filed: 12/17/23 18:30>
General
Chief Complaint: Cough
Source: patient
Exam Limitations: none
Time Seen by Provider: 12/12/23 09:28
Nursing documentation reviewed up to this point in time: agreed with
Travel History
Have you had any contact with someone who has COVID-19?: No
Do you have any symptoms of coronavirus? Fever > 100 degrees, chills, cough, shortness of breath, sore throat, loss of taste or smell, muscle aches, or headache?: No
History of Present Illness
History of Present Illness:
68-year-old female with ovarian cancer presents to the ER for evaluation of cough for the past several days but getting worse. Patient is status post total abdominal hysterectomy and BSO with debulking of ovarian cancer surgery (11/25). patient
reports last night she was short of breath with coughing and was unable to lay down because of the cough. She denies any fevers. She has had a runny nose.
She denies any recent fever or chills. She denies any lower extremity swelling. No prior history of congestive heart failure.
Past History
<BEATA Cain - Last Filed: 12/17/23 18:30>
Past History
ED Past Medical History: None
ED Past Surgical History: None
Social History
Tobacco: Non-smoker
Review of Systems
<BEATA Cain - Last Filed: 12/17/23 18:30>
Review of Systems
Allergies reviewed?: Yes
Other source history: family
All Other Systems: ROS reviewed and negative except as documented in HPI and ROS
Constitutional: Reports no symptoms; Denies fever, fatigue or chills
EENT: Reports no symptoms
Respiratory: Reports cough and trouble breathing
Cardiac: Reports no symptoms; Denies chest pain, diaphoresis, palpitations or syncope
ABD/GI: Reports no symptoms; Denies nausea or vomiting
: Reports no symptoms
Musculoskeletal: Reports no symptoms
Skin: Reports no symptoms
Neurological: Reports no symptoms
Hematologic/Lymphatic: Reports no symptoms
Psychiatric: Reports no symptoms
Phy Exam
<BEATA Cain - Last Filed: 12/17/23 18:30>
General Physical Exam
General Presentation: no apparent distress
General age: appears stated age
General Skin: warm and dry
General Habitus: normal
General Mental: alert
General Hydration: appears well hydrated
Cardiovascular Exam
Cardiovascular Exam: regular rate/rhythm, no murmur and normal peripheral pulses
Pulmonary Exam
Pulmonary Exam: lungs clear
Neurological Exam
Neurological Exam: alert and oriented x3
Musculoskeletal Exam
Musculoskeletal Exam: full ROM and other ( no l/e swelling )
Skin Exam
Skin Exam: normal color and warm/dry
Psychiatric Exam
Psychiatric Exam: normal mood/affect
Course
<BEATA Cain - Last Filed: 12/17/23 18:30>
Orders/Labs/Results
Orders:
Orders
12/12/23 09:44
Cardiac Monitoring- Treatment ONCE
IV Insert/Care/Rem.- Treatment PRN
0.9% Sodium Chloride 1000 ml [Nss] 1,000 ml IV BOLUS
12/12/23 09:45
Electrocardiogram (*1) Stat
Reason for Study: Other
Other Reason for Exam: pneumonia
EKG- Treatment ONCE
CR Chest - 2 Views Urgent
Comment:
Reason For Exam: sob/cough
12/12/23 09:59
COVID-19 Antigen Urgent
Source: Nasal Swab
Complete Blood Count/With Diff Urgent
Comprehensive Metabolic Panel Urgent
Pro-BNP [NT-proBNP] Urgent
Influenza A+B Rapid Molecular Urgent
MARY Source: Nasal Swab
Specimen Description:
12/12/23 12:41
Furosemide [Lasix] 40 mg IV NOW STA
12/12/23 13:55
CT Chest Pe Study Urgent
Comment:
Reason For Exam: sob
12/12/23 13:58
Cephalexin Monohydrate [Keflex] 500 mg PO NOW STA
Abnormal Lab Results
12/12/23
09:59
WBC 11.4 H 10^3/uL
(4.8-10.8)
RBC 2.73 L 10^6/uL
(4.20-5.40)
Hgb 8.7 L g/dL
(12.0-16.0)
Hct 26.3 L %
(37.0-47.0)
MCH 31.9 H pg
(27.0-31.0)
RDW 15.0 H %
(11.5-14.5)
Plt Count 422 H 10^3/uL
(130-400)
Abs Immat Gran (auto) 0.1 H 10^3/uL
(0-0.05)
Absolute Neuts (auto) 8.3 H 10^3/uL
(1.4-6.5)
Absolute Monos (auto) 0.9 H 10^3/uL
(0.1-0.6)
Lymphocytes % 14.3 L %
(20.5-51.1)
Glucose 111 H mg/dl
(70-99)
Alkaline Phosphatase 127 H U/L
(38-126)
Total Protein 5.9 L g/dl
(6.3-8.2)
Albumin 3.4 L g/dl
(3.5-5.0)
12/12/23 09:59
05/23/24 09:59
Vital Signs
Initial and Last Documented VS:
Initial Vital Signs
Temp Pulse Resp BP Pulse Ox
98.1 F 108 16 128/75 98
12/12/23 09:21 12/12/23 09:21 12/12/23 09:21 12/12/23 09:21 12/12/23 09:21
Last Documented Vital Signs
Temp Pulse Resp BP Pulse Ox
98.1 F 80 14 120/60 100
12/12/23 09:21 12/12/23 15:58 12/12/23 14:00 12/12/23 15:58 12/12/23 15:58
Stationary Fireman consulted with Physician
Stationary Fireman consulted with physician?: Yes
Name of Physician Consulted: Dr Pimentel
<Carlos Hill PA-C - Last Filed: 12/12/23 16:15>
Orders/Labs/Results
Orders:
Orders
12/12/23 09:44
Cardiac Monitoring- Treatment ONCE
IV Insert/Care/Rem.- Treatment PRN
0.9% Sodium Chloride 1000 ml [Nss] 1,000 ml IV BOLUS
12/12/23 09:45
Electrocardiogram (*1) Stat
Reason for Study: Other
Other Reason for Exam: pneumonia
EKG- Treatment ONCE
CR Chest - 2 Views Urgent
Comment:
Reason For Exam: sob/cough
12/12/23 09:59
COVID-19 Antigen Urgent
Source: Nasal Swab
Complete Blood Count/With Diff Urgent
Comprehensive Metabolic Panel Urgent
Pro-BNP [NT-proBNP] Urgent
Influenza A+B Rapid Molecular Urgent
MARY Source: Nasal Swab
Specimen Description:
12/12/23 12:41
Furosemide [Lasix] 40 mg IV NOW STA
12/12/23 13:55
CT Chest Pe Study Urgent
Comment:
Reason For Exam: sob
12/12/23 13:58
Cephalexin Monohydrate [Keflex] 500 mg PO NOW STA
Abnormal Lab Results
12/12/23
09:59
WBC 11.4 H 10^3/uL
(4.8-10.8)
RBC 2.73 L 10^6/uL
(4.20-5.40)
Hgb 8.7 L g/dL
(12.0-16.0)
Hct 26.3 L %
(37.0-47.0)
MCH 31.9 H pg
(27.0-31.0)
RDW 15.0 H %
(11.5-14.5)
Plt Count 422 H 10^3/uL
(130-400)
Abs Immat Gran (auto) 0.1 H 10^3/uL
(0-0.05)
Absolute Neuts (auto) 8.3 H 10^3/uL
(1.4-6.5)
Absolute Monos (auto) 0.9 H 10^3/uL
(0.1-0.6)
Lymphocytes % 14.3 L %
(20.5-51.1)
Glucose 111 H mg/dl
(70-99)
Alkaline Phosphatase 127 H U/L
(38-126)
Total Protein 5.9 L g/dl
(6.3-8.2)
Albumin 3.4 L g/dl
(3.5-5.0)
12/12/23 09:59
12/12/23 09:59
Vital Signs
Initial and Last Documented VS:
Initial Vital Signs
Temp Pulse Resp BP Pulse Ox
98.1 F 108 16 128/75 98
12/12/23 09:21 12/12/23 09:21 12/12/23 09:21 12/12/23 09:21 12/12/23 09:21
Last Documented Vital Signs
Temp Pulse Resp BP Pulse Ox
98.1 F 80 14 120/60 100
12/12/23 09:21 12/12/23 15:58 12/12/23 14:00 12/12/23 15:58 12/12/23 15:58
<BEATA Cain - Last Filed: 12/17/23 18:30>
MDM/Problems Addressed
MDM/Problems Addressed:
Patient is a 68-year-old female status post surgery for ovarian cancer November 25 presents for cough and shortness of breath over the past several days getting worse. She was not able to lay flat last night. No history of CHF. No recent fevers.
Patient arrives afebrile white count minimally elevated 11.4 hemoglobin stable at 8.7. BNP 263. Negative flu negative COVID.
Chest x-ray shows mild interstitial edema and bilateral very small pleural effusion.
Patient no acute distress nonhypoxic nontachypneic no lower extremity swelling. Ambulated nonhypoxic. Case reviewed with ED attending. Will give Lasix here. I spoke with pt 's surgeon DR Alon Serrato will check ct to rule out PE as pt does have
risk factors if negative will plan for discharge home over the next several days with Lasix 20 mg with close outpatient follow-up.
<BEATA Cain - Last Filed: 12/17/23 18:30>
*Radiology
Radiology exam reviewed: radiology read reviewed
*Pulse Oximetry
Patient hypoxic: no
<Carlos Hill PA-C - Last Filed: 12/12/23 16:15>
*Critical Care Note
Total Time (30-74mins, 75-104mins- exclusive of procedures): Not Applicable
<Carlos Hill PA-C - Last Filed: 12/12/23 16:15>
Update Note
Update Note:
Assumed care of this patient from Radha Falcon NP at shift change. Pending CT scan of the chest to rule out pulmonary embolism. Noted to have bilateral pleural effusions, will be discharged on diuretics.
ED Attending Note
<BEATA Cain - Last Filed: 12/17/23 18:30>
-
Portions of this chart may have been created with voice recognition software.� Occasional wrong word or��sound alike� substitutions may have occurred due to the inherent limitations of voice recognition software.
Discharge Plan
Departure
Patient Disposition: Home (Routine Discharge)
Date of Disposition: 12/12/23
Time of Disposition: 15:52
Patient with high blood pressure during this ER visit?: No
Condition: Fair
Covid-19: Not Applicable
Discharge Problem:
Pleural effusion
Instructions: Pleural effusion
Prescriptions:
New
furosemide [Lasix] 20 mg tablet
20 mg PO DAILY Qty: 3 0RF
No Action
simvastatin 20 mg Tablet
20 mg PO HS
omeprazole 20 mg Capsule,Delayed Release(Dr/Ec)
20 mg PO DAILY
bupropion HCl 150 mg Tablet Extended Release 24 Hr
150 mg PO DAILY
citalopram 20 mg Tablet
30 mg PO HS
acetaminophen [Tylenol Extra Strength] 500 mg Tablet
1,000 mg PO Q6 7 Days Qty: 56 0RF
ibuprofen 600 mg Tablet
600 mg PO Q4HPRN PRN (Reason: mod pain) 7 Days Qty: 42 0RF
Referrals:
Dylan Plascencia MD [Family Provider] -
Activity Restrictions/Additional Instructions:
A prescription for Lasix as discussed was sent to your pharmacy.
Take 1 dose daily as directed for the next 3 days. Follow-up closely with your family doctor next week for reevaluation return if any worsening of symptoms, increasing shortness of breath.
Interventions
Interventions:
*ED COVID-19 Vaccine History Last Done: 12/12/23 09:21
*Nursing Disposition Last Done: 12/12/23 16:06
ED- Pulmonary Assessment Last Done: 12/12/23 10:48
Discharge Date and Time
Discharge Date/Time: 12/12/23 16:06
Print Language: KAZAKH
[2023-12-12 10:10] VITALS: BP 116/68
[2023-12-12] MEDS: NSS 1000 IV (10:11)
[2023-12-12 10:20] LABS: % Basophils 0.9 % (0-2); % Eosinophils 3.6 % (0-6); % Immature Granulocytes 0.4 % (0-0.5); % Lymphocytes 14.3 % (20.5-51.1); % Monocytes 8.1 % (1.7-9.3); % Neutrophils 72.7 % (42.2-75.2); Absolute Basophils 0.1 10^3/uL (0-0.2); Absolute Eosinophils 0.4 10^3/uL (0-0.7); Absolute Immature Granulocytes 0.1 10^3/uL (0-0.05); Absolute Lymphocytes 1.6 10^3/uL (1.2-3.4); Absolute Monocytes 0.9 10^3/uL (0.1-0.6); Absolute Neutrophils 8.3 10^3/uL (1.4-6.5); Hematocrit 26.3 % (37.0-47.0); Hemoglobin 8.7 g/dL (12.0-16.0); Mean Corp Hgb Conc. 33.1 g/dL (33.0-37.0); Mean Corpuscular Hgb 31.9 pg (27.0-31.0); Mean Corpuscular Volume 96.3 fL (81.0-99.0); Mean Platelet Volume 9.2 fL (7.4-10.4); Nucleated Red Blood Cells % 0 %; Platelet Count 422 10^3/uL (130-400); Red Blood Cell Count 2.73 10^6/uL (4.20-5.40); White Blood Cell Count 11.4 10^3/uL (4.8-10.8)
[2023-12-12 10:34] LABS: ALT (SGPT) 33 U/L (0-35); AST (SGOT) 27 U/L (14-36); Albumin 3.4 g/dl (3.5-5.0); Alkaline Phosphatase 127 U/L (38-126); Blood Urea Nitrogen 15 mg/dl (7-17); Calcium 9.1 mg/dl (8.4-10.2); Carbon Dioxide 27 mmol/L (22-30); Chloride 106 mmol/L (98-107); Glucose 111 mg/dl (70-99); Sodium 139 mmol/L (135-145); Total Bilirubin 0.3 mg/dl (0.2-1.3); Total Protein 5.9 g/dl (6.3-8.2); eGFR > 60.00
[2023-12-12 10:38] LABS: COVID-19 Antigen Negative (Negative)
[2023-12-12 10:40] LABS: NT-proBNP 263 pg/ml
[2023-12-12] MEDS: LASIX 40 MG IV (13:49)
[2023-12-12 13:51] VITALS: BP 122/60
[2023-12-12 14:00] VITALS: BP 123/68
[2023-12-12] MEDS: KEFLEX 500 MG PO (14:05)
[2023-12-12 15:58] VITALS: BP 120/60
== END 2023-12-12 16:06 | disposition home or self-care (01) ==
LOC: EMR 09:14
PROVIDERS: Nurse Practitioner; EMERGENCY PHYSICIAN Emergency Medicine; FAMILY PHYSICIAN Internal Medicine
DX: J90 Pleural effusion, not elsewhere classified (principal); R05.9 Cough, unspecified; J81.1 Chronic pulmonary edema; C56.9 Malignant neoplasm of unspecified ovary; Z90.710 Acquired absence of both cervix and uterus; Z20.822 Contact with and (suspected) exposure to COVID-19
CPT/HCPCS: 99285; 96374; 96361; 71046; 71275; 80053; 83880; 85025; 87502; 87811; 93005; Q9967

== ENCOUNTER → 2023-12-17 10:01 | Outpatient (REF) | payer MEDICARE, OTHER, SELFPAY ==
[2023-12-17 10:15] VITALS: BP 132/77; BP_SYST 105
== END ==
LOC: RADI 10:01
PROVIDERS: ATTENDING PHYSICIAN Obstetrics & Gynecology Gynecologic Oncology; FAMILY PHYSICIAN Internal Medicine
DX: R18.8 Other ascites (principal); Z53.8 Procedure and treatment not carried out for other reasons
CPT/HCPCS: 76705

== ENCOUNTER → 2023-12-30 11:48 | Outpatient (REF) | payer MEDICARE, OTHER, SELFPAY ==
[2023-12-30 14:04] LABS: % Basophils 0.6 % (0-2); % Eosinophils 1.9 % (0-6); % Immature Granulocytes 0.2 % (0-0.5); % Lymphocytes 26.3 % (20.5-51.1); % Monocytes 7.4 % (1.7-9.3); % Neutrophils 63.6 % (42.2-75.2); Absolute Basophils 0.1 10^3/uL (0-0.2); Absolute Eosinophils 0.2 10^3/uL (0-0.7); Absolute Lymphocytes 2.1 10^3/uL (1.2-3.4); Absolute Monocytes 0.6 10^3/uL (0.1-0.6); Absolute Neutrophils 5.1 10^3/uL (1.4-6.5); Hematocrit 29.7 % (37.0-47.0); Hemoglobin 9.7 g/dL (12.0-16.0); Mean Corp Hgb Conc. 32.7 g/dL (33.0-37.0); Mean Corpuscular Hgb 30.4 pg (27.0-31.0); Mean Corpuscular Volume 93.1 fL (81.0-99.0); Mean Platelet Volume 9.9 fL (7.4-10.4); Nucleated Red Blood Cells % 0 %; Platelet Count 305 10^3/uL (130-400); Red Blood Cell Count 3.19 10^6/uL (4.20-5.40); Red Cell Dist. Width 14.8 % (11.5-14.5)
[2023-12-30 14:39] LABS: ALT (SGPT) 31 U/L (0-35); AST (SGOT) 28 U/L (14-36); Albumin 4.1 g/dl (3.5-5.0); Alkaline Phosphatase 123 U/L (38-126); Blood Urea Nitrogen 13 mg/dl (7-17); Calcium 9.4 mg/dl (8.4-10.2); Carbon Dioxide 26 mmol/L (22-30); Chloride 101 mmol/L (98-107); Glucose 88 mg/dl (70-99); Potassium 4.3 mmol/L (3.5-5.1); Sodium 138 mmol/L (135-145); Total Bilirubin 0.4 mg/dl (0.2-1.3); Total Protein 6.7 g/dl (6.3-8.2); eGFR > 60.00
== END ==
LOC: REG 11:48
PROVIDERS: ATTENDING PHYSICIAN Obstetrics & Gynecology Gynecologic Oncology; PRIMARYCARE PHYSICIAN Internal Medicine
DX: L03.90 Cellulitis, unspecified (principal); R19.04 Left lower quadrant abdominal swelling, mass and lump; J91.0 Malignant pleural effusion; C78.7 Secondary malignant neoplasm of liver and intrahepatic bile duct; C56.9 Malignant neoplasm of unspecified ovary
CPT/HCPCS: 36415; 74177; 80053; 85025; Q9967

== ENCOUNTER → 2024-01-13 11:06 | Outpatient (REF) | payer MEDICARE, OTHER, SELFPAY ==
[2024-01-13 12:26] LABS: % Basophils 0.9 % (0-2); % Immature Granulocytes 0.3 % (0-0.5); % Lymphocytes 27.6 % (20.5-51.1); % Monocytes 7.9 % (1.7-9.3); % Neutrophils 62.3 % (42.2-75.2); Absolute Basophils 0.1 10^3/uL (0-0.2); Absolute Eosinophils 0.1 10^3/uL (0-0.7); Absolute Lymphocytes 1.9 10^3/uL (1.2-3.4); Absolute Monocytes 0.5 10^3/uL (0.1-0.6); Absolute Neutrophils 4.3 10^3/uL (1.4-6.5); Hematocrit 33.2 % (37.0-47.0); Hemoglobin 10.5 g/dL (12.0-16.0); Mean Corp Hgb Conc. 31.6 g/dL (33.0-37.0); Mean Corpuscular Hgb 29.5 pg (27.0-31.0); Mean Corpuscular Volume 93.3 fL (81.0-99.0); Mean Platelet Volume 10.3 fL (7.4-10.4); Nucleated Red Blood Cells % 0 %; Platelet Count 272 10^3/uL (130-400); Red Blood Cell Count 3.56 10^6/uL (4.20-5.40); Red Cell Dist. Width 14.3 % (11.5-14.5); White Blood Cell Count 6.9 10^3/uL (4.8-10.8)
[2024-01-13 12:41] LABS: ALT (SGPT) 24 U/L (0-35); AST (SGOT) 27 U/L (14-36); Albumin 4.5 g/dl (3.5-5.0); Alkaline Phosphatase 139 U/L (38-126); Blood Urea Nitrogen 16 mg/dl (7-17); Calcium 9.9 mg/dl (8.4-10.2); Carbon Dioxide 28 mmol/L (22-30); Chloride 102 mmol/L (98-107); Glucose 91 mg/dl (70-99); Potassium 4.5 mmol/L (3.5-5.1); Sodium 139 mmol/L (135-145); Total Bilirubin 0.6 mg/dl (0.2-1.3); Total Protein 7.2 g/dl (6.3-8.2); eGFR > 60.00
== END ==
LOC: REG 11:06
PROVIDERS: ATTENDING PHYSICIAN Internal Medicine Hematology & Oncology; FAMILY PHYSICIAN Internal Medicine
DX: C56.9 Malignant neoplasm of unspecified ovary (principal); R19.04 Left lower quadrant abdominal swelling, mass and lump; J91.0 Malignant pleural effusion; C78.7 Secondary malignant neoplasm of liver and intrahepatic bile duct; L03.90 Cellulitis, unspecified; C57.01 Malignant neoplasm of right fallopian tube; R18.8 Other ascites
CPT/HCPCS: 36415; 80053; 85025

== ENCOUNTER → 2024-02-03 09:40 | Outpatient (REF) | payer MEDICARE, OTHER, SELFPAY ==
[2024-02-03 11:17] LABS: ALT (SGPT) 19 U/L (0-35); AST (SGOT) 21 U/L (14-36); Albumin 4.3 g/dl (3.5-5.0); Alkaline Phosphatase 134 U/L (38-126); Blood Urea Nitrogen 17 mg/dl (7-17); Calcium 9.4 mg/dl (8.4-10.2); Carbon Dioxide 29 mmol/L (22-30); Chloride 103 mmol/L (98-107); Glucose 94 mg/dl (70-99); Potassium 4.8 mmol/L (3.5-5.1); Sodium 138 mmol/L (135-145); Total Bilirubin 0.4 mg/dl (0.2-1.3); Total Protein 6.6 g/dl (6.3-8.2); eGFR > 60.00
[2024-02-03 13:00] LABS: % Basophils 0.5 % (0-2); % Eosinophils 0.3 % (0-6); % Immature Granulocytes 0.4 % (0-0.5); % Monocytes 8.1 % (1.7-9.3); % Neutrophils 71.7 % (42.2-75.2); Absolute Basophils 0.1 10^3/uL (0-0.2); Absolute Lymphocytes 1.8 10^3/uL (1.2-3.4); Absolute Monocytes 0.8 10^3/uL (0.1-0.6); Absolute Neutrophils 6.7 10^3/uL (1.4-6.5); Hematocrit 32.3 % (37.0-47.0); Hemoglobin 10.5 g/dL (12.0-16.0); Mean Corp Hgb Conc. 32.5 g/dL (33.0-37.0); Mean Corpuscular Hgb 29.7 pg (27.0-31.0); Mean Corpuscular Volume 91.2 fL (81.0-99.0); Mean Platelet Volume 9.8 fL (7.4-10.4); Nucleated Red Blood Cells % 0 %; Platelet Count 214 10^3/uL (130-400); Red Blood Cell Count 3.54 10^6/uL (4.20-5.40); Red Cell Dist. Width 16.3 % (11.5-14.5); White Blood Cell Count 9.4 10^3/uL (4.8-10.8)
== END ==
LOC: REG 09:40
PROVIDERS: ATTENDING PHYSICIAN Internal Medicine Hematology & Oncology; FAMILY PHYSICIAN Internal Medicine
DX: C56.9 Malignant neoplasm of unspecified ovary (principal); R19.04 Left lower quadrant abdominal swelling, mass and lump; J91.0 Malignant pleural effusion; C78.7 Secondary malignant neoplasm of liver and intrahepatic bile duct; L03.90 Cellulitis, unspecified; C57.01 Malignant neoplasm of right fallopian tube; R18.8 Other ascites
CPT/HCPCS: 36415; 80053; 85025

== ENCOUNTER → 2024-02-24 11:15 | Outpatient (REF) | payer MEDICARE, OTHER, SELFPAY ==
[2024-02-24 12:56] LABS: % Basophils 0.5 % (0-2); % Eosinophils 0.4 % (0-6); % Immature Granulocytes 0.4 % (0-0.5); % Lymphocytes 20.5 % (20.5-51.1); % Neutrophils 70.2 % (42.2-75.2); Absolute Basophils 0.1 10^3/uL (0-0.2); Absolute Lymphocytes 2.3 10^3/uL (1.2-3.4); Absolute Monocytes 0.9 10^3/uL (0.1-0.6); Absolute Neutrophils 7.7 10^3/uL (1.4-6.5); Hematocrit 30.2 % (37.0-47.0); Hemoglobin 9.9 g/dL (12.0-16.0); Mean Corp Hgb Conc. 32.8 g/dL (33.0-37.0); Mean Corpuscular Hgb 29.9 pg (27.0-31.0); Mean Corpuscular Volume 91.2 fL (81.0-99.0); Mean Platelet Volume 9.4 fL (7.4-10.4); Nucleated Red Blood Cells % 0 %; Platelet Count 176 10^3/uL (130-400); Red Blood Cell Count 3.31 10^6/uL (4.20-5.40); Red Cell Dist. Width 19.1 % (11.5-14.5)
[2024-02-24 13:55] LABS: ALT (SGPT) 21 U/L (0-35); AST (SGOT) 22 U/L (14-36); Albumin 4.2 g/dl (3.5-5.0); Alkaline Phosphatase 124 U/L (38-126); Blood Urea Nitrogen 18 mg/dl (7-17); Calcium 9.4 mg/dl (8.4-10.2); Carbon Dioxide 28 mmol/L (22-30); Chloride 104 mmol/L (98-107); Glucose 82 mg/dl (70-99); Potassium 4.3 mmol/L (3.5-5.1); Sodium 138 mmol/L (135-145); Total Bilirubin 0.3 mg/dl (0.2-1.3); Total Protein 6.4 g/dl (6.3-8.2); eGFR > 60.00
== END ==
LOC: REG 11:15
PROVIDERS: ATTENDING PHYSICIAN Internal Medicine Hematology & Oncology; FAMILY PHYSICIAN Internal Medicine
DX: C56.9 Malignant neoplasm of unspecified ovary (principal); R19.04 Left lower quadrant abdominal swelling, mass and lump; J91.0 Malignant pleural effusion; C78.7 Secondary malignant neoplasm of liver and intrahepatic bile duct; L03.90 Cellulitis, unspecified; C57.01 Malignant neoplasm of right fallopian tube; R18.8 Other ascites
CPT/HCPCS: 36415; 80053; 85025

== ENCOUNTER → 2024-03-09 11:04 | Outpatient (REF) | payer MEDICARE, OTHER, SELFPAY | LOC: RAD 11:04 | PROVIDERS: ATTENDING PHYSICIAN Obstetrics & Gynecology Gynecologic Oncology; FAMILY PHYSICIAN Internal Medicine | DX: C56.9 Malignant neoplasm of unspecified ovary (principal); R19.04 Left lower quadrant abdominal swelling, mass and lump | CPT/HCPCS: 71260; 74177; Q9967 ==

== ENCOUNTER → 2024-03-31 10:51 | Outpatient (REF) | payer MEDICARE, OTHER, SELFPAY ==
[2024-03-31 12:00] LABS: % Basophils 0.9 % (0-2); % Eosinophils 0.9 % (0-6); % Immature Granulocytes 0.4 % (0-0.5); % Lymphocytes 25.7 % (20.5-51.1); % Monocytes 9.3 % (1.7-9.3); % Neutrophils 62.8 % (42.2-75.2); Absolute Basophils 0.1 10^3/uL (0-0.2); Absolute Eosinophils 0.1 10^3/uL (0-0.7); Absolute Lymphocytes 1.4 10^3/uL (1.2-3.4); Absolute Monocytes 0.5 10^3/uL (0.1-0.6); Absolute Neutrophils 3.5 10^3/uL (1.4-6.5); Hematocrit 30.8 % (37.0-47.0); Hemoglobin 10.2 g/dL (12.0-16.0); Mean Corp Hgb Conc. 33.1 g/dL (33.0-37.0); Mean Corpuscular Hgb 31.5 pg (27.0-31.0); Mean Corpuscular Volume 95.1 fL (81.0-99.0); Mean Platelet Volume 9.4 fL (7.4-10.4); Nucleated Red Blood Cells % 0 %; Platelet Count 221 10^3/uL (130-400); Red Blood Cell Count 3.24 10^6/uL (4.20-5.40); Red Cell Dist. Width 18.5 % (11.5-14.5); White Blood Cell Count 5.6 10^3/uL (4.8-10.8)
[2024-03-31 12:39] LABS: ALT (SGPT) 21 U/L (0-35); AST (SGOT) 24 U/L (14-36); Albumin 4.4 g/dl (3.5-5.0); Alkaline Phosphatase 113 U/L (38-126); Blood Urea Nitrogen 20 mg/dl (7-17); Calcium 9.5 mg/dl (8.4-10.2); Carbon Dioxide 27 mmol/L (22-30); Chloride 102 mmol/L (98-107); Glucose 85 mg/dl (70-99); Potassium 4.7 mmol/L (3.5-5.1); Sodium 143 mmol/L (135-145); Total Bilirubin 0.5 mg/dl (0.2-1.3); Total Protein 6.8 g/dl (6.3-8.2); eGFR > 60.00
[2024-03-31 12:47] LABS: Urine Albumin Negative (Neg - Trace); Urine Bilirubin Negative (Negative); Urine Character Clear (Clear); Urine Color Yellow; Urine Glucose Negative (Negative); Urine Ketone Negative (Negative); Urine Leukocyte Negative (Negative); Urine Nitrite Negative (Negative); Urine Occult Blood Negative (Negative); Urine Urobilinogen Negative (Neg - 1+)
[2024-03-31 13:10] LABS: CA 125 73.6 U/mL (0-35)
[2024-03-31 13:36] LABS: Urine Protein < 5 mg/dl
== END ==
LOC: REG 10:51
PROVIDERS: ATTENDING PHYSICIAN Obstetrics & Gynecology Gynecologic Oncology; FAMILY PHYSICIAN Internal Medicine
DX: C56.9 Malignant neoplasm of unspecified ovary (principal); R19.04 Left lower quadrant abdominal swelling, mass and lump; J91.0 Malignant pleural effusion; C78.7 Secondary malignant neoplasm of liver and intrahepatic bile duct; L03.90 Cellulitis, unspecified; C57.01 Malignant neoplasm of right fallopian tube; R18.8 Other ascites; N39.0 Urinary tract infection, site not specified
CPT/HCPCS: 36415; 80053; 81003; 82570; 84156; 85025; 86304; 87086

== ENCOUNTER → 2024-04-24 11:42 | Outpatient (REF) | payer MEDICARE, OTHER, SELFPAY ==
[2024-04-24 12:43] LABS: % Basophils 0.8 % (0-2); % Eosinophils 1.3 % (0-6); % Immature Granulocytes 0.4 % (0-0.5); % Lymphocytes 30.7 % (20.5-51.1); % Monocytes 8.9 % (1.7-9.3); % Neutrophils 57.9 % (42.2-75.2); Absolute Basophils 0.1 10^3/uL (0-0.2); Absolute Eosinophils 0.1 10^3/uL (0-0.7); Absolute Lymphocytes 2.4 10^3/uL (1.2-3.4); Absolute Monocytes 0.7 10^3/uL (0.1-0.6); Absolute Neutrophils 4.5 10^3/uL (1.4-6.5); Hematocrit 32.7 % (37.0-47.0); Hemoglobin 10.3 g/dL (12.0-16.0); Mean Corp Hgb Conc. 31.5 g/dL (33.0-37.0); Mean Corpuscular Hgb 29.6 pg (27.0-31.0); Mean Platelet Volume 9.9 fL (7.4-10.4); Nucleated Red Blood Cells % 0 %; Platelet Count 238 10^3/uL (130-400); Red Blood Cell Count 3.48 10^6/uL (4.20-5.40); Red Cell Dist. Width 14.6 % (11.5-14.5); White Blood Cell Count 7.7 10^3/uL (4.8-10.8)
[2024-04-24 12:52] LABS: ALT (SGPT) 24 U/L (0-35); AST (SGOT) 25 U/L (14-36); Albumin 4.3 g/dl (3.5-5.0); Alkaline Phosphatase 104 U/L (38-126); Blood Urea Nitrogen 19 mg/dl (7-17); Calcium 9.6 mg/dl (8.4-10.2); Carbon Dioxide 26 mmol/L (22-30); Chloride 105 mmol/L (98-107); Glucose 93 mg/dl (70-99); Potassium 4.6 mmol/L (3.5-5.1); Sodium 144 mmol/L (135-145); Total Bilirubin 0.4 mg/dl (0.2-1.3); Total Protein 6.9 g/dl (6.3-8.2); eGFR > 60.00
[2024-04-24 13:28] LABS: Protein/creatinine Ratio 0.2; Urine Protein 16 mg/dl
== END ==
LOC: REG 11:42
PROVIDERS: ATTENDING PHYSICIAN Internal Medicine Hematology & Oncology; FAMILY PHYSICIAN Internal Medicine
DX: C56.9 Malignant neoplasm of unspecified ovary (principal); R19.04 Left lower quadrant abdominal swelling, mass and lump; J91.0 Malignant pleural effusion; C78.7 Secondary malignant neoplasm of liver and intrahepatic bile duct; L03.90 Cellulitis, unspecified; C57.01 Malignant neoplasm of right fallopian tube; R18.8 Other ascites
CPT/HCPCS: 36415; 80053; 82570; 84156; 85025

== ENCOUNTER → 2024-05-15 11:19 | Outpatient (REF) | payer MEDICARE, OTHER, SELFPAY ==
[2024-05-15 12:04] LABS: % Basophils 0.6 % (0-2); % Eosinophils 1.2 % (0-6); % Immature Granulocytes 0.1 % (0-0.5); % Lymphocytes 27.4 % (20.5-51.1); % Monocytes 8.4 % (1.7-9.3); % Neutrophils 62.3 % (42.2-75.2); Absolute Eosinophils 0.1 10^3/uL (0-0.7); Absolute Monocytes 0.6 10^3/uL (0.1-0.6); Absolute Neutrophils 4.5 10^3/uL (1.4-6.5); Hematocrit 33.8 % (37.0-47.0); Hemoglobin 11.1 g/dL (12.0-16.0); Mean Corp Hgb Conc. 32.8 g/dL (33.0-37.0); Mean Corpuscular Hgb 30.8 pg (27.0-31.0); Mean Corpuscular Volume 93.9 fL (81.0-99.0); Mean Platelet Volume 9.6 fL (7.4-10.4); Nucleated Red Blood Cells % 0 %; Platelet Count 191 10^3/uL (130-400); Red Cell Dist. Width 14.4 % (11.5-14.5); White Blood Cell Count 7.2 10^3/uL (4.8-10.8)
[2024-05-15 12:25] LABS: Protein/creatinine Ratio 0.2; Urine Protein 12 mg/dl
[2024-05-15 12:31] LABS: ALT (SGPT) 25 U/L (0-35); AST (SGOT) 27 U/L (14-36); Albumin 4.7 g/dl (3.5-5.0); Alkaline Phosphatase 109 U/L (38-126); Blood Urea Nitrogen 20 mg/dl (7-17); Calcium 9.9 mg/dl (8.4-10.2); Carbon Dioxide 27 mmol/L (22-30); Chloride 102 mmol/L (98-107); Glucose 99 mg/dl (70-99); Potassium 4.8 mmol/L (3.5-5.1); Sodium 141 mmol/L (135-145); Total Bilirubin 0.5 mg/dl (0.2-1.3); Total Protein 7.2 g/dl (6.3-8.2); eGFR > 60.00
== END ==
LOC: REG 11:19
PROVIDERS: ATTENDING PHYSICIAN Internal Medicine Hematology & Oncology; FAMILY PHYSICIAN Internal Medicine
DX: C56.9 Malignant neoplasm of unspecified ovary (principal); R19.04 Left lower quadrant abdominal swelling, mass and lump; J91.0 Malignant pleural effusion; C78.7 Secondary malignant neoplasm of liver and intrahepatic bile duct; L03.90 Cellulitis, unspecified; C57.01 Malignant neoplasm of right fallopian tube; R18.8 Other ascites
CPT/HCPCS: 36415; 80053; 82570; 84156; 85025

== ENCOUNTER → 2024-05-18 10:16 | Outpatient (REF) | payer MEDICARE, OTHER, SELFPAY ==
[2024-05-18 11:55] LABS: Urine Albumin Trace (Neg - Trace); Urine Bilirubin Negative (Negative); Urine Character Slightly Cloudy (Clear); Urine Color Yellow; Urine Glucose Negative (Negative); Urine Ketone Negative (Negative); Urine Leukocyte 2+ (Negative); Urine Nitrite Negative (Negative); Urine Occult Blood 3+ (Negative); Urine Urobilinogen Negative (Neg - 1+)
[2024-05-18 12:50] LABS: Urine Urothelial Cell 0-2 /LPF (FEW)
[2024-05-18 12:51] LABS: Urine Bacteria Moderate (Negative); Urine Red Blood Cell 16-20 /HPF (0-2); Urine White Cell 30-40 /HPF (0-5)
[2024-05-18 19:12] LABS: CA 125 112 U/mL (0-35)
== END ==
LOC: REG 10:16
PROVIDERS: ATTENDING PHYSICIAN Obstetrics & Gynecology Gynecologic Oncology; FAMILY PHYSICIAN Internal Medicine
DX: C56.9 Malignant neoplasm of unspecified ovary (principal); R19.04 Left lower quadrant abdominal swelling, mass and lump; J91.0 Malignant pleural effusion; C78.7 Secondary malignant neoplasm of liver and intrahepatic bile duct; L03.90 Cellulitis, unspecified; C57.01 Malignant neoplasm of right fallopian tube; R18.8 Other ascites; R82.79 Other abnormal findings on microbiological examination of urine
CPT/HCPCS: 36415; 81003; 81015; 86304; 87077; 87086

== ENCOUNTER → 2024-05-19 11:12 | Outpatient (REF) | payer MEDICARE, OTHER, SELFPAY ==
[2024-05-19 12:56] LABS: CA 125 111 U/mL (0-35)
== END ==
LOC: OIDL 11:12
PROVIDERS: ATTENDING PHYSICIAN Obstetrics & Gynecology Gynecologic Oncology
DX: C56.9 Malignant neoplasm of unspecified ovary (principal)
CPT/HCPCS: 86304

== ENCOUNTER → 2024-06-05 11:47 | Outpatient (REF) | payer MEDICARE, OTHER, SELFPAY ==
[2024-06-05 12:56] LABS: % Basophils 0.6 % (0-2); % Eosinophils 1.4 % (0-6); % Immature Granulocytes 0.2 % (0-0.5); % Lymphocytes 34.2 % (20.5-51.1); % Monocytes 9.7 % (1.7-9.3); % Neutrophils 53.9 % (42.2-75.2); Absolute Eosinophils 0.1 10^3/uL (0-0.7); Absolute Lymphocytes 2.3 10^3/uL (1.2-3.4); Absolute Monocytes 0.6 10^3/uL (0.1-0.6); Absolute Neutrophils 3.6 10^3/uL (1.4-6.5); Hematocrit 32.8 % (37.0-47.0); Hemoglobin 10.7 g/dL (12.0-16.0); Mean Corp Hgb Conc. 32.6 g/dL (33.0-37.0); Mean Corpuscular Hgb 30.5 pg (27.0-31.0); Mean Corpuscular Volume 93.4 fL (81.0-99.0); Mean Platelet Volume 9.8 fL (7.4-10.4); Nucleated Red Blood Cells % 0 %; Platelet Count 182 10^3/uL (130-400); Red Blood Cell Count 3.51 10^6/uL (4.20-5.40); White Blood Cell Count 6.6 10^3/uL (4.8-10.8)
[2024-06-05 13:40] LABS: ALT (SGPT) 22 U/L (0-35); AST (SGOT) 26 U/L (14-36); Albumin 4.4 g/dl (3.5-5.0); Alkaline Phosphatase 94 U/L (38-126); Blood Urea Nitrogen 20 mg/dl (7-17); Calcium 9.5 mg/dl (8.4-10.2); Carbon Dioxide 27 mmol/L (22-30); Chloride 104 mmol/L (98-107); Glucose 106 mg/dl (70-99); Potassium 4.6 mmol/L (3.5-5.1); Sodium 141 mmol/L (135-145); Total Bilirubin 0.2 mg/dl (0.2-1.3); Total Protein 6.7 g/dl (6.3-8.2); eGFR > 60.00
[2024-06-05 14:56] LABS: Protein/creatinine Ratio 0.1; Urine Protein 5 mg/dl
== END ==
LOC: REG 11:47
PROVIDERS: ATTENDING PHYSICIAN Internal Medicine Hematology & Oncology
DX: C56.9 Malignant neoplasm of unspecified ovary (principal); R19.04 Left lower quadrant abdominal swelling, mass and lump; J91.0 Malignant pleural effusion; C78.7 Secondary malignant neoplasm of liver and intrahepatic bile duct; L03.90 Cellulitis, unspecified; C57.01 Malignant neoplasm of right fallopian tube; R18.8 Other ascites
CPT/HCPCS: 36415; 80053; 82570; 84156; 85025

== ENCOUNTER → 2024-06-17 10:16 | Outpatient (REF) | payer MEDICARE, OTHER, SELFPAY | LOC: RAD 10:16 | PROVIDERS: ATTENDING PHYSICIAN Internal Medicine Hematology & Oncology; FAMILY PHYSICIAN Internal Medicine | DX: C56.9 Malignant neoplasm of unspecified ovary (principal); R19.04 Left lower quadrant abdominal swelling, mass and lump; J91.0 Malignant pleural effusion; C78.7 Secondary malignant neoplasm of liver and intrahepatic bile duct; L03.90 Cellulitis, unspecified; C57.01 Malignant neoplasm of right fallopian tube; R18.8 Other ascites; M25.552 Pain in left hip | CPT/HCPCS: 73502 ==

== ENCOUNTER → 2024-06-26 12:31 | Outpatient (REF) | payer MEDICARE, OTHER, SELFPAY ==
[2024-06-26 14:09] LABS: % Basophils 0.5 % (0-2); % Eosinophils 1.1 % (0-6); % Immature Granulocytes 0.3 % (0-0.5); % Lymphocytes 30.8 % (20.5-51.1); % Monocytes 9.3 % (1.7-9.3); Absolute Eosinophils 0.1 10^3/uL (0-0.7); Absolute Lymphocytes 2.3 10^3/uL (1.2-3.4); Absolute Monocytes 0.7 10^3/uL (0.1-0.6); Absolute Neutrophils 4.3 10^3/uL (1.4-6.5); Hematocrit 35.1 % (37.0-47.0); Hemoglobin 11.2 g/dL (12.0-16.0); Mean Corp Hgb Conc. 31.9 g/dL (33.0-37.0); Mean Corpuscular Hgb 29.6 pg (27.0-31.0); Mean Corpuscular Volume 92.6 fL (81.0-99.0); Mean Platelet Volume 9.7 fL (7.4-10.4); Nucleated Red Blood Cells % 0 %; Platelet Count 204 10^3/uL (130-400); Red Blood Cell Count 3.79 10^6/uL (4.20-5.40); Red Cell Dist. Width 16.2 % (11.5-14.5); White Blood Cell Count 7.3 10^3/uL (4.8-10.8)
[2024-06-26 15:45] LABS: Protein/creatinine Ratio 0.1; Urine Protein 9 mg/dl
[2024-06-26 16:01] LABS: ALT (SGPT) 25 U/L (0-35); AST (SGOT) 28 U/L (14-36); Albumin 4.4 g/dl (3.5-5.0); Alkaline Phosphatase 86 U/L (38-126); Blood Urea Nitrogen 19 mg/dl (7-17); Calcium 9.4 mg/dl (8.4-10.2); Carbon Dioxide 26 mmol/L (22-30); Chloride 104 mmol/L (98-107); Glucose 95 mg/dl (70-99); Potassium 4.9 mmol/L (3.5-5.1); Sodium 142 mmol/L (135-145); Total Bilirubin 0.5 mg/dl (0.2-1.3); Total Protein 6.9 g/dl (6.3-8.2); eGFR > 60.00
== END ==
LOC: REG 12:31
PROVIDERS: ATTENDING PHYSICIAN Internal Medicine Hematology & Oncology; FAMILY PHYSICIAN Internal Medicine
DX: C56.9 Malignant neoplasm of unspecified ovary (principal); R19.04 Left lower quadrant abdominal swelling, mass and lump; J91.0 Malignant pleural effusion; C78.7 Secondary malignant neoplasm of liver and intrahepatic bile duct; L03.90 Cellulitis, unspecified; C57.01 Malignant neoplasm of right fallopian tube; R18.8 Other ascites
CPT/HCPCS: 36415; 80053; 82570; 84156; 85025

== ENCOUNTER 2024-06-30 09:45 | Outpatient (RCR) | payer MEDICARE, OTHER, SELFPAY ==
[2024-06-30 12:05] LABS: CA 125 472 U/mL (0-35)
== END 2024-07-21 23:59 | disposition home or self-care (01) ==
LOC: OID 09:45
PROVIDERS: ATTENDING PHYSICIAN Obstetrics & Gynecology Gynecologic Oncology
DX: C56.9 Malignant neoplasm of unspecified ovary (principal); J91.0 Malignant pleural effusion; C78.7 Secondary malignant neoplasm of liver and intrahepatic bile duct; L03.90 Cellulitis, unspecified; C57.01 Malignant neoplasm of right fallopian tube; R18.8 Other ascites; M25.552 Pain in left hip
CPT/HCPCS: 86304

== ENCOUNTER → 2024-07-17 10:37 | Outpatient (REF) | payer MEDICARE, OTHER, SELFPAY ==
[2024-07-17 11:19] LABS: % Basophils 0.8 % (0-2); % Eosinophils 1.5 % (0-6); % Immature Granulocytes 0.3 % (0-0.5); % Lymphocytes 32.2 % (20.5-51.1); % Monocytes 9.5 % (1.7-9.3); % Neutrophils 55.7 % (42.2-75.2); Absolute Basophils 0.1 10^3/uL (0-0.2); Absolute Eosinophils 0.1 10^3/uL (0-0.7); Absolute Lymphocytes 2.1 10^3/uL (1.2-3.4); Absolute Monocytes 0.6 10^3/uL (0.1-0.6); Absolute Neutrophils 3.7 10^3/uL (1.4-6.5); Hematocrit 34.6 % (37.0-47.0); Hemoglobin 11.4 g/dL (12.0-16.0); Mean Corp Hgb Conc. 32.9 g/dL (33.0-37.0); Mean Corpuscular Hgb 30.6 pg (27.0-31.0); Mean Corpuscular Volume 92.8 fL (81.0-99.0); Mean Platelet Volume 10.2 fL (7.4-10.4); Nucleated Red Blood Cells % 0 %; Platelet Count 189 10^3/uL (130-400); Red Blood Cell Count 3.73 10^6/uL (4.20-5.40); Red Cell Dist. Width 17.1 % (11.5-14.5); White Blood Cell Count 6.6 10^3/uL (4.8-10.8)
[2024-07-17 11:40] LABS: ALT (SGPT) 26 U/L (0-35); AST (SGOT) 30 U/L (14-36); Albumin 4.6 g/dl (3.5-5.0); Alkaline Phosphatase 94 U/L (38-126); Blood Urea Nitrogen 18 mg/dl (7-17); Carbon Dioxide 27 mmol/L (22-30); Chloride 101 mmol/L (98-107); Glucose 108 mg/dl (70-99); Potassium 4.7 mmol/L (3.5-5.1); Sodium 138 mmol/L (135-145); Total Bilirubin 0.5 mg/dl (0.2-1.3); Total Protein 7.1 g/dl (6.3-8.2); eGFR > 60.00
[2024-07-17 11:56] LABS: Protein/creatinine Ratio 0.5; Urine Protein 14 mg/dl
== END ==
LOC: REG 10:37
PROVIDERS: ATTENDING PHYSICIAN Internal Medicine Hematology & Oncology; FAMILY PHYSICIAN Internal Medicine
DX: C56.9 Malignant neoplasm of unspecified ovary (principal); R19.04 Left lower quadrant abdominal swelling, mass and lump; J91.0 Malignant pleural effusion; C78.7 Secondary malignant neoplasm of liver and intrahepatic bile duct; L03.90 Cellulitis, unspecified; C57.01 Malignant neoplasm of right fallopian tube; R18.8 Other ascites
CPT/HCPCS: 36415; 80053; 82570; 84156; 85025

== ENCOUNTER → 2024-07-21 15:51 | Outpatient (REF) | payer MEDICARE, OTHER, SELFPAY ==
[2024-07-21 12:49] LABS: CA 125 605 U/mL (0-35)
== END ==
LOC: OIDL 15:51
PROVIDERS: ATTENDING PHYSICIAN Internal Medicine Hematology & Oncology
DX: C56.9 Malignant neoplasm of unspecified ovary (principal)
CPT/HCPCS: 86304

== ENCOUNTER → 2024-08-07 11:45 | Outpatient (REF) | payer MEDICARE, OTHER, SELFPAY ==
[2024-08-07 12:28] LABS: % Basophils 0.7 % (0-2); % Eosinophils 1.4 % (0-6); % Immature Granulocytes 0.4 % (0-0.5); % Lymphocytes 27.6 % (20.5-51.1); % Monocytes 11.4 % (1.7-9.3); % Neutrophils 58.5 % (42.2-75.2); Absolute Basophils 0.1 10^3/uL (0-0.2); Absolute Eosinophils 0.1 10^3/uL (0-0.7); Absolute Monocytes 0.8 10^3/uL (0.1-0.6); Absolute Neutrophils 4.3 10^3/uL (1.4-6.5); Hematocrit 35.8 % (37.0-47.0); Hemoglobin 11.7 g/dL (12.0-16.0); Mean Corp Hgb Conc. 32.7 g/dL (33.0-37.0); Mean Corpuscular Hgb 31.2 pg (27.0-31.0); Mean Corpuscular Volume 95.5 fL (81.0-99.0); Mean Platelet Volume 10.2 fL (7.4-10.4); Nucleated Red Blood Cells % 0 %; Platelet Count 235 10^3/uL (130-400); Red Blood Cell Count 3.75 10^6/uL (4.20-5.40); Red Cell Dist. Width 16.3 % (11.5-14.5); White Blood Cell Count 7.4 10^3/uL (4.8-10.8)
[2024-08-07 12:52] LABS: ALT (SGPT) 27 U/L (0-35); AST (SGOT) 30 U/L (14-36); Albumin 4.4 g/dl (3.5-5.0); Alkaline Phosphatase 120 U/L (38-126); Blood Urea Nitrogen 20 mg/dl (7-17); Calcium 9.1 mg/dl (8.4-10.2); Carbon Dioxide 25 mmol/L (22-30); Chloride 104 mmol/L (98-107); Glucose 106 mg/dl (70-99); Potassium 4.7 mmol/L (3.5-5.1); Sodium 139 mmol/L (135-145); Total Bilirubin 0.5 mg/dl (0.2-1.3); Total Protein 6.8 g/dl (6.3-8.2); eGFR > 60.00
[2024-08-07 13:25] LABS: CA 125 962 U/mL (0-35)
[2024-08-07 13:30] LABS: Urine Protein 6 mg/dl
== END ==
LOC: REG 11:45
PROVIDERS: ATTENDING PHYSICIAN Internal Medicine Hematology & Oncology; FAMILY PHYSICIAN Internal Medicine
DX: C56.9 Malignant neoplasm of unspecified ovary (principal); R19.04 Left lower quadrant abdominal swelling, mass and lump; J91.0 Malignant pleural effusion; C78.7 Secondary malignant neoplasm of liver and intrahepatic bile duct; L03.90 Cellulitis, unspecified; C57.01 Malignant neoplasm of right fallopian tube; R18.8 Other ascites; M25.552 Pain in left hip
CPT/HCPCS: 36415; 80053; 82570; 84156; 85025; 86304

== ENCOUNTER → 2024-08-27 10:16 | Outpatient (REF) | payer MEDICARE, OTHER, SELFPAY ==
[2024-08-27 19:39] LABS: CA 125 1320 U/mL (0-35)
== END ==
LOC: REG 10:16
PROVIDERS: ATTENDING PHYSICIAN Obstetrics & Gynecology Gynecologic Oncology; FAMILY PHYSICIAN Internal Medicine
DX: C56.9 Malignant neoplasm of unspecified ovary (principal); R19.04 Left lower quadrant abdominal swelling, mass and lump; J91.0 Malignant pleural effusion; C78.7 Secondary malignant neoplasm of liver and intrahepatic bile duct; L03.90 Cellulitis, unspecified; C57.01 Malignant neoplasm of right fallopian tube; R18.8 Other ascites
CPT/HCPCS: 36415; 86304

== ENCOUNTER → 2024-08-31 09:23 | Outpatient (REF) | payer MEDICARE, OTHER, SELFPAY ==
[2024-08-31 10:41] LABS: % Basophils 0.5 % (0-2); % Eosinophils 1.7 % (0-6); % Immature Granulocytes 0.4 % (0-0.5); % Lymphocytes 18.3 % (20.5-51.1); % Neutrophils 68.1 % (42.2-75.2); Absolute Eosinophils 0.1 10^3/uL (0-0.7); Absolute Lymphocytes 1.4 10^3/uL (1.2-3.4); Absolute Monocytes 0.9 10^3/uL (0.1-0.6); Absolute Neutrophils 5.3 10^3/uL (1.4-6.5); Hematocrit 35.9 % (37.0-47.0); Hemoglobin 11.9 g/dL (12.0-16.0); Mean Corp Hgb Conc. 33.1 g/dL (33.0-37.0); Mean Corpuscular Hgb 31.6 pg (27.0-31.0); Mean Corpuscular Volume 95.2 fL (81.0-99.0); Mean Platelet Volume 10.2 fL (7.4-10.4); Nucleated Red Blood Cells % 0 %; Platelet Count 206 10^3/uL (130-400); Red Blood Cell Count 3.77 10^6/uL (4.20-5.40); Red Cell Dist. Width 16.1 % (11.5-14.5); White Blood Cell Count 7.8 10^3/uL (4.8-10.8)
[2024-08-31 11:18] LABS: ALT (SGPT) 28 U/L (0-35); AST (SGOT) 31 U/L (14-36); Albumin 4.3 g/dl (3.5-5.0); Alkaline Phosphatase 142 U/L (38-126); Blood Urea Nitrogen 17 mg/dl (7-17); Calcium 9.5 mg/dl (8.4-10.2); Carbon Dioxide 25 mmol/L (22-30); Chloride 102 mmol/L (98-107); Glucose 108 mg/dl (70-99); Potassium 4.6 mmol/L (3.5-5.1); Sodium 138 mmol/L (135-145); Total Bilirubin 0.8 mg/dl (0.2-1.3); Total Protein 6.5 g/dl (6.3-8.2); eGFR > 60.00
[2024-08-31 11:39] LABS: Protein/creatinine Ratio 0.1; Urine Protein 8 mg/dl
[2024-09-01 02:11] LABS: TSH Reflex To Free T4 2.03 uIU/ml (0.47-4.68)
[2024-09-01 22:50] LABS: CA 125 1910 U/mL (0-35)
== END ==
LOC: REG 09:23
PROVIDERS: ATTENDING PHYSICIAN Obstetrics & Gynecology Gynecologic Oncology; FAMILY PHYSICIAN Internal Medicine
DX: C56.9 Malignant neoplasm of unspecified ovary (principal); R19.04 Left lower quadrant abdominal swelling, mass and lump; J91.0 Malignant pleural effusion; C78.7 Secondary malignant neoplasm of liver and intrahepatic bile duct; L03.90 Cellulitis, unspecified; C57.01 Malignant neoplasm of right fallopian tube; R18.8 Other ascites; M25.552 Pain in left hip; R82.79 Other abnormal findings on microbiological examination of urine
CPT/HCPCS: 36415; 80053; 82570; 84156; 84443; 85025; 86304; 87086

== ENCOUNTER → 2024-09-07 10:00 | Outpatient (REF) | payer MEDICARE, OTHER, SELFPAY ==
[2024-09-07 12:01] LABS: % Basophils 0.7 % (0-2); % Eosinophils 1.5 % (0-6); % Immature Granulocytes 0.5 % (0-0.5); % Lymphocytes 19.4 % (20.5-51.1); % Neutrophils 67.9 % (42.2-75.2); Absolute Basophils 0.1 10^3/uL (0-0.2); Absolute Eosinophils 0.1 10^3/uL (0-0.7); Absolute Lymphocytes 1.7 10^3/uL (1.2-3.4); Absolute Monocytes 0.9 10^3/uL (0.1-0.6); Absolute Neutrophils 5.8 10^3/uL (1.4-6.5); Hematocrit 36.1 % (37.0-47.0); Hemoglobin 11.7 g/dL (12.0-16.0); Mean Corp Hgb Conc. 32.4 g/dL (33.0-37.0); Mean Corpuscular Hgb 31.3 pg (27.0-31.0); Mean Corpuscular Volume 96.5 fL (81.0-99.0); Mean Platelet Volume 9.8 fL (7.4-10.4); Nucleated Red Blood Cells % 0 %; Platelet Count 225 10^3/uL (130-400); Red Blood Cell Count 3.74 10^6/uL (4.20-5.40); Red Cell Dist. Width 15.9 % (11.5-14.5); White Blood Cell Count 8.5 10^3/uL (4.8-10.8)
[2024-09-07 13:10] LABS: ALT (SGPT) 23 U/L (0-35); AST (SGOT) 28 U/L (14-36); Albumin 4.2 g/dl (3.5-5.0); Alkaline Phosphatase 160 U/L (38-126); Blood Urea Nitrogen 15 mg/dl (7-17); Calcium 9.5 mg/dl (8.4-10.2); Carbon Dioxide 26 mmol/L (22-30); Chloride 102 mmol/L (98-107); Glucose 94 mg/dl (70-99); Magnesium 2.2 mg/dl (1.6-2.3); Potassium 5.1 mmol/L (3.5-5.1); Sodium 137 mmol/L (135-145); Total Bilirubin 0.9 mg/dl (0.2-1.3); Total Protein 6.6 g/dl (6.3-8.2); eGFR > 60.00
[2024-09-07 21:43] LABS: CA 125 1860 U/mL (0-35)
== END ==
LOC: REG 10:00
PROVIDERS: ATTENDING PHYSICIAN Internal Medicine Hematology & Oncology; FAMILY PHYSICIAN Internal Medicine
DX: C56.9 Malignant neoplasm of unspecified ovary (principal); R19.04 Left lower quadrant abdominal swelling, mass and lump; J91.0 Malignant pleural effusion; C78.7 Secondary malignant neoplasm of liver and intrahepatic bile duct; L03.90 Cellulitis, unspecified; C57.01 Malignant neoplasm of right fallopian tube; M25.552 Pain in left hip
CPT/HCPCS: 36415; 80053; 83735; 85025; 86304

== ENCOUNTER → 2024-09-28 11:03 | Outpatient (REF) | payer MEDICARE, OTHER, SELFPAY ==
[2024-09-28 11:38] LABS: % Basophils 0.5 % (0-2); % Eosinophils 0.8 % (0-6); % Immature Granulocytes 0.5 % (0-0.5); % Lymphocytes 20.4 % (20.5-51.1); % Monocytes 8.2 % (1.7-9.3); % Neutrophils 69.6 % (42.2-75.2); Absolute Eosinophils 0.1 10^3/uL (0-0.7); Absolute Lymphocytes 1.6 10^3/uL (1.2-3.4); Absolute Monocytes 0.6 10^3/uL (0.1-0.6); Absolute Neutrophils 5.3 10^3/uL (1.4-6.5); Hematocrit 36.2 % (37.0-47.0); Hemoglobin 11.3 g/dL (12.0-16.0); Mean Corp Hgb Conc. 31.2 g/dL (33.0-37.0); Mean Corpuscular Hgb 29.5 pg (27.0-31.0); Mean Corpuscular Volume 94.5 fL (81.0-99.0); Nucleated Red Blood Cells % 0 %; Platelet Count 169 10^3/uL (130-400); Red Blood Cell Count 3.83 10^6/uL (4.20-5.40); Red Cell Dist. Width 15.1 % (11.5-14.5); White Blood Cell Count 7.7 10^3/uL (4.8-10.8)
[2024-09-28 12:32] LABS: ALT (SGPT) 78 U/L (0-35); AST (SGOT) 58 U/L (14-36); Albumin 4.2 g/dl (3.5-5.0); Alkaline Phosphatase 162 U/L (38-126); Blood Urea Nitrogen 13 mg/dl (7-17); Calcium 9.7 mg/dl (8.4-10.2); Carbon Dioxide 25 mmol/L (22-30); Chloride 105 mmol/L (98-107); Glucose 106 mg/dl (70-99); Potassium 4.2 mmol/L (3.5-5.1); Sodium 140 mmol/L (135-145); Total Bilirubin 0.8 mg/dl (0.2-1.3); Total Protein 6.5 g/dl (6.3-8.2); eGFR > 60.00
== END ==
LOC: REG 11:03
PROVIDERS: ATTENDING PHYSICIAN Internal Medicine Hematology & Oncology; FAMILY PHYSICIAN Internal Medicine
DX: C56.9 Malignant neoplasm of unspecified ovary (principal); R19.04 Left lower quadrant abdominal swelling, mass and lump; J91.0 Malignant pleural effusion; C78.7 Secondary malignant neoplasm of liver and intrahepatic bile duct; L03.90 Cellulitis, unspecified; C57.01 Malignant neoplasm of right fallopian tube; R18.8 Other ascites; M25.552 Pain in left hip
CPT/HCPCS: 36415; 80053; 83735; 85025

== ENCOUNTER → 2024-10-19 10:26 | Outpatient (REF) | payer MEDICARE, OTHER, SELFPAY ==
[2024-10-19 11:55] LABS: % Basophils 0.4 % (0-2); % Eosinophils 0.6 % (0-6); % Immature Granulocytes 0.4 % (0-0.5); % Lymphocytes 28.5 % (20.5-51.1); % Monocytes 11.8 % (1.7-9.3); % Neutrophils 58.3 % (42.2-75.2); Absolute Lymphocytes 1.5 10^3/uL (1.2-3.4); Absolute Monocytes 0.6 10^3/uL (0.1-0.6); Absolute Neutrophils 3.2 10^3/uL (1.4-6.5); Hematocrit 32.3 % (37.0-47.0); Hemoglobin 10.2 g/dL (12.0-16.0); Mean Corp Hgb Conc. 31.6 g/dL (33.0-37.0); Mean Corpuscular Hgb 28.7 pg (27.0-31.0); Mean Corpuscular Volume 90.7 fL (81.0-99.0); Mean Platelet Volume 10.9 fL (7.4-10.4); Nucleated Red Blood Cells % 0 %; Platelet Count 145 10^3/uL (130-400); Red Blood Cell Count 3.56 10^6/uL (4.20-5.40); Red Cell Dist. Width 15.5 % (11.5-14.5); White Blood Cell Count 5.4 10^3/uL (4.8-10.8)
[2024-10-19 12:42] LABS: ALT (SGPT) 26 U/L (0-35); AST (SGOT) 32 U/L (14-36); Albumin 3.8 g/dl (3.5-5.0); Alkaline Phosphatase 118 U/L (38-126); Blood Urea Nitrogen 18 mg/dl (7-17); Calcium 9.3 mg/dl (8.4-10.2); Carbon Dioxide 25 mmol/L (22-30); Chloride 106 mmol/L (98-107); Glucose 96 mg/dl (70-99); Magnesium 1.9 mg/dl (1.6-2.3); Potassium 4.4 mmol/L (3.5-5.1); Sodium 142 mmol/L (135-145); Total Bilirubin 0.5 mg/dl (0.2-1.3); Total Protein 6.3 g/dl (6.3-8.2); eGFR > 60.00
[2024-10-19 20:28] LABS: CA 125 247 U/mL (0-35)
== END ==
LOC: REG 10:26
PROVIDERS: ATTENDING PHYSICIAN Internal Medicine Hematology & Oncology; FAMILY PHYSICIAN Internal Medicine
DX: C56.9 Malignant neoplasm of unspecified ovary (principal); R19.01 Right upper quadrant abdominal swelling, mass and lump; J91.0 Malignant pleural effusion; C78.7 Secondary malignant neoplasm of liver and intrahepatic bile duct; L03.90 Cellulitis, unspecified; C57.01 Malignant neoplasm of right fallopian tube; R18.8 Other ascites; M25.552 Pain in left hip
CPT/HCPCS: 36415; 80053; 83735; 85025; 86304

== ENCOUNTER → 2024-10-28 12:47 | Outpatient (REF) | payer MEDICARE, OTHER, SELFPAY | LOC: RAD 12:47 | PROVIDERS: ATTENDING PHYSICIAN Obstetrics & Gynecology Gynecologic Oncology; FAMILY PHYSICIAN Internal Medicine | DX: C56.9 Malignant neoplasm of unspecified ovary (principal); R19.04 Left lower quadrant abdominal swelling, mass and lump; J91.0 Malignant pleural effusion; C78.7 Secondary malignant neoplasm of liver and intrahepatic bile duct; L03.90 Cellulitis, unspecified; C57.01 Malignant neoplasm of right fallopian tube; R18.8 Other ascites; M25.552 Pain in left hip | CPT/HCPCS: 71260; 74177; Q9967 ==

== ENCOUNTER → 2024-11-10 10:21 | Outpatient (REF) | payer MEDICARE, OTHER, SELFPAY ==
[2024-11-10 12:36] LABS: % Basophils 0.8 % (0-2); % Eosinophils 1.7 % (0-6); % Immature Granulocytes 0.6 % (0-0.5); % Lymphocytes 29.7 % (20.5-51.1); % Monocytes 10.9 % (1.7-9.3); % Neutrophils 56.3 % (42.2-75.2); Absolute Eosinophils 0.1 10^3/uL (0-0.7); Absolute Lymphocytes 1.6 10^3/uL (1.2-3.4); Absolute Monocytes 0.6 10^3/uL (0.1-0.6); Hematocrit 31.9 % (37.0-47.0); Hemoglobin 10.1 g/dL (12.0-16.0); Mean Corp Hgb Conc. 31.7 g/dL (33.0-37.0); Mean Corpuscular Hgb 27.5 pg (27.0-31.0); Mean Corpuscular Volume 86.9 fL (81.0-99.0); Nucleated Red Blood Cells % 0 %; Platelet Count 114 10^3/uL (130-400); Red Blood Cell Count 3.67 10^6/uL (4.20-5.40); Red Cell Dist. Width 16.4 % (11.5-14.5); White Blood Cell Count 5.3 10^3/uL (4.8-10.8)
[2024-11-10 13:26] LABS: ALT (SGPT) 25 U/L (0-35); AST (SGOT) 29 U/L (14-36); Albumin 3.8 g/dl (3.5-5.0); Alkaline Phosphatase 110 U/L (38-126); Blood Urea Nitrogen 17 mg/dl (7-17); Calcium 9.3 mg/dl (8.4-10.2); Carbon Dioxide 24 mmol/L (22-30); Chloride 108 mmol/L (98-107); Glucose 114 mg/dl (70-99); Magnesium 2.1 mg/dl (1.6-2.3); Potassium 4.2 mmol/L (3.5-5.1); Sodium 141 mmol/L (135-145); Total Bilirubin 0.5 mg/dl (0.2-1.3); Total Protein 6.1 g/dl (6.3-8.2); eGFR > 60.00
== END ==
LOC: REG 10:21
PROVIDERS: ATTENDING PHYSICIAN Internal Medicine Hematology & Oncology
DX: C56.9 Malignant neoplasm of unspecified ovary (principal); R19.04 Left lower quadrant abdominal swelling, mass and lump; J91.0 Malignant pleural effusion; C78.7 Secondary malignant neoplasm of liver and intrahepatic bile duct; L03.90 Cellulitis, unspecified; C57.01 Malignant neoplasm of right fallopian tube; R18.8 Other ascites; M25.552 Pain in left hip
CPT/HCPCS: 36415; 80053; 83735; 85025

== ENCOUNTER → 2024-11-13 15:29 | Outpatient (REF) | payer MEDICARE, OTHER, SELFPAY ==
[2024-11-13 16:56] LABS: CA 125 89.1 U/mL (0-35)
== END ==
LOC: OIDL 15:29
PROVIDERS: ATTENDING PHYSICIAN Obstetrics & Gynecology Gynecologic Oncology
DX: C56.9 Malignant neoplasm of unspecified ovary (principal); R19.04 Left lower quadrant abdominal swelling, mass and lump; J91.0 Malignant pleural effusion; C78.7 Secondary malignant neoplasm of liver and intrahepatic bile duct; L03.90 Cellulitis, unspecified
CPT/HCPCS: 86304

== ENCOUNTER → 2024-12-01 10:40 | Outpatient (REF) | payer MEDICARE, OTHER, SELFPAY ==
[2024-12-01 11:29] LABS: % Basophils 0.8 % (0-2); % Eosinophils 0.8 % (0-6); % Immature Granulocytes 0.2 % (0-0.5); % Lymphocytes 31.3 % (20.5-51.1); % Neutrophils 52.9 % (42.2-75.2); Absolute Basophils 0.1 10^3/uL (0-0.2); Absolute Eosinophils 0.1 10^3/uL (0-0.7); Absolute Lymphocytes 1.9 10^3/uL (1.2-3.4); Absolute Monocytes 0.9 10^3/uL (0.1-0.6); Absolute Neutrophils 3.3 10^3/uL (1.4-6.5); Hematocrit 32.4 % (37.0-47.0); Mean Corp Hgb Conc. 30.9 g/dL (33.0-37.0); Mean Corpuscular Hgb 26.2 pg (27.0-31.0); Mean Platelet Volume 10.8 fL (7.4-10.4); Nucleated Red Blood Cells % 0 %; Platelet Count 145 10^3/uL (130-400); Red Blood Cell Count 3.81 10^6/uL (4.20-5.40); Red Cell Dist. Width 18.2 % (11.5-14.5); White Blood Cell Count 6.2 10^3/uL (4.8-10.8)
[2024-12-01 12:08] LABS: ALT (SGPT) 63 U/L (0-35); AST (SGOT) 56 U/L (14-36); Albumin 4.5 g/dl (3.5-5.0); Alkaline Phosphatase 180 U/L (38-126); Blood Urea Nitrogen 13 mg/dl (7-17); Calcium 9.4 mg/dl (8.4-10.2); Carbon Dioxide 24 mmol/L (22-30); Chloride 112 mmol/L (98-107); Glucose 78 mg/dl (70-99); Magnesium 2.1 mg/dl (1.6-2.3); Potassium 4.6 mmol/L (3.5-5.1); Sodium 143 mmol/L (135-145); Total Bilirubin 0.8 mg/dl (0.2-1.3); Total Protein 6.9 g/dl (6.3-8.2); eGFR > 60.00
== END ==
LOC: REG 10:40
PROVIDERS: ATTENDING PHYSICIAN Internal Medicine Hematology & Oncology; FAMILY PHYSICIAN Internal Medicine
DX: C56.9 Malignant neoplasm of unspecified ovary (principal); R19.04 Left lower quadrant abdominal swelling, mass and lump; J91.0 Malignant pleural effusion; C78.7 Secondary malignant neoplasm of liver and intrahepatic bile duct; L03.90 Cellulitis, unspecified; C57.01 Malignant neoplasm of right fallopian tube; R18.8 Other ascites; M25.552 Pain in left hip
CPT/HCPCS: 36415; 80053; 83735; 85025

== ENCOUNTER → 2024-12-22 10:59 | Outpatient (REF) | payer MEDICARE, OTHER, SELFPAY ==
[2024-12-22 11:30] LABS: % Basophils 0.7 % (0-2); % Eosinophils 1.3 % (0-6); % Immature Granulocytes 0.4 % (0-0.5); % Lymphocytes 30.1 % (20.5-51.1); % Monocytes 11.6 % (1.7-9.3); % Neutrophils 55.9 % (42.2-75.2); Absolute Eosinophils 0.1 10^3/uL (0-0.7); Absolute Lymphocytes 1.7 10^3/uL (1.2-3.4); Absolute Monocytes 0.6 10^3/uL (0.1-0.6); Absolute Neutrophils 3.1 10^3/uL (1.4-6.5); Hemoglobin 9.3 g/dL (12.0-16.0); Mean Corpuscular Volume 86.6 fL (81.0-99.0); Mean Platelet Volume 10.6 fL (7.4-10.4); Nucleated Red Blood Cells % 0 %; Platelet Count 113 10^3/uL (130-400); Red Blood Cell Count 3.58 10^6/uL (4.20-5.40); Red Cell Dist. Width 20.5 % (11.5-14.5); White Blood Cell Count 5.5 10^3/uL (4.8-10.8)
[2024-12-22 12:38] LABS: CA 125 104 U/mL (0-35)
[2024-12-22 12:57] LABS: ALT (SGPT) 56 U/L (0-35); AST (SGOT) 54 U/L (14-36); Albumin 4.2 g/dl (3.5-5.0); Alkaline Phosphatase 248 U/L (38-126); Blood Urea Nitrogen 17 mg/dl (7-17); Calcium 9.4 mg/dl (8.4-10.2); Carbon Dioxide 24 mmol/L (22-30); Chloride 111 mmol/L (98-107); Glucose 107 mg/dl (70-99); Magnesium 1.9 mg/dl (1.6-2.3); Potassium 4.7 mmol/L (3.5-5.1); Sodium 145 mmol/L (135-145); Total Bilirubin 0.7 mg/dl (0.2-1.3); Total Protein 6.8 g/dl (6.3-8.2); eGFR > 60.00
== END ==
LOC: REG 10:59
PROVIDERS: ATTENDING PHYSICIAN Internal Medicine Hematology & Oncology; FAMILY PHYSICIAN Internal Medicine
DX: C56.9 Malignant neoplasm of unspecified ovary (principal); R19.04 Left lower quadrant abdominal swelling, mass and lump; J91.0 Malignant pleural effusion; C78.7 Secondary malignant neoplasm of liver and intrahepatic bile duct; L03.90 Cellulitis, unspecified; C57.01 Malignant neoplasm of right fallopian tube; R18.8 Other ascites; M25.552 Pain in left hip
CPT/HCPCS: 36415; 80053; 83735; 85025; 86304

== ENCOUNTER 2024-12-23 12:56 | Emergency (ER) | payer MEDICARE, OTHER, SELFPAY ==
[2024-12-23 12:58] VITALS: BP 137/85
--- NOTE | 2024-12-23 15:00 | ED.GENMED ---
History of Present Illness
General
Chief Complaint: DVT/Possible Blood Clot
Source: patient
Exam Limitations: none
Time Seen by Provider: 12/23/24 13:09
Nursing documentation reviewed up to this point in time: agreed with
History of Present Illness
History of Present Illness:
69-year-old female past medical history of hypertension hyperlipidemia presenting to the emergency department today with concerns of swelling slight redness to the right foot worsening over the past 2 days. Denies any systemic symptoms fevers
nausea vomiting or chills. Denies any numbness or weakness.
Past History
Past History
ED Past Medical History: None
ED Past Surgical History: None
Social History
Tobacco: Non-smoker
Review of Systems
Review of Systems
Allergies reviewed?: Yes
All Other Systems: ROS reviewed and negative except as documented in HPI and ROS
Phy Exam
Physical Exam
Physical Exam:
GENERAL: Alert , in no apparent distress
EYE: pupils equal and reactive
NECK: Supple, no significant adenopathy.
ENT: o/p clr, mmm.
CARDIAC: Regular rate and rhythm .
LUNGS: Clear breath sounds bilaterally, no acute respiratory distress, no wheezes/rales/rhonchi
ABDOMEN: Soft, without focal tenderness, no r/g, no cvat
NEUROLOGICAL: Alert and oriented, no focal neuro deficits
SKIN: Warm and dry, skin intact.
MUSCULOSKELETAL: Slight redness and swelling to the right midfoot there is some vague swelling and edema into the right velasco region without redness or warmth to the area. Well perfused.
PSYCH: Normal and appropriate interaction.
Course
Orders/Labs/Results
Orders:
Orders
12/23/24 13:00
US Legs, Right [US Periph Venous LOWER Ext RT] Urgent
Comment:
Reason For Exam: swelling
12/23/24 14:58
Cephalexin Monohydrate [Keflex] 500 mg PO NOW STA
Vital Signs
Initial and Last Documented VS:
Initial Vital Signs
Temp Pulse Resp BP Pulse Ox
99.0 F 87 16 137/85 98
12/23/24 12:58 12/23/24 12:58 12/23/24 12:58 12/23/24 12:58 12/23/24 12:58
Last Documented Vital Signs
Temp Pulse Resp BP Pulse Ox
99.0 F 87 16 137/85 98
12/23/24 12:58 12/23/24 12:58 12/23/24 12:58 12/23/24 12:58 12/23/24 12:58
MDM/Problems Addressed
MDM/Problems Addressed:
69-year-old female presenting to the emergency department today with concerns of right foot redness and swelling worsening over the past 2 days. There are some swelling extending into the right velasco but no significant redness or warmth in that
area. Ultrasound performed without signs of blood clot patient generally well-appearing no distress no chest pain shortness of breath nausea vomiting or fevers. Vital signs are normal. Patient started on Keflex for possibility of cellulitis and
otherwise advised for close outpatient follow-up. Return precautions given.
*Critical Care Note
Total Time (30-74mins, 75-104mins- exclusive of procedures): Not Applicable
ED Attending Note
-
Portions of this chart may have been created with voice recognition software.� Occasional wrong word or��sound alike� substitutions may have occurred due to the inherent limitations of voice recognition software.
Discharge Plan
Departure
Patient Disposition: Home (Routine Discharge)
Date of Disposition: 12/23/24
Time of Disposition: 15:02
Patient with high blood pressure during this ER visit?: No
Condition: Good
Covid-19: Not Applicable
Discharge Problem:
Cellulitis of leg, right
Instructions: Cellulitis (Skin Infection), Adult (DC)
Prescriptions:
New
cephalexin 500 mg capsule
500 mg PO QID 7 Days Qty: 28 0RF
No Action
simvastatin 20 mg Tablet
20 mg PO HS
omeprazole 20 mg Capsule,Delayed Release(Dr/Ec)
20 mg PO DAILY
bupropion HCl 150 mg Tablet Extended Release 24 Hr
150 mg PO DAILY
citalopram 20 mg Tablet
30 mg PO HS
acetaminophen [Tylenol Extra Strength] 500 mg Tablet
1,000 mg PO Q6 7 Days Qty: 56 0RF
ibuprofen 600 mg Tablet
600 mg PO Q4HPRN PRN (Reason: mod pain) 7 Days Qty: 42 0RF
furosemide [Lasix] 20 mg tablet
20 mg PO DAILY Qty: 3 0RF
Referrals:
Dylan Plascencia MD [Family Provider, Internal Medicine]
Activity Restrictions/Additional Instructions:
You came to the emergency department today with concerns of right lower extremity swelling discomfort and redness. This could be consistent with cellulitis. There is no evidence of blood clot on ultrasound here. Please take the prescribed
antibiotic and follow-up closely with your primary care doctor. Return for any worsening, new or concerning symptoms.
Interventions
Interventions:
*Risk Screen - Suicide Last Done: 12/23/24 12:58
*Neglect/Abuse Screening Last Done: 12/23/24 12:58
ED- Cardiac Assessment Last Done: 12/23/24 13:12
ED- Pulmonary Assessment Last Done: 12/23/24 13:12
ED-Peripheral Vascular Assessment Last Done: 12/23/24 13:13
ED-Skin Assessment Last Done: 12/23/24 13:12
Discharge Date and Time
Print Language: KOREAN
[2024-12-23] MEDS: KEFLEX 500 MG PO (15:12)
== END 2024-12-23 15:35 | disposition home or self-care (01) ==
LOC: EMR 12:56
PROVIDERS: EMERGENCY PHYSICIAN Emergency Medicine; FAMILY PHYSICIAN Internal Medicine
DX: L03.115 Cellulitis of right lower limb (principal); E78.5 Hyperlipidemia, unspecified; I10 Essential (primary) hypertension
CPT/HCPCS: 99284; 93971

== ENCOUNTER → 2025-01-12 11:00 | Outpatient (REF) | payer MEDICARE, OTHER, SELFPAY ==
[2025-01-12 11:53] LABS: % Basophils 0.5 % (0-2); % Eosinophils 0.9 % (0-6); % Immature Granulocytes 0.2 % (0-0.5); % Lymphocytes 28.6 % (20.5-51.1); % Neutrophils 56.8 % (42.2-75.2); Absolute Eosinophils 0.1 10^3/uL (0-0.7); Absolute Lymphocytes 1.6 10^3/uL (1.2-3.4); Absolute Monocytes 0.7 10^3/uL (0.1-0.6); Absolute Neutrophils 3.2 10^3/uL (1.4-6.5); Hematocrit 28.9 % (37.0-47.0); Hemoglobin 8.5 g/dL (12.0-16.0); Mean Corp Hgb Conc. 29.4 g/dL (33.0-37.0); Mean Corpuscular Hgb 25.1 pg (27.0-31.0); Mean Corpuscular Volume 85.5 fL (81.0-99.0); Mean Platelet Volume 10.4 fL (7.4-10.4); Nucleated Red Blood Cells % 0 %; Platelet Count 135 10^3/uL (130-400); Red Blood Cell Count 3.38 10^6/uL (4.20-5.40); White Blood Cell Count 5.7 10^3/uL (4.8-10.8)
[2025-01-12 13:26] LABS: ALT (SGPT) 90 U/L (0-35); AST (SGOT) 89 U/L (14-36); Albumin 4.1 g/dl (3.5-5.0); Alkaline Phosphatase 327 U/L (38-126); Blood Urea Nitrogen 16 mg/dl (7-17); Calcium 9.4 mg/dl (8.4-10.2); Carbon Dioxide 25 mmol/L (22-30); Chloride 111 mmol/L (98-107); Glucose 108 mg/dl (70-99); Magnesium 2.1 mg/dl (1.6-2.3); Potassium 4.6 mmol/L (3.5-5.1); Sodium 143 mmol/L (135-145); Total Bilirubin 0.8 mg/dl (0.2-1.3); Total Protein 6.5 g/dl (6.3-8.2); eGFR > 60.00
[2025-01-12 13:36] LABS: CA 125 179 U/mL (0-35)
== END ==
LOC: REG 11:00
PROVIDERS: ATTENDING PHYSICIAN Internal Medicine Hematology & Oncology
DX: C56.9 Malignant neoplasm of unspecified ovary (principal); R19.04 Left lower quadrant abdominal swelling, mass and lump; J91.0 Malignant pleural effusion; C78.7 Secondary malignant neoplasm of liver and intrahepatic bile duct; L03.90 Cellulitis, unspecified; C57.01 Malignant neoplasm of right fallopian tube; R18.8 Other ascites; M25.552 Pain in left hip
CPT/HCPCS: 36415; 80053; 83735; 85025; 86304

== ENCOUNTER 2025-01-15 12:41 | Outpatient (RCR) | payer MEDICARE, OTHER, SELFPAY ==
[2025-01-15 13:24] LABS: Iron 30 ug/dl (37-170)
[2025-01-15 13:33] LABS: Percent Saturation 6 % (20-50); Total Iron Binding Capacity 492 ug/dl (265-497)
[2025-01-15 13:51] LABS: Ferritin 15.8 ng/ml (11.1-264.0)
[2025-01-15 14:23] LABS: Folate 16.4 ng/ml (2.76-20); Vitamin B12 406 pg/ml (239-931)
[2025-01-15 16:20] LABS: CA 125 194 U/mL (0-35)
== END 2025-01-18 23:59 | disposition home or self-care (01) ==
LOC: OID 12:41
PROVIDERS: ATTENDING PHYSICIAN Obstetrics & Gynecology Gynecologic Oncology
DX: C56.9 Malignant neoplasm of unspecified ovary (principal); C78.7 Secondary malignant neoplasm of liver and intrahepatic bile duct; C57.01 Malignant neoplasm of right fallopian tube; R19.04 Left lower quadrant abdominal swelling, mass and lump; J91.0 Malignant pleural effusion; L03.90 Cellulitis, unspecified; R18.8 Other ascites; M25.522 Pain in left elbow
CPT/HCPCS: 82607; 82728; 82746; 83540; 83550; 86304

== ENCOUNTER → 2025-01-20 06:55 | Outpatient (REF) | payer MEDICARE, OTHER, SELFPAY | LOC: RAD 06:55 | PROVIDERS: ATTENDING PHYSICIAN Obstetrics & Gynecology Gynecologic Oncology; FAMILY PHYSICIAN Internal Medicine | DX: C56.9 Malignant neoplasm of unspecified ovary (principal); R19.04 Left lower quadrant abdominal swelling, mass and lump; J91.0 Malignant pleural effusion; C78.7 Secondary malignant neoplasm of liver and intrahepatic bile duct; C57.01 Malignant neoplasm of right fallopian tube; L03.90 Cellulitis, unspecified; R18.8 Other ascites; M25.552 Pain in left hip | CPT/HCPCS: 71260; 74177; Q9967 ==

== ENCOUNTER 2025-02-15 08:27 | Emergency (ER) | payer MEDICARE, OTHER, SELFPAY ==
[2025-02-15 08:35] VITALS: BP 108/58
--- NOTE | 2025-02-15 08:46 | EDRN ---
Jayden ADAMS in room w/ pt.
[2025-02-15] MEDS: MOTRIN 600 MG PO (09:01)
[2025-02-15 09:12] VITALS: BMI 28.9
--- NOTE | 2025-02-15 10:15 | EDRN ---
This RN went to get tylenol as ordered but when approached room w/ med pt had left. Jayden ADAMS informed. Sling placed by ED PCT. Nayeli POMPA assisted w/ placement of splint, placed by Jayden ADAMS.
--- NOTE | 2025-02-15 10:33 | ED.GENMED ---
History of Present Illness
General
Chief Complaint: Fall
Source: patient
Exam Limitations: none
Time Seen by Provider: 02/15/25 08:43
Nursing documentation reviewed up to this point in time: agreed with
History of Present Illness
History of Present Illness:
see MDM
Past History
Past History
ED Past Medical History: Cancer, HTN, Hypercholesterolemia and Psychiatric
ED Past Surgical History: Gynecological
Social History
Tobacco: Non-smoker
Review of Systems
Review of Systems
Allergies reviewed?: Yes
All Other Systems: Not applicable
Phy Exam
Physical Exam
Physical Exam:
GENERAL: Alert , in no apparent distress
HEAD: NCAT
NECK: no midline tenderness, active ROM intact, no paraspinal muscle tenderness;
EYE: pupils equal and reactive, EOMs intact.
ENT: o/p clr, mmm. no hemotympanum
cv: 2+ radial pulse, cap refill L hand intact
back: nontender ful rom
NEUROLOGICAL: Alert and oriented, no focal neuro deficits, CN intact, 5/5 strength, sensation intact
SKIN: Warm and dry, no bruising or wounds
MUSCULOSKELETAL: L wrist dorsal deformity distal radius; normal sensation, no hand tenderness, prox forearm, elbow or shoulder tenderness; able to move her fingers;
nv intact
no other trauma
PSYCH: Normal and appropriate interaction.
Course
Orders/Labs/Results
Orders:
Orders
02/15/25 08:37
Wrist, Left 3 Views CR [CR Wrist - Left Min 3 Views] Urgent
Comment:
Reason For Exam: fell and landed on left wrist
02/15/25 08:48
Ibuprofen [Motrin] 600 mg PO NOW STA
02/15/25 09:32
Wrist, Left 3 Views CR [CR Wrist - Left Min 3 Views] Urgent
Comment:
Reason For Exam: post reduction
02/15/25 09:37
Acetaminophen [Tylenol] 650 mg PO NOW STA
Vital Signs
Initial and Last Documented VS:
Initial Vital Signs
Temp Pulse Resp BP Pulse Ox
36.8 C 101 16 108/58 98
02/15/25 08:35 02/15/25 08:35 02/15/25 08:35 02/15/25 08:35 02/15/25 08:35
Last Documented Vital Signs
Temp Pulse Resp BP Pulse Ox
36.8 C 101 16 108/58 98
02/15/25 08:35 02/15/25 08:35 02/15/25 08:35 02/15/25 08:35 02/15/25 08:35
Procedures
Joint/Fracture Reduction
Left Distal Dorsal Wrist:
Indication for procedure:: disal radius fx with deformity
Procedure completed by: berkley rooney
Consent form signed: No
If no, reason: Emergency procedure (verbal)
Joint reduced: without anesthesia
Anesthesia/sedation: Injection to joint space
Injury was: closed
Further treatement: needs re-check only
Post reduction exam: stable
Capillary Refill: normal
Normal distal neurovascular exam?: Yes
MDM/Problems Addressed
Differential Diagnosis Includes:
see MDM
MDM/Problems Addressed:
Note:
CHIEF COMPLAINT(S)
- Suspected wrist fracture
HISTORY OF PRESENT ILLNESS
The patient is a 70-year-old female with a history of ovarian cancer, currently undergoing chemotherapy treatments every three weeks. She has also had surgery related to her cancer.
presents after mechanical trip and fall backwards on outstretched L hand cauisng L wrist deformity.
she reports no pain or issues extending into the elbow or shoulder and denies previous bone fractures. no head strike, neck pain, back pain, trouble breathing
She has not reported significant pain and opts for ibuprofen for pain relief, declining stronger analgesics.
PHYSICAL EXAM
- Musculoskeletal: Suspected wrist fracture with visible misalignment on x-ray. Sensory examination indicates no deficit; the patient can feel touch on the affected area. Patient is right-handed.
- Nursing notes reviewed and vital signs reviewed.
PROBLEM LIST
Acute Problems:
- Suspected wrist fracture with visible misalignment, requiring potential realignment and temporary casting.
Chronic Problems:
- Ovarian cancer currently being treated with chemotherapy.
PLAN
- Realignment of the wrist bones may be necessary, followed by the application of a temporary cast.
- Referral to a hand specialist for further management.
- Administer ibuprofen for pain relief, as requested by the patient.
- No stronger pain management required at this moment according to patient preference.
DIFFERENTIAL DIAGNOSIS
The Differential Diagnosis includes, in no particular order and is not limited to:
- Distal radius fracture
- Scaphoid fracture
- Wrist ligament injury
- Ulnar styloid fracture
- Wrist sprain
- Carpal bone fracture
- Rheumatoid arthritis exacerbation
- Osteoarthritis
- Gout
- Tendonitis
xray indep reviewed, showing distal radius fx with dorsal angulation and ulnar styloid
d/w dr. adler from ortho
recommended closed reduciton and sugar tong
reduction sucvcessful after hematoma block with some improvement of alignment; still impacted fx; but less angulation
splinted sugar tong
cap refill intact
*Pulse Oximetry
SaO2: 98
Oxygen Mode of Delivery: Room air
Patient hypoxic: no (98)
*Critical Care Note
Total Time (30-74mins, 75-104mins- exclusive of procedures): Not Applicable
ED Attending Note
-
Portions of this chart may have been created with voice recognition software.� Occasional wrong word or��sound alike� substitutions may have occurred due to the inherent limitations of voice recognition software.
Discharge Plan
Departure
Patient Disposition: Home (Routine Discharge)
Date of Disposition: 02/15/25
Time of Disposition: 09:59
Patient with high blood pressure during this ER visit?: No
Condition: Fair
Discharge Problem:
Fracture of wrist
Instructions: Wrist Fracture
Prescriptions:
No Action
simvastatin 20 mg Tablet
20 mg PO HS
omeprazole 20 mg Capsule,Delayed Release(Dr/Ec)
20 mg PO DAILY
bupropion HCl 150 mg Tablet Extended Release 24 Hr
150 mg PO DAILY
citalopram 20 mg Tablet
30 mg PO HS
acetaminophen [Tylenol Extra Strength] 500 mg Tablet
1,000 mg PO Q6 7 Days Qty: 56 0RF
ibuprofen 600 mg Tablet
600 mg PO Q4HPRN PRN (Reason: mod pain) 7 Days Qty: 42 0RF
furosemide [Lasix] 20 mg tablet
20 mg PO DAILY Qty: 3 0RF
cephalexin 500 mg capsule
500 mg PO QID 7 Days Qty: 28 0RF
Referrals:
Myron Rodriguez MD [Active, Orthopedics] - Follow up in 5-7 days
Activity Restrictions/Additional Instructions:
Wear the splint and avoid getting it wet until you see the orthopedist. Take Tylenol every 6 hours, ibuprofen every 8 hours for pain. You can apply ice over top of the splint. Elevate your arm. Use the sling to help hold the arm up. Return for
any concerns
Interventions
Interventions:
*Risk Screen - Suicide Last Done: 02/15/25 08:37
*General Assessment Last Done: 02/15/25 09:14
*Neglect/Abuse Screening Last Done: 02/15/25 08:37
*ED- Fall Risk Assessment Last Done: 02/15/25 09:14
*ED COVID-19 Vaccine History Last Done: 02/15/25 09:14
*Nursing Disposition Last Done: 02/15/25 10:16
ED-Musculoskeletal Assessment Last Done: 02/15/25 09:15
ED- Neurological Assessment Last Done: 02/15/25 09:15
ED-Skin Assessment Last Done: 02/15/25 09:15
Discharge Date and Time
Discharge Date/Time: 02/15/25 10:17
Print Language: ESTONIAN
== END 2025-02-15 10:17 | disposition home or self-care (01) ==
LOC: EMR 08:27
PROVIDERS: EMERGENCY PHYSICIAN Emergency Medicine; FAMILY PHYSICIAN Internal Medicine
DX: S52.572A Other intraarticular fracture of lower end of left radius, initial encounter for closed fracture (principal); S52.612A Displaced fracture of left ulna styloid process, initial encounter for closed fracture; W01.0XXA Fall on same level from slipping, tripping and stumbling without subsequent striking against object, initial encounter; I10 Essential (primary) hypertension; E78.00 Pure hypercholesterolemia, unspecified; C56.9 Malignant neoplasm of unspecified ovary; Z79.60 Long term (current) use of unspecified immunomodulators and immunosuppressants
CPT/HCPCS: 99283; 25605; 73110

== ENCOUNTER → 2025-02-15 12:04 | Outpatient (REF) | payer OTHER, SELFPAY ==
[2025-02-15 12:09] LABS: Hematocrit 32.8 % (37.0-47.0); Hemoglobin 10.1 g/dL (12.0-16.0); Mean Corp Hgb Conc. 30.8 g/dL (33.0-37.0); Mean Corpuscular Volume 95.3 fL (81.0-99.0); Platelet Count 125 10^3/uL (130-400); Red Cell Dist. Width 28.0 % (11.5-14.5)
[2025-02-15 12:27] LABS: Urine Character Clear (Clear)
[2025-02-15 12:40] LABS: ALT (SGPT) 85 U/L (0-35); AST (SGOT) 82 U/L (14-36); Albumin 4.3 g/dl (3.5-5.0); Alkaline Phosphatase 543 U/L (38-126); Blood Urea Nitrogen 15 mg/dl (7-17); Calcium 9.6 mg/dl (8.4-10.2); Carbon Dioxide 26 mmol/L (22-30); Chloride 106 mmol/L (98-107); Glucose 188 mg/dl (70-99); LDH 384 U/L (120-246); Potassium 4.4 mmol/L (3.5-5.1); Sodium 139 mmol/L (135-145); Total Protein 7.0 g/dl (6.3-8.2); eGFR > 60.00
[2025-02-15 12:50] LABS: Urine Red Blood Cell 0-2 /HPF (0-2); Urine White Cell 21-25 /HPF (0-5)
== END ==
LOC: OIDL 12:04
PROVIDERS: ATTENDING PHYSICIAN Obstetrics & Gynecology Gynecologic Oncology
DX: C78.7 Secondary malignant neoplasm of liver and intrahepatic bile duct (principal); J91.0 Malignant pleural effusion; C57.01 Malignant neoplasm of right fallopian tube; R18.8 Other ascites; M25.552 Pain in left hip
CPT/HCPCS: 80053; 81003; 81015; 83615; 84100; 85025

== ENCOUNTER 2025-02-23 06:13 | Day surgery (SDC) | payer MEDICARE, OTHER, SELFPAY ==
--- NOTE | 2025-02-18 11:53 | PTCARENOTE ---
Pt called to let us know she will be doing her outpt testing on saturday. She is have a chemo infusion today and her oncologist recommended waiting until saturday.
[2025-02-23] VITALS (11 sets, daily range): BP systolic 98–146; BP diastolic 51–70; BMI 31.7
[2025-02-23] MEDS: TYLENOL 1000 MG PO (08:25)
[2025-02-23] MEDS: CELEBREX 200 MG PO (08:25)
[2025-02-23] MEDS: NORMOSOL-R/PLASMALYTE-A 1000 IV (08:32)
[2025-02-23 09:59] LABS: Hematocrit 26.7 % (37.0-47.0); Hemoglobin 8.5 g/dL (12.0-16.0); Mean Corp Hgb Conc. 31.8 g/dL (33.0-37.0); Mean Corpuscular Volume 96.7 fL (81.0-99.0)
[2025-02-23 10:47] LABS: Nucleated Red Blood Cells % 0 %; Platelet Count 71 10^3/uL (130-400)
[2025-02-23 10:48] LABS: Anisocytosis 1+; Hypochromasia 1+; Macrocytosis 1+; Normal RBC Morphology No
[2025-02-23] MEDS: DILAUDID 0.25 MG IV ×3 (11:10→11:41)
== END 2025-02-23 15:25 | disposition home or self-care (01) ==
LOC: SDS 06:13
PROVIDERS: Obstetrics & Gynecology Gynecologic Oncology; ATTENDING PHYSICIAN Orthopaedic Surgery; FAMILY PHYSICIAN Internal Medicine
DX: S52.572A Other intraarticular fracture of lower end of left radius, initial encounter for closed fracture (principal); W19.XXXA Unspecified fall, initial encounter
CPT/HCPCS: 25608; C1713; 85025

== ENCOUNTER → 2025-03-08 20:18 | Outpatient (REF) | payer MEDICARE, OTHER, SELFPAY | LOC: MRI 20:18 | PROVIDERS: ATTENDING PHYSICIAN Obstetrics & Gynecology Gynecologic Oncology | DX: C57.01 Malignant neoplasm of right fallopian tube (principal); R42 Dizziness and giddiness | CPT/HCPCS: 70553; A9575 ==

== ENCOUNTER → 2025-04-01 08:13 | Outpatient (REF) | payer OTHER, SELFPAY | LOC: RAD 08:13 | PROVIDERS: ATTENDING PHYSICIAN Obstetrics & Gynecology Gynecologic Oncology; FAMILY PHYSICIAN Internal Medicine | DX: C57.01 Malignant neoplasm of right fallopian tube (principal); C78.7 Secondary malignant neoplasm of liver and intrahepatic bile duct; J91.0 Malignant pleural effusion; R18.8 Other ascites; M25.552 Pain in left hip | CPT/HCPCS: 71260; 74177; Q9967 ==

== ENCOUNTER → 2025-04-06 11:36 | Outpatient (REF) | payer OTHER, SELFPAY ==
[2025-04-06 12:24] LABS: Hematocrit 31.7 % (37.0-47.0); Hemoglobin 10.2 g/dL (12.0-16.0); Mean Corp Hgb Conc. 32.2 g/dL (33.0-37.0); Mean Corpuscular Volume 104.3 fL (81.0-99.0); Nucleated Red Blood Cells % 0 %; Platelet Count 129 10^3/uL (130-400); Red Cell Dist. Width 20.8 % (11.5-14.5)
[2025-04-06 12:37] LABS: Urine Character Clear (Clear)
[2025-04-06 12:52] LABS: ALT (SGPT) 48 U/L (0-35); AST (SGOT) 58 U/L (14-36); Albumin 4.1 g/dl (3.5-5.0); Alkaline Phosphatase 498 U/L (38-126); Blood Urea Nitrogen 15 mg/dl (7-17); Calcium 9.6 mg/dl (8.4-10.2); Carbon Dioxide 26 mmol/L (22-30); Chloride 105 mmol/L (98-107); Glucose 136 mg/dl (70-99); LDH 359 U/L (120-246); Potassium 3.9 mmol/L (3.5-5.1); Sodium 140 mmol/L (135-145); Total Protein 7.0 g/dl (6.3-8.2); eGFR > 60.00
[2025-04-06 13:23] LABS: CA 125 566 U/mL (0-35)
== END ==
LOC: REG 11:36
PROVIDERS: ATTENDING PHYSICIAN Obstetrics & Gynecology Gynecologic Oncology
DX: C78.7 Secondary malignant neoplasm of liver and intrahepatic bile duct (principal); J91.0 Malignant pleural effusion; C57.01 Malignant neoplasm of right fallopian tube; R18.8 Other ascites; M25.552 Pain in left hip
CPT/HCPCS: 36415; 80053; 81003; 81015; 83615; 84100; 85025; 86304

== ENCOUNTER → 2025-04-26 11:59 | Outpatient (REF) | payer OTHER, SELFPAY ==
[2025-04-26 13:33] LABS: Hematocrit 30.1 % (37.0-47.0); Hemoglobin 9.8 g/dL (12.0-16.0); Mean Corp Hgb Conc. 32.6 g/dL (33.0-37.0); Mean Corpuscular Volume 108.7 fL (81.0-99.0); Nucleated Red Blood Cells % 0 %; Platelet Count 104 10^3/uL (130-400); Red Cell Dist. Width 17.9 % (11.5-14.5)
[2025-04-26 14:54] LABS: Urine Character Clear (Clear)
[2025-04-26 15:13] LABS: Urine Squamous Cell 16-20 /LPF (Few)
[2025-04-26 15:15] LABS: ALT (SGPT) 36 U/L (0-35); AST (SGOT) 47 U/L (14-36); Albumin 4.1 g/dl (3.5-5.0); Alkaline Phosphatase 400 U/L (38-126); Blood Urea Nitrogen 12 mg/dl (7-17); Calcium 8.8 mg/dl (8.4-10.2); Carbon Dioxide 26 mmol/L (22-30); Chloride 106 mmol/L (98-107); Glucose 91 mg/dl (70-99); Potassium 3.8 mmol/L (3.5-5.1); Sodium 140 mmol/L (135-145); Total Protein 6.7 g/dl (6.3-8.2); eGFR > 60.00
[2025-04-26 16:37] LABS: LDH 349 U/L (120-246)
[2025-04-26 18:35] LABS: CA 125 556 U/mL (0-35)
== END ==
LOC: REG 11:59
PROVIDERS: ATTENDING PHYSICIAN Obstetrics & Gynecology Gynecologic Oncology; FAMILY PHYSICIAN Internal Medicine
DX: C78.7 Secondary malignant neoplasm of liver and intrahepatic bile duct (principal); J91.0 Malignant pleural effusion; C57.01 Malignant neoplasm of right fallopian tube; R18.8 Other ascites; M25.552 Pain in left hip
CPT/HCPCS: 36415; 80053; 81003; 81015; 83615; 84100; 85025; 86304

== ENCOUNTER → 2025-04-30 14:16 | Outpatient (REF) | payer OTHER, SELFPAY ==
[2025-04-30 15:17] LABS: Urine Character Clear (Clear)
[2025-04-30 15:29] LABS: Urine White Cell 70-80 /HPF (0-5)
== END ==
LOC: REG 14:16
PROVIDERS: ATTENDING PHYSICIAN Obstetrics & Gynecology Gynecologic Oncology; FAMILY PHYSICIAN Internal Medicine
DX: C78.7 Secondary malignant neoplasm of liver and intrahepatic bile duct (principal); J91.0 Malignant pleural effusion; C57.01 Malignant neoplasm of right fallopian tube; R18.8 Other ascites; M25.552 Pain in left hip
CPT/HCPCS: 81003; 81015; 87077; 87086; 87186

== ENCOUNTER → 2025-05-13 11:07 | Outpatient (REF) | payer OTHER, SELFPAY | LOC: RAD 11:07 | PROVIDERS: ATTENDING PHYSICIAN Internal Medicine Hematology & Oncology; FAMILY PHYSICIAN Internal Medicine | DX: C57.01 Malignant neoplasm of right fallopian tube (principal); M25.552 Pain in left hip | CPT/HCPCS: 71260; 74177; Q9967 ==

== ENCOUNTER → 2025-05-25 07:05 | Outpatient (REF) | payer MEDICARE, OTHER, SELFPAY | LOC: RCS 07:05 | PROVIDERS: ATTENDING PHYSICIAN Internal Medicine Hematology & Oncology; FAMILY PHYSICIAN Internal Medicine | DX: C57.01 Malignant neoplasm of right fallopian tube (principal) | CPT/HCPCS: 93306; 93356 ==

== ENCOUNTER 2025-06-17 13:44 | Inpatient (IN) | payer MEDICARE, OTHER, SELFPAY ==
[2025-06-17] VITALS (9 sets, daily range): BP systolic 102–135; BP diastolic 58–94
[2025-06-17] MEDS: TORADOL 15 MG IV (09:23)
--- NOTE | 2025-06-17 09:42 | ED.GENMED ---
History of Present Illness
General
Chief Complaint: Abdominal Symptoms
Time Seen by Provider: 06/17/25 09:02
History of Present Illness
History of Present Illness:
70-year-old female with history of metastatic ovarian cancer on chemotherapy, last session 2 weeks ago, status post sigmoidectomy and radical hysterectomy with bilateral oophorectomy 11/2023 with metastatic spread to the liver presenting to the
emergency department for abdominal distention and discomfort. Patient reports symptoms started about 2 weeks ago after starting a new chemotherapeutic agent. She was concerned because this morning she started to have vaginal bleeding which she has
never had. Does note history of frequent UTIs. Recently saw the urologist who noted no abnormalities with the bladder. Denies additional history of abdominal surgeries. Denies fever or chest pain. Does note some difficulty breathing which she
feels is from the distention of her abdomen. Denies changes in stool. Denies additional acute medical complaints
Past History
Past History
ED Past Medical History: Cancer, HTN, Hypercholesterolemia and Psychiatric
ED Past Surgical History: Gynecological
Social History
Tobacco: Non-smoker
Phy Exam
Physical Exam
Physical Exam:
General: Well-appearing, no clinical signs of dehydration, nontoxic and in no acute distress
HEENT: protecting airway
Neck: appears supple
CV: Normal heart rate, regular rhythm
Resp: No accessory muscle use, no increased work of breathing, lungs clear to auscultation bilaterally
Abd: Moderate distention with generalized mild tenderness. No rebound or guarding.
Extremities: No deformities, no swelling
Neuro: alert, no focal neurologic deficit
: No active vaginal bleeding on speculum exam
Rectal: deferred
Psych: Normal affect
Skin: Intact
Course
Orders/Labs/Results
Orders:
Orders
06/17/25 09:17
CT Abd/Pel (IV only)-DH only Urgent
Comment:
Reason For Exam: abdominal distesion and pain, hx ovarian CA
06/17/25 09:18
Ketorolac [Toradol] 15 mg IV NOW STA
06/17/25 09:22
Amylase Urgent
Complete Blood Count/With Diff Urgent
Comprehensive Metabolic Panel Urgent
Lipase Urgent
PTT Urgent
Prothrombin Time Urgent
Urinalysis Reflex To Culture Urgent
Date Specimen was Collected: 06/17/25
Time Specimen was Collected: 09:20
Urine Microscopic Reflex Cult Urgent
Urine Culture Urgent
MARY Source: U
Specimen Description:
Date Specimen was Collected: 06/17/25
Time Specimen was Collected: 09:20
06/17/25 Lunch
Cholesterol Lowering
06/17/25 10:32
Add On- LAB Urgent
Tests Added?: CMP
06/17/25 12:46
Cefepime HCl [Maxipime] 2,000 mg IV NOW STA
06/17/25 13:09
Admit/Transfer Patient As Directed
Co-Sign Provider:
Level of Care: Inpatient admission
Assign to:: Medical/Surgical
Physician / Group: hospitalist
Diagnosis: malignant ascitis
Reason for Hospitalization: malignant ascitis
Expected length of stay greater than two midnights?: Yes
ELOS- Estimated Length of Stay in days: 3
I certify the patient meets the requirements for IP care: Yes
PRN Pain Medication Management As Directed
May give lesser potent ordered pain med per pt: Yes
preference::
Protocol:: Medication orders for pain may be administered in a
manner that supports deferring to patient preference
when the pt is:
- Requesting an ordered lesser potent pain medication.
Least to most potent pain medications are defined
as: acetaminophen < NSAID < tramadol < opioids
(morphine, oxycodone, hydromorphone).
- Requesting a lesser dose of the same medication IF
ORDERED.
- Requesting a less intrusive route of administration
if both routes are prescribed by the provider (PO <
IV).
06/17/25 13:11
Code Status As Directed
Resuscitation Status: Full Code
06/17/25 13:32
Sterile Water [Sterile Water For Injection] 20 ml .ROUTE .STK-MED
06/17/25 14:27
Acetaminophen [Tylenol] 1,000 mg PO Q6 PRN Pain
Bisacodyl [Dulcolax] 10 mg RECTAL [id number] PRN
Docusate W/Senna [Senokot-S] 1 tablet PO BIDPRN PRN
HYDROmorphone [Dilaudid] 0.025 mg IV Q6HPRN PRN
Ondansetron Injectable [Zofran] 4 mg IV Q6HPRN PRN
Piperacillin/Tazo 3.375 Gram [Zosyn] 3.375 gram in 50 ml IV Q8H
Polyethylene Glycol Powder [Miralax] 17 grams PO DAILYPRN PRN
ondansetron HCl 8 mg PO Q8HPRN PRN
06/17/25 14:27
[facility] CONSULT Routine
Consulting Provider: Wellington Butt
Was physician already notified: Yes
Procedure being ordered, including laterality if applicable: paracentesis
Acknowledgement that appropriate orders are entered: Yes
Body Fluid Albumin Routine
Fluid Source: Peritoneal (Ascites)
Body Fluid Amylase Routine
Fluid Source: Peritoneal (Ascites)
Body Fluid Cell Count Routine
What is the Body Fluid: peritoneal fluid
Comment: post procedure
Body Fluid LDH Routine
Fluid Source: Peritoneal (Ascites)
Body Fluid Protein Routine
Fluid Source: Peritoneal (Ascites)
Fluid Culture with Gram Stain Routine
MARY Source: Peritoneal Fluid
Specimen Description:
Comment: Post Procedure
Activity As Directed
Activity Level: Out of Bed-Early Mobility
Vital Signs As Directed
Frequency: Per unit guidelines
[facility] Cytology Routine
Source: Peritoneal Fluid
Clinical Impression: Malignant ascites
DX Deep Vein Thrombosis Video Routine
06/17/25 18:00
Enoxaparin Sodium [Lovenox] 40 mg SC QPM
06/17/25 22:00
Amlodipine [Norvasc] 5 mg PO HS
simvastatin 20 mg PO HS
06/18/25 06:00
Basic Metabolic Panel IN AM
Complete Blood Count/With Diff IN AM
06/18/25 08:00
Bupropion Regular Release [Wellbutrin Regular Release] 75 mg PO DAILY
Citalopram [Celexa] 30 mg PO DAILY
Cyanocobalamin [Vitamin B-12] 1,000 mcg PO DAILY
Metoprolol Xl [Toprol Xl] 50 mg PO DAILY
omeprazole 20 mg PO DAILY
Abnormal Lab Results
06/17/25
09:22
RBC 2.98 L 10^6/uL
(4.20-5.40)
Hgb 10.3 L g/dL
(12.0-16.0)
Hct 32.6 L %
(37.0-47.0)
MCV 109.4 H fL
(81.0-99.0)
MCH 34.6 H pg
(27.0-31.0)
MCHC 31.6 L g/dL
(33.0-37.0)
RDW 16.0 H %
(11.5-14.5)
Absolute Lymphs (auto) 0.8 L 10^3/uL
(1.2-3.4)
Lymphocytes % 13.5 L %
(20.5-51.1)
Monocytes % 10.3 H %
(1.7-9.3)
Chloride 110 H mmol/L
(98-107)
Glucose 131 H mg/dl
(70-99)
AST 47 H U/L
(14-36)
Alkaline Phosphatase 425 H U/L
(38-126)
Urine Ketones 1+ A
(Negative)
Ur Occult Blood Reflex 4+ A
(Negative)
Urine Nitrite (Reflex) Positive A
(Negative)
Urine Urobilinogen 2+ A
(Neg - 1+)
Leukocyte Esterase Rfl 3+ A
(Negative)
Urine RBC 11-15 A /HPF
(0-2)
Urine WBC (Reflex) 50-60 A /HPF
(0-5)
Urine Bacteria (Reflex) Many A
(Negative)
Urine Albumin (Reflex) 2+ A
(Neg - Trace)
06/17/25 09:22
06/17/25 09:22
Vital Signs
Initial and Last Documented VS:
Initial Vital Signs
Temp Pulse Resp Pulse Ox
98.6 F 119 18 95
06/17/25 08:31 06/17/25 08:31 06/17/25 08:31 06/17/25 08:31
Last Documented Vital Signs
Temp Pulse Resp BP Pulse Ox
98.1 F 119 18 134/92 94
06/17/25 14:27 06/17/25 14:27 06/17/25 14:27 06/17/25 14:27 06/17/25 14:27
MDM/Problems Addressed
MDM/Problems Addressed:
70-year-old female with history of metastatic ovarian cancer on chemotherapy, last session 2 weeks ago, status post sigmoidectomy and radical hysterectomy with bilateral oophorectomy 11/2023 with metastatic spread to the liver presenting for
abdominal distention and pain. Vital signs on arrival are significant for mild tachycardia.
On exam, patient is resting comfortably, no acute distress. However abnormal examination with moderate distention to the abdomen with some mild tenderness. Patient had also noted some vaginal bleeding this morning, however on exam, no active
vaginal bleeding. Given patient's prior history and presenting examination, concern for oncologic process as etiology of symptoms. Possible ascites with known liver metastasis. Symptoms started after new chemotherapy, so could be secondary from
chemotherapy. Plan for laboratory analysis and CT abdominal imaging. Toradol administered for pain.
12:40 - labs relatively unremarkable. Urine does show evidence of UTI. There is 4+ urine on patient's urinalysis which could be etiology of preceding episode of bleeding. Will start patient on cefepime. However on CT, noted to have large volume
of malignant ascites and severe hepatic metastatic disease. Suspect etiology of patient's distention and discomfort. Given volume of ascites, feel patient warrants admission for IR consultation and paracentesis. Oncology made aware. Plan for
admission
*Pulse Oximetry
SaO2: 94
Oxygen Mode of Delivery: Room air
Patient hypoxic: no
*Critical Care Note
Total Time (30-74mins, 75-104mins- exclusive of procedures): Not Applicable
ED Attending Note
-
Portions of this chart may have been created with voice recognition software.� Occasional wrong word or��sound alike� substitutions may have occurred due to the inherent limitations of voice recognition software.
Discharge Plan
Departure
Patient Disposition: Admit
Date of Disposition: 06/17/25
Time of Disposition: 12:53
Presentation/result/management discussed w/ accepting MD/DO: Hospitalist
Condition: Fair
Discharge Problem:
Abdominal ascites, Acute UTI
Interventions
Interventions:
*Risk Screen - Suicide Last Done: 06/17/25 09:34
*General Assessment Last Done: 06/17/25 09:34
*ED COVID-19 Vaccine History Last Done: 06/17/25 08:31
*Nursing Disposition Last Done: 06/17/25 14:10
XB-Umejst-Ewsdswkyrw Assessment Last Done: 06/17/25 09:34
Discharge Date and Time
Discharge Date/Time: 06/17/25 14:15
[2025-06-17 09:43] LABS: Hematocrit 32.6 % (37.0-47.0); Hemoglobin 10.3 g/dL (12.0-16.0); Mean Corp Hgb Conc. 31.6 g/dL (33.0-37.0); Mean Corpuscular Volume 109.4 fL (81.0-99.0); Nucleated Red Blood Cells % 0 %; Platelet Count 159 10^3/uL (130-400); Red Cell Dist. Width 16.0 % (11.5-14.5)
[2025-06-17 09:52] LABS: APTT 25.1 Sec (23.4-35.0); INR 1.03; PT 14.0 Sec (11.4-14.6)
[2025-06-17 10:01] LABS: Amylase 60 U/L (30-110); Lipase 42 U/L (23-300)
[2025-06-17 10:15] LABS: Urine Character Clear (Clear)
[2025-06-17 11:05] LABS: ALT (SGPT) 34 U/L (0-35); AST (SGOT) 47 U/L (14-36); Albumin 4.0 g/dl (3.5-5.0); Alkaline Phosphatase 425 U/L (38-126); Blood Urea Nitrogen 16 mg/dl (7-17); Calcium 9.4 mg/dl (8.4-10.2); Carbon Dioxide 24 mmol/L (22-30); Chloride 110 mmol/L (98-107); Glucose 131 mg/dl (70-99); Potassium 4.0 mmol/L (3.5-5.1); Sodium 140 mmol/L (135-145); Total Protein 6.8 g/dl (6.3-8.2); eGFR > 60.00
[2025-06-17 11:19] LABS: Urine Squamous Cell 26-30 /LPF (Few); Urine Urothelial Cell 0-2 /LPF (FEW)
[2025-06-17 11:20] LABS: Urine White Cell 50-60 /HPF (0-5)
--- NOTE | 2025-06-17 13:24 | HPS.HSE ---
Addendum entered and electronically signed by Sinan Crespo MD 06/17/25 19:54:
Discussed with patient's son and patient normally does not take metoprolol.
Patient has been tachycardic for past few weeks corresponding to when abdomen was getting distended.
EKG shows sinus tachycardia. Likely patient with sinus tachycardia from increasing abdominal discomfort and shortness of breath. PRN lopressor. Hopefully tachycardia should improve with paracentesis.
Addendum entered and electronically signed by Sinan Crespo MD 06/17/25 15:24:
This is an addendum to the H&P written by Melchor Diaz on 06/17/2025. �Patient seen and examined independently with resident.
70-year-old female past medical history of metastatic ovarian cancer on chemotherapy last received 2 weeks ago status post sigmoidectomy/radical hysterectomy with bilateral oophorectomy in November 2023 with metastases to liver, frequent UTIs prior ESBL
E coli UTI, HTN, GERD, anxiety, presenting with abdominal distention and discomfort after starting new chemotherapy agent. �This morning she started to have urinary bleeding. �Recently saw urologist who noted no bladder abnormalities. �Has some
shortness of breath.
Vital signs shows tachycardia up to 119. �On examination no bleeding noted on genitourinary examination.
Labs show stable anemia hemoglobin 10.3.
Urinalysis shows 50-60 WBC, positive nitrates, +3 leukocyte esterase. �+4 blood, 11-[address] abdomen pelvis shows large volume malignant ascites, severe hepatic metastatic disease causing left intrahepatic bile duct obstruction, severe intrahepatic biliary dilatation of the left lobe of the liver. �Multiple small peritoneal metastases.
�Small malignant right pleural effusion increased in size. �Multifocal pleural metastatic disease in the right hemithorax. �Interval increase in moderate pleural airspace consolidation of the right lower lobe possibly atelectasis versus pneumonia.
�Moderate splenomegaly secondary to portal hypertension.
Patient with symptomatic large-volume malignant ascites from metastatic ovarian cancer. �IR consulted for diagnostic and therapeutic paracentesis. �Fluid studies ordered. Oncology consulted.�
Patient with hematuria secondary to UTI. Urine culture, zosyn for UTI given prior ESBL E coli.
Tachycardia possibly from pain. Check EKG.��
Original Note:
Family Physician
-
Family Physician: NOT KNOW UNKNOWN - PT DOES
Chief Complaint
-
abdominal pain
History of Present Illness
70-year-old female with history of ovarian cancer metastatic to liver, started on new chemotherapy drug 2 weeks ago presented with epigastric abdominal pain, nausea, vomiting. Patient notes of increase in her abdominal size in the past week. She
also notes that this morning she had trouble breathing. She has been on chemotherpay treatment for 2 years. In the ED she is hemodynamically stable, on room air, mildly tachycardic. Other medical history hypertension, anxiety, GERD,
hypercholesterolemia.
Medical History
Past Medical History
Past Medical History: Reports GERD, HTN, Hypercholesterolemia and Other (ovarian cancer mets to liver)
Past Surgical History: Reports Appendectomy
Social History
Tobacco: Non-smoker
Alcohol: None
Drug: None
Employment: Retired
Family History
Family History: Not pertinent
Allergies / Home Medications
Allergies reflects when Allergies were last updated in [employer].
Home Medications with original date entered in [employer]
Allergy/Medication List:
Allergies
Allergy/AdvReac Type Severity Reaction Status Date / Time
No Known Allergies Allergy Verified 06/17/25 08:57
Home Medications
omeprazole 20 mg capsule,delayed release 20 mg PO DAILY Gastrointestinal Issue 09/05/23
simvastatin 20 mg tablet 20 mg PO HS High Cholesterol 09/05/23
bupropion HCl 75 mg tablet 75 mg PO DAILY Mental Health/Anxiety 02/18/25
metoprolol succinate 50 mg tablet,extended release 24 hr 50 mg PO DAILY Heart Disease/Condition 02/18/25
citalopram 20 mg tablet 30 mg PO DAILY Mental Health/Anxiety 02/23/25
cyanocobalamin (vitamin B-12) 1,000 mcg tablet 1,000 mcg PO DAILY Supplement 06/17/25
ondansetron HCl 8 mg tablet 8 mg PO Q8HPRN PRN NAUSEA 06/17/25
Review of Systems
-
History Source: Patient
A 12 point ROS was completed and negative except as noted: Yes
Physical Exam
Vital Signs
Vital Signs
Temp Pulse Resp BP Pulse Ox
98.6 F 110 25 132/88 94
06/17/25 08:31 06/17/25 11:32 06/17/25 11:32 06/17/25 11:32 06/17/25 11:32
Physical Exam
General: Comfortable and Conversant
HEENT: NormoCephalic and Anicteric
Respiratory: Clear
Cardiac: S1/S2 and Regular Rhythm
GI: Normal Bowel Sounds, Tender (mild epigastric ) and Distended (markedly ); No Soft (firm, no guarding/rigidity)
Musculoskeletal: No Edema
Skin: Warm and Dry
Neuro: AO x 3
Hematologic/Lymphatic: No Lymphadenopathy
Psych: Calm
Laboratory Results
-
06/17/25 09:22
06/17/25 09:22
Laboratory Results
PT 14.0 Sec (11.4-14.6) 06/17/25 09:22
INR 1.03 06/17/25 09:22
APTT 25.1 Sec (23.4-35.0) 06/17/25 09:22
Total Bilirubin 1.0 mg/dl (0.2-1.3) 06/17/25 09:22
AST 47 U/L (14-36) H 06/17/25 09:22
ALT 34 U/L (0-35) 06/17/25 09:22
Alkaline Phosphatase 425 U/L (38-126) H 06/17/25 09:22
Lipase 42 U/L (23-300) 06/17/25 09:22
Data Reviewed
-
CT Scan: Report Reviewed by me and Discussed with Physician
Lab Data: Labs Reviewed by me and Discussed with Physician
Impression/Plan
-
IMPRESSION:
Abdominal distention secondary to malignant ascites
Nausea
History of ovarian cancer metastatic to liver on chemotherapy
Acute UTI
History of anxiety/depression
History of hypertension
History of GERD
History of hyperlipidemia
PLAN:
#Abdominal distention secondary to malignant ascites
#Nausea
#History of ovarian cancer metastatic to liver
New chemotherapy treatment started 2 weeks ago
Hemodynamically stable
Admit to med/surg
Consult IRad for paracentesis
Oncologist aware
IV zofran prn for nausea
IV dilauded for pain control
#Acute UTI
Positive nitrates, pyuria
Previous microbiology cultures positive for ESBL with bob resistant cultures
Cefepime given in ED
Switch to IV Zosyn.
#History of anxiety/depression
Continue SSRI and Wellbutrin
#History of hypertension
Continue beta-dickson
#History of hyperlipidemia
Continue simvastatin
#History of GERD
Continue PPI
Full code
Lovenox
chol lowering
[2025-06-17] MEDS: MAXIPIME 2000 MG IV (13:35)
--- NOTE | 2025-06-17 14:41 | CM ---
Initial Assessment completed with pt in ED.
Pt is a 70yr old woman who was admitted with malignant ascites with abdominal symptoms and UTI. Hx of ovarian and liver CA and under chemo treatment.
At baseline, pt lives alone in a 1 level home with 0ste. Pt is indep at home/driving and does not have any equipment. Does walk with a walking stick at times.
Pt has no hx of SNF. Has used [facility] post surgery in the past.
PCP Dylan Plascencia
Pharm; [facility]
PLAN; home with no needs anticipated but watch for needs.
--- NOTE | 2025-06-17 15:00 | PTCARENOTE ---
Patient arrived to unit. Patient tolerated ambulating from stretcher to bed. Patient AAOx4, VSS HR in 120's. MD Crespo notified. new orders placed. call barba in reach. safety maintained. will continue to monitor.
[2025-06-17] MEDS: LOPRESSOR 5 MG IV (16:29)
[2025-06-17] MEDS: DILAUDID 0.25 MG IV (16:59)
[2025-06-17] MEDS: LOVENOX 40 MG SC (16:59)
[2025-06-17] MEDS: LIPITOR 10 MG PO (20:16)
[2025-06-17] MEDS: ZOSYN 100 IV (20:16)
[2025-06-17] MEDS: NORVASC 5 MG PO (20:17)
[2025-06-18] VITALS (10 sets, daily range): BP systolic 99–134; BP diastolic 55–81; BMI 30.2
[2025-06-18] MEDS: ZOSYN 100 IV ×4 (02:16→20:27)
[2025-06-18 08:05] LABS: Hematocrit 28.0 % (37.0-47.0); Hemoglobin 9.0 g/dL (12.0-16.0); Mean Corp Hgb Conc. 32.1 g/dL (33.0-37.0); Mean Corpuscular Volume 101.8 fL (81.0-99.0); Nucleated Red Blood Cells % 0 %; Platelet Count 148 10^3/uL (130-400); Red Cell Dist. Width 16.0 % (11.5-14.5)
[2025-06-18] MEDS: WELLBUTRIN REGULAR RELEASE 75 MG PO (08:14)
[2025-06-18] MEDS: PROTONIX 40 MG PO (08:14)
[2025-06-18] MEDS: VITAMIN B-12 1000 MCG PO (08:15)
[2025-06-18] MEDS: CELEXA 30 MG PO (08:15)
[2025-06-18 08:33] LABS: Blood Urea Nitrogen 16 mg/dl (7-17); Calcium 9.3 mg/dl (8.4-10.2); Carbon Dioxide 26 mmol/L (22-30); Chloride 106 mmol/L (98-107); Glucose 116 mg/dl (70-99); Potassium 4.0 mmol/L (3.5-5.1); Sodium 138 mmol/L (135-145); eGFR > 60.00
--- NOTE | 2025-06-18 09:17 | W.PN.HOSP.TC ---
Today's Communication/Plan
-
see PN
Assessment / Plan
Assessment / Plan
70yo F with PMHX of anxiety, gerd, hemorrhoids, HLD, ovarian CA s/p SOFI/BSO in November 2023 with omentectomy, currently on chemo - recent cycle ended appr 2 weeks ago started to develop abd distension around ssame time and worsened to the point that she
came to ED. Also noticed restal bleeding with BM started 2 days ago. 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 PAtient also had recent burning on urination
A/P:
#Abdominal distension 2/2 most likely maliganant ascutes due to metastatic ovarian CA with mets to liver, pleura
#Gastrohepatic metastatic lymph node
#Splenomegally
#Small malignant pleural effusion
Transaminitis and elevated alk.phos 2/2 liver mets
IRAD for paracenthesis
labs orderd
Oncology consult
#UTI
Zosyn pending Ucx
#moderate subpleural airspace consolidation in the right lower lobe
no overt respiratory symptoms
most likely atelectasis with shallow breathing due to abd distension
#Acute on chronic blood loss anemia 2/2 lower GIB
#Hx of hemorrhoids
#Portal colopathy
#SEVERE HEPATIC METASTATIC DISEASE causing left intrahepatic bile duct obstruction
Hold anticoagulation
GI consult
follow H&H - stable at the moment. additional anemia w/u as per hem/onc
#DJD
tylenol
#Anxiety D/O
#GERD
#tachycardia
cont home meds
DVT ppx SCDs
FUll code
I have spent at least 55min reviewing chart, test resutls, communication with consultants and providing direct patient care
Anticipated Discharge: > 48 hours
Subjective/Interval History
-
Date of Service: June 18, 2025
Objective Data
-
Labs:
Laboratory Results
06/18/25 06/18/25
07:16 07:17
WBC 6.0
Hgb 9.0 L
Hct 28.0 L
Plt Count 148
Sodium 138
Potassium 4.0
Chloride 106
Carbon Dioxide 26
BUN 16
Creatinine 0.6
Glucose 116 H
Calcium 9.3
Vital Signs:
Vital Signs
Temp Pulse Resp BP Pulse Ox
99.1 F 110 18 106/62 92
06/18/25 02:56 06/18/25 02:56 06/18/25 02:56 06/18/25 02:56 06/18/25 02:56
I&O
06/17/25 06/18/25 06/19/25
06:59 06:59 06:59
Intake Total 580 / 580
Balance 580 / 580
Review of Systems
-
History Source: Patient
All other systems: Reviewed and negative
Abdomen/GI: Reports Abdominal Pain and Bloody Stools
Physical Exam
-
General: No Apparent Distress
Respiratory: Clear to Auscultation
Cardiac: Regular Rhythm
GI: Nontender and Distended
Musculoskeletal: No Clubbing, No Cyanosis and No Edema
Skin: Warm
Neuro: Awake, Alert, Oriented and AO x 3
Psych: Calm
--- NOTE | 2025-06-18 09:23 | CON.GI ---
Addendum entered and electronically signed by David Muñiz MD 06/18/25 12:29:
I saw and examined the patient.
The DOCUMENT MANAGEMENT ANALYST or PA's note was reviewed and I agree with the note.
Comment: 70yo female hx metastatic ovarian cancer s/p neoadjuvant chemo followed by debulking in 2023 including sigmoid resection for metastatic disease involving colon. Currently on chemo and presents with abdominal distention and pain. Also
reported rectal bleeding in the bowl, dark red blood. She was seen by Dr Forbes in January for hemorrhoidal bleeding. Last colonoscopy in [address] Joyce[address]
REC:
Proceed with IR paracentesis (first tap) r/o SBP, check fluid cyto likely malignant ascites, fluid albumin
Anusol HC to treat hemorrhoids
If ongoing bleeding, can discuss flex sig v colonoscopy if necessary
Original Note:
Consultation
-
Date/Time Consultation Requested: 06/18/25919
Date/Time Consultation Performed: 06/18/25- 929
Requesting Provider: Tommy Johnson MD
Performing Provider: BEATA Baer, David Muñiz MD
Reason for Consultation: rectal bleeding
Medical History
Chief Complaint / HPI
Chief Complaint: rectal bleeding
History of Present Illness:
Pt is a 70yo with hx metastatic ovarian CA to liver, gastrohepatic mets to lymph nodes, with prior-- exp lap with radical tumor debulking with SOFI , b/l Salpingo- oophorectomy, b/l pelvic and para aortic lymph node dissection, omentectomy, LAR
with colorectal anastomosis with STONEWORKING SANDER malignancy with Dr. Ruffin and Dr. Rojelio hernández with high grade serous carcinoma in 11/2023. She is now on chemo with new chemo regiment 2 weeks ago with onset of epigastric pain, nausea, and distention. She
was also noted with shortness of breath and now noted with rectal bleeding, increased ascites, small malignant effusion, RLL consolidation, and UTI. Pt was seen by Dr. Forbes in January with concern for bleeding hemorrhoids with anoscopy with
enlarged internal hemorrhoids in Left lateral quadrant and discussed therapy for hemorrhoid vs if increased bleeding consider flex vs colonoscopy. Ct on admission with large volume malignant ascites, severe hepatic mets with left intrahepatic bile
duct obstruction and severe intrahepatic biliary dilatation. with multiple small peritoneal mets, small malignant effusion, pleural mets, atelectasis vs PNA, splenomegaly with portal HTN, prior SOFI/BSO, sigmoidectomy, appe, convex curvature of spine.
In review with patient she states she had bleeding in summer with Dr. Andrei tinoco then large volume of blood on 06/17 then on 06/18. She also admits to nausea, bloating with some LLQ pain. She denies vomiting, constipation or black stools.
Denies anticoagulation use. Pt reports hx colonoscopy with Dr. Baptiste in [facility] prior to surgery in 2023. hbg on admission 10.3, papi 1, AST 47, JENNIFER 34, ALk phos 425.
Past Medical History
Past Medical History: Cancer (metastatic ovarian CA on chemo ), GERD, HTN, Hypercholesterolemia, Psychiatric (anxiety ) and Other (hemorrhoids, prior ESBL UTI)
Past Surgical History: Appendectomy, Bowel Resection (11/2023-- exp lap with radical tumor debulking with SOFI , b/l Salpingo- oophorectomy, b/l pelvic and para aortic lymph node dissection, omentectomy, LAR with colorectal anastomosis with STONEWORKING SANDER
malignancy with Dr. Ruffin and Dr. Rojelio hernández with high grade serous carcinoma ) and Orthopedic (radial ORIF)
Social History
Tobacco: Non-Smoker
Alcohol: None
Drug: None
Living: Alone
Employment: Retired
Family History
Family History: Other
Allergies / Home Medications
Allergy/AdvReac Type Severity Reaction Status Date / Time
No Known Allergies Allergy Verified 06/17/25 08:57
�Medication �Instructions �Recorded
omeprazole 20 mg capsule,delayed 20 mg PO DAILY Gastrointestinal 09/05/23
release Issue
simvastatin 20 mg tablet 20 mg PO HS High Cholesterol 09/05/23
bupropion HCl 75 mg tablet 75 mg PO DAILY Mental 02/18/25
Health/Anxiety
metoprolol succinate 50 mg 50 mg PO DAILY Heart 02/18/25
tablet,extended release 24 hr Disease/Condition
citalopram 20 mg tablet 30 mg PO DAILY Mental 02/23/25
Health/Anxiety
cyanocobalamin (vitamin B-12) 1,000 mcg PO DAILY Supplement 06/17/25
1,000 mcg tablet
ondansetron HCl 8 mg tablet 8 mg PO Q8HPRN PRN NAUSEA 06/17/25
Review of Systems
-
History Source: Patient
Constitutional: Reports Weight Gain (with abdominal fluid )
EENT: Reports No Symptoms
Respiratory: Reports Trouble Breathing (on admission )
Abdomen/GI: Reports Abdominal Pain (mild with distention), Nausea and Bloody Stools
: Reports Bleeding
Musculoskeletal: Reports No Symptoms
Skin: Reports No Symptoms
Neurological: Reports Weakness
Endocrine: Reports No Symptoms
Hematologic/Lymphatic: Reports Bleeding
Vital Signs
Temp Pulse Resp BP Pulse Ox
98.3 F 117 18 134/81 93
06/18/25 07:15 06/18/25 07:15 06/18/25 07:15 06/18/25 07:15 06/18/25 07:15
Physical Exam
Exam
General: Other (pale appearing but conversant and cooperative in exam)
HEENT: Normocephalic and Anicteric
Respiratory: Clear
Cardiac: Other (tachy)
GI: Soft, Tender (mild diffuse ) and Distended
Rectal: Other (some dried blood on external exam but noted with brown trace + stool in rectal exam no external hemorrhoids )
Musculoskeletal: No Clubbing and No Cyanosis
Skin: Warm and Dry
Neuro: Awake, Alert and AO x 3
Psych: Calm
Results
WBC 6.0 10^3/uL (4.8-10.8) 06/18/25 07:16
Hgb 9.0 g/dL (12.0-16.0) L 06/18/25 07:16
Hct 28.0 % (37.0-47.0) L 06/18/25 07:16
MCV 101.8 fL (81.0-99.0) H 06/18/25 07:16
Plt Count 148 10^3/uL (130-400) 06/18/25 07:16
Absolute Neuts (auto) 3.8 10^3/uL (1.4-6.5) 06/18/25 07:16
PT 14.0 Sec (11.4-14.6) 06/17/25 09:22
INR 1.03 06/17/25 09:22
APTT 25.1 Sec (23.4-35.0) 06/17/25 09:22
Sodium 138 mmol/L (135-145) 06/18/25 07:17
Potassium 4.0 mmol/L (3.5-5.1) 06/18/25 07:17
Chloride 106 mmol/L (98-107) 06/18/25 07:17
Carbon Dioxide 26 mmol/L (22-30) 06/18/25 07:17
BUN 16 mg/dl (7-17) 06/18/25 07:17
Creatinine 0.6 mg/dL (0.6-1.0) 06/18/25 07:17
Calcium 9.3 mg/dl (8.4-10.2) 06/18/25 07:17
Total Bilirubin 1.0 mg/dl (0.2-1.3) 06/17/25 09:22
AST 47 U/L (14-36) H 06/17/25 09:22
ALT 34 U/L (0-35) 06/17/25 09:22
Alkaline Phosphatase 425 U/L (38-126) H 06/17/25 09:22
Amylase 60 U/L (30-110) 06/17/25 09:22
Lipase 42 U/L (23-300) 06/17/25 09:22
Diagnostic Image Results:
06/17/25 CT Abd/Pel (IV only)-DH only
1. LARGE VOLUME MALIGNANT ASCITES which has increased since 05/13/2025.
2. SEVERE HEPATIC METASTATIC DISEASE causing left intrahepatic bile duct obstruction.
3. Severe intrahepatic biliary dilatation in the left lobe of the liver.
4. Multiple small peritoneal metastases.
5. Small malignant right pleural effusion which has increased in size.
6. MULTIFOCAL PLEURAL METASTATIC DISEASE in the right hemithorax.
7. Interval increase in moderate subpleural airspace consolidation in the right lower lobe. Diagnostic possibilities are (1) atelectasis or (2) pneumonia (if there are signs/symptoms of infection).
8. Moderate splenomegaly secondary to portal hypertension.
9. Previous SOFI-BSO, sigmoidectomy, and appendectomy.
10. Moderate left convex curvature of the midlumbar spine.
Prior GI Procedures:
EGD: years ago
Colonoscopy: prior to surgery with Dr. Emile paulson
Assessment / Plan
-
Pt is a 70yo with hx metastatic ovarian CA to liver, gastrohepatic mets to lymph nodes, with prior-- exp lap with radical tumor debulking with SOFI , b/l Salpingo- oophorectomy, b/l pelvic and para aortic lymph node dissection, omentectomy, LAR
with colorectal anastomosis with STONEWORKING SANDER malignancy with Dr. Ruffin and Dr. Rojelio hernández with high grade serous carcinoma in 11/2023. she is now on chemo with new chemo regiment 2 weeks ago with onset of epigastric pain, nausea, and distention. She
was also noted with shortness of breath and now noted with rectal bleeding, increased ascites, small malignant effusion, RLL consolidation, and UTI. Pt was seen by Dr. Forbes in January with concern for bleeding hemorrhoids with anoscopy with
enlarged internal hemorrhoids in Left lateral quadrant and discussed therapy for hemorrhoid vs if increased bleeding consider flex vs colonoscopy. Ct on admission with large volume malignant ascites, severe hepatic mets with left intrahepatic bile
duct obstruction and severe intrahepatic biliary dilatation with multiple small peritoneal mets, small malignant effusion, pleural mets, atelectasis vs PNA, splenomegaly with portal HTN, prior SOFI/BSO, sigmoidectomy, appe, convex curvature of spine.
In review with patient she states she had bleeding in summer with Dr. Andrei tinoco then large volume of blood on 06/17 then on 06/18. She also admits to nausea, bloating with some LLQ pain. She denies vomiting, constipation or black stools.
Denies anticoagulation use. Pt reports hx colonoscopy with Dr. Baptiste in [facility] prior to surgery in 2023. hbg on admission 10.3, papi 1, AST 47, JENNIFER 34, ALk phos 425.
-rectal bleeding
-abdominal distention with large volume ascites on imaging
-metastatic ovarian Ca on current chemo and prior radial debulking surgery with SOFI , b/l Salpingo- oophorectomy, b/l pelvic and para aortic lymph node dissection, omentectomy, LAR with colorectal anastomosis due to concern for colonic involvement
in 2023
- severe intrahepatic biliary dilatation
-hx hemorrhoids
-Ecoli UTI with hx ESBL
PLAN:etiology of rectal bleeding relate to hemorrhoids vs mets vs other
abdominal pain may be related to ascites/UTI
plan for para today -- for cell count and culture and cytology
current rectal with some dried dark blood external exam and brown loose stool in rectal vault
trend hbg and stool record
will get last colonoscopy report from Dr. Bpatiste
if continued bleeding or drop in hbg will review with Dr. muñiz for flex
cont diet as tolerated
-
-
Thank you for consultation and allowing me to participate in the patient's care. Please call the [facility] physician during the after hours with any questions or concerns.
[2025-06-18 09:54] LABS: ALT (SGPT) 29 U/L (0-35); AST (SGOT) 38 U/L (14-36); Albumin 3.6 g/dl (3.5-5.0); Alkaline Phosphatase 377 U/L (38-126); Total Protein 6.2 g/dl (6.3-8.2)
[2025-06-18] MEDS: ANUSOL HC 25 MG RECTAL ×2 (10:39→20:48)
[2025-06-18] MEDS: DILAUDID 0.25 MG IV (10:46)
--- NOTE | 2025-06-18 12:39 | W.PN.UPDATE ---
Update Note
Progress Note Update
Pt just passed more bright red blood large volume-- diverticular bleeding within differential Check serial HBG and consider CTA if bleeding persists. Reviewed with nursing staff.
[2025-06-18 14:26] LABS: Hematocrit 26.6 % (37.0-47.0); Hemoglobin 8.6 g/dL (12.0-16.0)
[2025-06-18 14:40] LABS: Body Fluid Second Tech BGK
[2025-06-18] MEDS: FLEXBUMIN 100 IV (15:45)
[2025-06-18 18:21] LABS: Hematocrit 25.2 % (37.0-47.0); Hemoglobin 7.9 g/dL (12.0-16.0)
[2025-06-18] MEDS: TYLENOL 1000 MG PO (20:26)
[2025-06-18] MEDS: NORVASC 5 MG PO (20:27)
[2025-06-18] MEDS: LIPITOR 10 MG PO (20:27)
[2025-06-18] MEDS: PROTONIX IV 40 MG IV (20:28)
[2025-06-18] MEDS: NSS (PRESERVATIVE FREE) 10 ML IV (20:29)
--- NOTE | 2025-06-18 20:39 | PTCARENOTE ---
Addendum entered by Comfort Haywood RN 06/18/25 20:58:
Per report and upon assessment: Pt is self and uses call barba appropriately.
Original Note:
Pt AAOx3 during shift, bed alarm placed under bed, pt said 'please remove, it is terrible. it scare, it scare all night.' Pt education provided. Pt requested bed alarm to be removed post education. Bed alarm removed. Pt education continued to be
given.
[2025-06-19] VITALS (15 sets, daily range): BP systolic 86–118; BP diastolic 56–77; BMI 30.1
[2025-06-19] MEDS: ZOSYN 100 IV (01:54)
[2025-06-19 02:29] LABS: Hematocrit 23.3 % (37.0-47.0); Hemoglobin 7.7 g/dL (12.0-16.0)
[2025-06-19] MEDS: ANUSOL HC RECTAL ×3 (09:30→19:59)
[2025-06-19 09:49] LABS: Hematocrit 26.3 % (37.0-47.0); Hemoglobin 8.6 g/dL (12.0-16.0); Mean Corp Hgb Conc. 32.7 g/dL (33.0-37.0); Mean Corpuscular Volume 102.3 fL (81.0-99.0); Nucleated Red Blood Cells % 0 %; Platelet Count 151 10^3/uL (130-400); Red Cell Dist. Width 15.8 % (11.5-14.5)
[2025-06-19] MEDS: PROTONIX IV 40 MG IV ×2 (09:51→20:01)
[2025-06-19] MEDS: ZOSYN IV ×2 (09:51→10:40)
[2025-06-19] MEDS: NSS (PRESERVATIVE FREE) 10 ML IV ×2 (09:52→20:01)
[2025-06-19] MEDS: CELEXA 30 MG PO (09:52)
[2025-06-19] MEDS: VITAMIN B-12 1000 MCG PO (09:52)
[2025-06-19] MEDS: WELLBUTRIN REGULAR RELEASE 75 MG PO (09:54)
[2025-06-19 10:09] LABS: ALT (SGPT) 25 U/L (0-35); AST (SGOT) 41 U/L (14-36); Albumin 3.7 g/dl (3.5-5.0); Alkaline Phosphatase 308 U/L (38-126); Blood Urea Nitrogen 11 mg/dl (7-17); Calcium 8.9 mg/dl (8.4-10.2); Carbon Dioxide 26 mmol/L (22-30); Chloride 103 mmol/L (98-107); Estimated Creatinine Clearance 75 ml/min; Glucose 131 mg/dl (70-99); Potassium 3.7 mmol/L (3.5-5.1); Sodium 135 mmol/L (135-145); Total Protein 6.1 g/dl (6.3-8.2); eGFR > 60.00
--- NOTE | 2025-06-19 10:16 | W.PN.HOSP.TC ---
Today's Communication/Plan
-
bleeding subsiding - H&H q12h
switch to Ceftriaxone
Assessment / Plan
Assessment / Plan
70yo F with PMHX of anxiety, gerd, hemorrhoids, HLD, ovarian CA s/p SOFI/BSO in November 2023 with omentectomy, currently on chemo - recent cycle ended appr 2 weeks ago started to develop abd distension around ssame time and worsened to the point that she
came to ED. Also noticed restal bleeding with BM started 2 days ago. Had similar episode before, seen by her sales promoter and was told that this is due to hemorrhoids. PAtient also had recent burning on urination
A/P:
#Abdominal distension 2/2 most likely maliganant ascutes due to metastatic ovarian CA with mets to liver, pleura
#Gastrohepatic metastatic lymph node
#Splenomegaly
#Small malignant pleural effusion
Transaminitis and elevated alk.phos 2/2 liver mets
[facility] did paracentesis on 06/18/25, transudative fluid with 118 WBC and neg Cx, path not seen in process - ordered add-on
Oncology consult
#UTI
switch to Ceftriaxone with pansensitive E.coli, cefdinir upon d/c totaling 7 days
#moderate subpleural airspace consolidation in the right lower lobe
no overt respiratory symptoms
most likely atelectasis with shallow breathing due to abd distension
#Acute on chronic blood loss anemia 2/2 lower GIB
#Hx of hemorrhoids
#Portal colopathy
#SEVERE HEPATIC METASTATIC DISEASE causing left intrahepatic bile duct obstruction
Bleeding subsiding, if significant bleeding re-occur - CTA abd planned
Hold anticoagulation
GI consult: anusol
follow H&H additional anemia w/u
#DJD
tylenol
#Anxiety D/O
#GERD
#tachycardia
cont home meds
DVT ppx SCDs
FUll code
I have spent at least 51min reviewing chart, test resutls, communication with consultants and providing direct patient care
Anticipated Discharge: 24 - 48 hours
Subjective/Interval History
-
Date of Service: June 19, 2025
Objective Data
-
Labs:
Laboratory Results
06/19/25 06/19/25 06/19/25
02:01 04:00 06:00
WBC Cancelled
Hgb 7.7 L Cancelled Cancelled
Hct 23.3 L Cancelled Cancelled
Plt Count Cancelled
Sodium
Potassium
Chloride
Carbon Dioxide
BUN
Creatinine
Glucose
Calcium
Total Bilirubin
AST
ALT
Alkaline Phosphatase
06/19/25 06/19/25 06/19/25
09:31 12:00 21:00
WBC 4.9
Hgb 8.6 L Cancelled Pending
Hct 26.3 L Cancelled Pending
Plt Count 151
Sodium 135
Potassium 3.7
Chloride 103
Carbon Dioxide 26
BUN 11
Creatinine 0.6
Glucose 131 H
Calcium 8.9
Total Bilirubin 1.1
AST 41 H
ALT 25
Alkaline Phosphatase 308 H
Vital Signs:
Vital Signs
Temp Pulse Resp BP Pulse Ox
98.6 F 105 16 108/57 94
06/19/25 07:20 06/19/25 07:20 06/19/25 07:20 06/19/25 07:20 06/19/25 07:20
I&O
06/18/25 06/19/25 06/20/25
06:59 06:59 06:59
Intake Total 580 / 580 1740 / 1740
Balance 580 / 580 1740 / 1740
Review of Systems
-
History Source: Patient
All other systems: Reviewed and negative
Physical Exam
-
General: No Apparent Distress
HEENT: Normocephalic
Cardiac: Regular Rhythm
GI: Soft, Nontender and Distended
Genito-urinary: No Costovertebral Tender
Neuro: Awake, Alert, Oriented and AO x 3
Psych: Calm
[2025-06-19 10:45] LABS: Iron 49 ug/dl (37-170); Total Iron Binding Capacity 285 ug/dl (265-497)
--- NOTE | 2025-06-19 10:54 | W.PN.GI.CBS2 ---
Today's Communication / Plan
-
Bleeding subsiding.
Cont anusol
Hold off on flex/colonoscopy if stable. Hx mets to colon s/p resection
Feels better after paracentesis. Likely malignant ascites. Cyto pending
If otherwise stable, will sign off for now. Please call back if needed
Assessment / Plan
-
Pt is a 70yo with hx metastatic ovarian CA to liver, gastrohepatic mets to lymph nodes, with prior-- exp lap with radical tumor debulking with SOFI , b/l Salpingo- oophorectomy, b/l pelvic and para aortic lymph node dissection, omentectomy, LAR
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 Ruffin and Dr. Rojelio hernández with high grade serous carcinoma in 11/2023. she is now on chemo with new chemo regiment 2 weeks ago with onset of epigastric pain, nausea, and distention. She
was also noted with shortness of breath and now noted with rectal bleeding, increased ascites, small malignant effusion, RLL consolidation, and UTI. Pt was seen by Dr. Forbes in January with concern for bleeding hemorrhoids with anoscopy with
enlarged internal hemorrhoids in Left lateral quadrant and discussed therapy for hemorrhoid vs if increased bleeding consider flex vs colonoscopy. Ct on admission with large volume malignant ascites, severe hepatic mets with left intrahepatic bile
duct obstruction and severe intrahepatic biliary dilatation with multiple small peritoneal mets, small malignant effusion, pleural mets, atelectasis vs PNA, splenomegaly with portal HTN, prior SOFI/BSO, sigmoidectomy, appe, convex curvature of spine.
In review with patient she states she had bleeding in summer with Dr. Andrei tinoco then large volume of blood on 06/17 then on 06/18. She also admits to nausea, bloating with some LLQ pain. She denies vomiting, constipation or black stools.
Denies anticoagulation use. Pt reports hx colonoscopy with Dr. Baptiste in [facility] prior to surgery in 2023. hbg on admission 10.3, papi 1, AST 47, JENNIFER 34, ALk phos 425.
Impression:
-rectal bleeding - subsiding
-abdominal distention with large volume ascites on imaging, ilkely malignant ascites. Tap 4300cc 06/18. WBC 118, Alb 1.4, TP 2.8. SAAG 2.2
-metastatic ovarian Ca on current chemo and prior radial debulking surgery with SOFI , b/l Salpingo- oophorectomy, b/l pelvic and para aortic lymph node dissection, omentectomy, LAR with colorectal anastomosis due to concern for colonic involvement
in 2023
- severe intrahepatic biliary dilatation
-hx hemorrhoids
-Ecoli UTI with hx ESBL
Subjective
Subjective
Date of Service: June 19, 2025
abd feels better s/p paracentesis. Rectal bleeding subsiding.
Objective
Data Reviewed
Laboratory Data:
Laboratory Results
06/19/25 09:31
Laboratory Results
PT 14.0 Sec (11.4-14.6) 06/17/25 09:22
INR 1.03 06/17/25 09:22
APTT 25.1 Sec (23.4-35.0) 06/17/25 09:22
Total Bilirubin 1.1 mg/dl (0.2-1.3) 06/19/25 09:31
AST 41 U/L (14-36) H 06/19/25 09:31
ALT 25 U/L (0-35) 06/19/25 09:31
Alkaline Phosphatase 308 U/L (38-126) H 06/19/25 09:31
Amylase 60 U/L (30-110) 06/17/25 09:22
Lipase 42 U/L (23-300) 06/17/25 09:22
Vital Signs and I&O:
Vital Signs
Temp Pulse Resp BP Pulse Ox
98.6 F 105 16 108/57 94
06/19/25 07:20 06/19/25 07:20 06/19/25 07:20 06/19/25 07:20 06/19/25 07:20
I&O
06/18/25 06/19/25 06/20/25
06:59 06:59 06:59
Intake Total 580 / 580 1739
Balance 580 / 580 1739
Physical Exam
Physical Exam
GI: Soft, Distended and Non Tender
[2025-06-19 11:27] LABS: Ferritin 110.0 ng/ml (11.1-264.0)
[2025-06-19 11:59] LABS: Folate 10.0 ng/ml (2.76-20); Vitamin B12 687 pg/ml (239-931)
[2025-06-19] MEDS: STERILE WATER FOR INJECTION 10 ML IV (12:20)
[2025-06-19] MEDS: ROCEPHIN 1000 MG IV (12:20)
--- NOTE | 2025-06-19 12:25 | CON.ONC ---
Consultation
-
Date Consultation Requested: 06/19/25
Date Consultation Performed: 06/19/25
Requesting Provider: Tommy Johnson MD
Performing Provider: Yakelin Randall MD
Reason for Consultation: ovarian cancer
Impression
Impression
Ovarian cancer
Symptomatic large volume ascites
Nausea
Plan
Plan
Too soon to say whether Doxil will be effective for her.
Seems to be doing well now, could consider D/C home today if tolerating PO's.
Consideration could be given to resuming Avastin as outpt for control of ascites. Either way pt can be provided with Rx for PRN paracentesis that would allow her to call IR and schedule paracentesis herself as outpt.
Defer to Dr. Hinds re outpt managememt of ascites.
No objection to d/c home if tolerating POs.
Thank you for consult, will follow along with you while pt remains in hospital.
Patient History
History of Present Illness
70-year-old woman well-known to Dr. Hinds for history of ovarian cancer. Patient was diagnosed in August 2023 and treated with neoadjuvant CarboTaxol followed by surgery followed by adjuvant CarboTaxol. Soon after starting bevacizumab
maintenance, she developed liver metastases. Since then she has rapidly progressed through combination PARP inhibitor plus Avastin, mirvetuximab, and Jennifer S on clinical trial. She started Doxil on June 02. She last saw Dr. Hinds on
June 09 and had complaints of nausea and abdominal distention at that time. She was given a prescription for Zofran and encouraged to take it more regularly. Patient came to the [facility] ER yesterday with complaints of abdominal
distention and discomfort, and a 1 day history of hematuria. She underwent a CT scan that showed widely metastatic disease as previously as well as large volume ascites. She has undergone paracentesis for 4.3 L and now feels much better. At this
time, patient denies pain, constipation or uncontrolled nausea. She wants to go home.
Past-Medical/Surgical History
Past Medical History: Cancer (metastatic ovarian CA on chemo ), GERD, HTN, Hypercholesterolemia, Psychiatric (anxiety ) and Other (hemorrhoids, prior ESBL UTI)
Past Surgical History: Appendectomy, Bowel Resection (11/2023-- exp lap with radical tumor debulking with SOFI , b/l Salpingo- oophorectomy, b/l pelvic and para aortic lymph node dissection, omentectomy, LAR with colorectal anastomosis with POLE INSPECTOR
malignancy with Dr. Ruffin and Dr. Rojelio hernández with high grade serous carcinoma ) and Orthopedic (radial ORIF)
Social History
Tobacco: Non-Smoker
Alcohol: None
Drug: None
Living: Alone
Employment: Retired
Family History
Family History: Other
Patient Medication
�Medication �Instructions �Recorded �Confirmed �Last Taken �Type
omeprazole 20 mg capsule,delayed 20 mg PO DAILY Gastrointestinal 09/05/23 06/17/25 06/16/25 History
release Issue
simvastatin 20 mg tablet 20 mg PO HS High Cholesterol 09/05/23 06/17/25 06/16/25 History
bupropion HCl 75 mg tablet 75 mg PO DAILY Mental 02/18/25 06/17/25 06/16/25 History
Health/Anxiety
metoprolol succinate 50 mg 50 mg PO DAILY Heart 02/18/25 06/17/25 06/16/25 History
tablet,extended release 24 hr Disease/Condition
citalopram 20 mg tablet 30 mg PO DAILY Mental 02/23/25 06/17/25 06/16/25 History
Health/Anxiety
cyanocobalamin (vitamin B-12) 1,000 mcg PO DAILY Supplement 06/17/25 06/17/25 06/16/25 History
1,000 mcg tablet
ondansetron HCl 8 mg tablet 8 mg PO Q8HPRN PRN NAUSEA 06/17/25 06/17/25 Unknown History
Active Medications
Generic Name Dose Route Start Last Admin
Trade Name Freq PRN Reason Stop Dose Admin
Acetaminophen 1,000 mg 06/17/25 14:27 06/18/25 20:26
Acetaminophen 500 Mg Tablet PO 07/15/25 14:26 1,000 mg
Q6 PRN Administration
Pain
Amlodipine Besylate 5 mg 06/17/25 22:00 06/18/25 20:27
Amlodipine 5 Mg Tablet PO 07/15/25 21:59 5 mg
HS SLOAN Administration
Atorvastatin Calcium 10 mg 06/17/25 22:00 06/18/25 20:27
Atorvastatin (Lipitor) 10 Mg Tablet PO 07/15/25 21:59 10 mg
HS SLOAN Administration
Bisacodyl 10 mg 06/17/25 14:27
Bisacodyl 10 Mg Rectal Suppository RECTAL 07/15/25 14:26
[id number] PRN
constipation
Bupropion HCl 75 mg 06/18/25 08:00 06/19/25 09:54
Bupropion Regular Release 75 Mg Tablet PO 07/16/25 07:59 75 mg
DAILY SLOAN Administration
Ceftriaxone Sodium 1,000 mg 06/19/25 12:00 06/19/25 12:20
Ceftriaxone 1000 Mg / 10 Ml Vial IV 1,000 mg
Q24H SLOAN Administration
Citalopram Hydrobromide 30 mg 06/18/25 08:00 06/19/25 09:52
Citalopram 10 Mg Tablet PO 07/16/25 07:59 30 mg
DAILY SLOAN Administration
Cyanocobalamin (Vitamin B12) 1,000 mcg 06/18/25 08:00 06/19/25 09:52
Cyanocobalamin (Vitamin B-12) 500 Mcg Tablet PO 07/16/25 07:59 1,000 mcg
DAILY SLOAN Administration
Hydrocortisone Acetate 25 mg 06/18/25 11:00 06/19/25 09:52
Anusol Hc 25 Mg Rectal Suppository RECTAL 06/25/25 10:59 25 mg
BID SLOAN Administration
Hydromorphone HCl 0.25 mg 06/17/25 15:02 06/18/25 10:46
Hydromorphone 0.25 Mg/0.5 Ml Syringe IV 07/01/25 15:01 0.25 mg
Q6HPRN PRN Administration
moderate abdominal pain
Ferric Sodium Gluconate 110 mls @ 110 mls/hr 06/19/25 14:00
Complex 125 mg/ Sodium IV 06/23/25 14:59
Chloride DAILY@1400 SLOAN
Metoprolol Tartrate 5 mg 06/17/25 16:22 06/17/25 16:29
Metoprolol 5 Mg/5 Ml Vial IV 07/15/25 16:21 5 mg
Q6HPRN PRN Administration
HR>120
Ondansetron HCl 4 mg 06/17/25 14:27
Ondansetron 4 Mg/2 Ml Vial IV 07/15/25 14:26
Q6HPRN PRN
NAUSEA/VOMITING
Pantoprazole Sodium 40 mg 06/18/25 20:00 06/19/25 09:51
Pantoprazole Sodium 40 Mg/10 Ml Vial IV 07/16/25 19:59 40 mg
BID SLOAN Administration
Polyethylene Glycol 17 grams 06/17/25 14:27
Polyethylene Glycol Powder 17 Grams Packet PO 07/15/25 14:26
DAILYPRN PRN
constipation
Senna/Docusate Sodium 1 tablet 06/17/25 14:27
Docusate W/Senna (Elyssa-Colace) Tablet PO 07/15/25 14:26
BIDPRN PRN
constipation
Sodium Chloride 0 flush 06/17/25 15:00
Sodium Chloride 0.9% (Flush) Syringe IV 07/15/25 14:59
PER PROTOCOL SLOAN
Sodium Chloride 10 ml 06/18/25 20:00 06/19/25 09:52
Sodium Chloride 0.9% (Preservative Free) 10 Ml Vial IV 07/16/25 19:59 10 ml
BID SLOAN Administration
Sterile Water 10 ml 06/19/25 12:00 06/19/25 12:20
Sterile Water For Injection 10 Ml Vial IV 07/17/25 11:59 10 ml
Q24H SLOAN Administration
Review of Systems
-
Unable to obtain full review of systems at this time due to: Language Barrier
History Source: Patient and Records
All Other Systems: Reviewed and Negative
Constitutional: Reports No Symptoms
EENT: Reports No Symptoms
Respiratory: Reports No Symptoms
Cardiac: Reports No Symptoms
GI: Reports Nausea and Bloated (improved with paracentesis)
Breast: Reports No Symptoms
: Reports No Symptoms
Musculoskeletal: Reports No Symptoms
Skin: Reports No Symptoms
Neuro: Reports No Symptoms
Endocrine: Reports No Symptoms
Hematologic/Lymphatic: Reports No Symptoms
Allergy / Immunology: Reports No Symptoms
Physical Exam
-
General: No Apparent Distress and Appears Chronically Ill
HEENT: Moist Mucous Membranes and Other (appears pale); Negative Jaundice
Cardiology: Normal Sinus Rhythm, S1 and S2
Pulmonary: Clear
GI: Soft and Distended
Musculoskeletal: No Clubbing, No Cyanosis and No Edema
Extremities: No C/C/E
Neurology: Non Focal
Skin: Warm and Dry; Negative Rash
Hematologic / Lymphatic: No Lymphadenopathy
Psych: Calm
Labs
Lab Results
WBC 4.9 10^3/uL (4.8-10.8) 06/19/25 09:31
RBC 2.57 10^6/uL (4.20-5.40) L 06/19/25 09:31
Hgb Cancelled 06/19/25 12:00
Hct Cancelled 06/19/25 12:00
MCV 102.3 fL (81.0-99.0) H 06/19/25 09:31
MCH 33.5 pg (27.0-31.0) H 06/19/25 09:31
MCHC 32.7 g/dL (33.0-37.0) L 06/19/25:
RDW 15.8 % (11.5-14.5) H 06/19/25:
Plt Count 151 10^3/uL (130-400) 06/19/25:
MPV 10.4 fL (7.4-10.4) 06/19/25:
Abs Immat Gran (auto) 0.0 10^3/uL (0-0.05) 06/19/25
Absolute Neuts (auto) 3.3 10^3/uL (1.4-6.5) 06/19/25
Absolute Lymphs (auto) 0.9 10^3/uL (1.2-3.4) L 06/19/25
Absolute Monos (auto) 0.7 10^3/uL (0.1-0.6) H 06/19/25
Absolute Eos (auto) 0.1 10^3/uL (0-0.7) 06/19/25
Absolute Basos (auto) 0.0 10^3/uL (0-0.2) 06/19/25
Immature Gran % 0.2 % (0-0.5) 06/19/25
Neutrophils % 65.8 % (42.2-75.2) 06/19/25:
Lymphocytes % 18.4 % (20.5-51.1) L 06/19/25
Monocytes % 13.8 % (1.7-9.3) H 06/19/25
Eosinophils % 1.2 % (0-6) 06/19/25
Basophils % 0.6 % (0-2) 06/19/25
Creatinine 0.6 mg/dL (0.6-1.0) 06/19/25
Vital Signs
Vital Signs
Temp Pulse Resp BP Pulse Ox
98.5 F 114 16 112/77 97
06/19/25 11:05 06/19/25 11:05 06/19/25 11:05 06/19/25 11:05 06/19/25 11:05
[2025-06-19] MEDS: FERRLECIT 110 MG IV (14:21)
--- NOTE | 2025-06-19 15:00 | W.PN.UPDATE ---
Update Note
Progress Note Update
hypotensive and tachycardic with more large bloody BM with bright red blood
-1L wide opened NS
-hold antihypertensives
-2 units PRBC
-CTA abd/pelvis urgently
-IMU monitoring
-GI informed
[2025-06-19] MEDS: NSS 1000 IV (15:09)
[2025-06-19 15:14] LABS: Hematocrit 22.8 % (37.0-47.0); Hemoglobin 7.4 g/dL (12.0-16.0)
[2025-06-19] MEDS: TYLENOL 1000 MG PO (15:16)
--- NOTE | 2025-06-19 16:55 | PTCARENOTE ---
At 14:35, PCT alerted me to patient having large talha red blood bowel movement in bathroom. Patient pale, HR 130-140's on nurse monitoring, soft BP 80's/50's. Notified hospitalist and GI. 1L IVF stat infused, new R AC 20 placed for planned CTA.
Transferred patient to CTA myself for closer monitoring. Returned back to unit. 1 Unit of PRBC started. Transfer orders for IMU placed, to call for report.
--- NOTE | 2025-06-19 19:15 | PTCARENOTE ---
Received from 4th floor, IMU monitors placed- ST on tele 100s, BP 99/65 RR 20 Temp 98.8. 94% on RAIR. Pale on arrival, denies dizziness pain or lightheadedness. PRBC infusing, completed and currently 2nd unit infusing. Family at bedside.
[2025-06-19] MEDS: LIPITOR 10 MG PO (21:05)
--- NOTE | 2025-06-19 21:35 | PTCARENOTE ---
Assume care from AM RN. AAOX3, pleasant. General weakness ST in the monitor. Traces of BLLE edema. Lung sounds are diminished at the bases, Sao2 94 % RA. Abd round and distended. No c/o pain. Pt had a Large liquid bloody stool. Last unit of RBC was
transfused. Call barba within reach.
[2025-06-19 23:43] LABS: Hematocrit 25.6 % (37.0-47.0); Hemoglobin 8.7 g/dL (12.0-16.0)
[2025-06-20] VITALS (14 sets, daily range): BP systolic 99–116; BP diastolic 48–84; BMI 30.3
[2025-06-20] MEDS: ANUSOL HC 25 MG RECTAL (08:16)
[2025-06-20] MEDS: PROTONIX IV 40 MG IV ×2 (08:16→20:07)
[2025-06-20] MEDS: VITAMIN B-12 1000 MCG PO (08:16)
[2025-06-20] MEDS: WELLBUTRIN REGULAR RELEASE 75 MG PO (08:16)
[2025-06-20] MEDS: CELEXA 30 MG PO (08:16)
[2025-06-20] MEDS: NSS (PRESERVATIVE FREE) 10 ML IV ×2 (08:17→20:08)
[2025-06-20] MEDS: TYLENOL 1000 MG PO (08:20)
[2025-06-20 08:42] LABS: Hematocrit 29.7 % (37.0-47.0); Hemoglobin 10.2 g/dL (12.0-16.0)
--- NOTE | 2025-06-20 08:43 | W.PN.GI.CBS2 ---
Today's Communication / Plan
-
CTA negative
Hgb up to 10 after 2 units PRBC
Will prep for colonoscopy tomorrow
Assessment / Plan
-
Summary: 70yo with hx metastatic ovarian CA to liver, gastrohepatic mets to lymph nodes, with prior-- exp lap with radical tumor debulking with SOFI , b/l Salpingo- oophorectomy, b/l pelvic and para aortic lymph node dissection, omentectomy, LAR
with colorectal anastomosis with VICE PRESIDENT EDUCATION malignancy with Dr. Ruffin and Dr. Rojelio hernández with high grade serous carcinoma in 11/2023. she is now on chemo with new chemo regiment 2 weeks ago with onset of epigastric pain, nausea, and distention.
Presents w SOB and rectal bleeding, increased ascites, small malignant effusion, RLL consolidation, and UTI. Pt was seen by Dr. Forbes in January with concern for bleeding hemorrhoids with anoscopy with enlarged internal hemorrhoids in Left
lateral quadrant and discussed therapy for hemorrhoid vs if increased bleeding consider flex vs colonoscopy. Ct on admission with large volume malignant ascites, severe hepatic mets with left intrahepatic bile duct obstruction and severe
intrahepatic biliary dilatation with multiple small peritoneal mets, small malignant effusion, pleural mets, atelectasis vs PNA, splenomegaly with portal HTN, prior SOFI/BSO, sigmoidectomy, appe, convex curvature of spine. In review with patient
she states she had bleeding in summer with Dr. Andrei tinoco then large volume of blood on 06/17 then on 06/18. She also admits to nausea, bloating with some LLQ pain. She denies vomiting, constipation or black stools. Denies anticoagulation use.
Pt reports hx colonoscopy with Dr. Baptiste in [facility] prior to surgery in 2023. hbg on admission 10.3, papi 1, AST 47, JENNIFER 34, ALk phos 425.
06/19 CTA- negative. Decreased ascites
06/19- 2 units PRBCs
06/18 PARACENTESIS- 4300cc.
06/17 CT AP:
1. LARGE VOLUME MALIGNANT ASCITES which has increased since 05/13/2025.
2. SEVERE HEPATIC METASTATIC DISEASE causing left intrahepatic bile duct obstruction.
3. Severe intrahepatic biliary dilatation in the left lobe of the liver.
4. Multiple small peritoneal metastases.
5. Small malignant right pleural effusion which has increased in size.
6. MULTIFOCAL PLEURAL METASTATIC DISEASE in the right hemithorax.
7. Interval increase in moderate subpleural airspace consolidation in the right lower lobe. Diagnostic possibilities are (1) atelectasis or (2) pneumonia (if there are signs/symptoms of infection).
8. Moderate splenomegaly secondary to portal hypertension.
9. Previous SOFI-BSO, sigmoidectomy, and appendectomy.
10. Moderate left convex curvature of the midlumbar spine.
Impression:
Rectal bleeding. CTA negative 06/19
Sigmoid resection for metastatic involvement
Large volume likely malignant ascites. Tap 4300cc 06/18. WBC 118, Alb 1.4, TP 2.8. SAAG 2.2
Metastatic ovarian Ca on current chemo and prior radial debulking surgery with SOFI , b/l Salpingo- oophorectomy, b/l pelvic and para aortic lymph node dissection, omentectomy, LAR with colorectal anastomosis due to concern for colonic involvement in
2023
Severe intrahepatic biliary dilatation
Hemorrhoids
Ecoli UTI with hx ESBL
Subjective
Subjective
Date of Service: June 20, 2025
Had large dark red bloody BM yesterday with hypotension. None since then
Objective
Data Reviewed
Laboratory Data:
Laboratory Results
06/20/25 08:29
06/19/25 09:31
Laboratory Results
PT 14.0 Sec (11.4-14.6) 06/17/25 09:22
INR 1.03 06/17/25 09:22
APTT 25.1 Sec (23.4-35.0) 06/17/25 09:22
Total Bilirubin 1.1 mg/dl (0.2-1.3) 06/19/25 09:31
AST 41 U/L (14-36) H 06/19/25 09:31
ALT 25 U/L (0-35) 06/19/25 09:31
Alkaline Phosphatase 308 U/L (38-126) H 06/19/25 09:31
Amylase 60 U/L (30-110) 06/17/25 09:22
Lipase 42 U/L (23-300) 06/17/25 09:22
Vital Signs and I&O:
Vital Signs
Temp Pulse Resp BP Pulse Ox
99.0 F 115 23 105/68 93
06/20/25 03:36 06/20/25 04:00 06/20/25 04:00 06/20/25 04:00 06/20/25 04:00
I&O
06/19/25 06/20/25 06/21/25
06:59 06:59 06:59
Intake Total 1740 / 1740 1100 / 1100
Balance 1740 / 1740 1100 / 1100
Physical Exam
Physical Exam
GI: Soft, Non Distended and Non Tender
[2025-06-20] MEDS: ROCEPHIN 1000 MG IV (11:38)
[2025-06-20] MEDS: STERILE WATER FOR INJECTION 10 ML IV (11:38)
--- NOTE | 2025-06-20 11:39 | W.PN.HOSP.TC ---
Today's Communication/Plan
-
follow H&H
colonoscopy in AM
Assessment / Plan
Assessment / Plan
70yo F with PMHX of anxiety, gerd, hemorrhoids, HLD, ovarian CA s/p SOFI/BSO in November 2023 with omentectomy, currently on chemo - recent cycle ended appr 2 weeks ago started to develop abd distension around ssame time and worsened to the point that she
came to ED. Also noticed restal bleeding with BM started 2 days ago. Had similar episode before, seen by her sink cutter and was told that this is due to hemorrhoids. PAtient also had recent burning on urination
A/P:
#Abdominal distension 2/2 most likely malignant ascutes due to metastatic ovarian CA with mets to liver, pleura
#Gastrohepatic metastatic lymph node
#Splenomegaly
#Small malignant pleural effusion
Transaminitis and elevated alk.phos 2/2 liver mets
IRAD did paracentesis on 06/18/25, transudative fluid with 118 WBC and neg Cx, path not seen in process - ordered add-on
Oncology consult
#UTI
switch to Ceftriaxone with pansensitive E.coli, cefdinir upon d/c totaling 7 days
#moderate subpleural airspace consolidation in the right lower lobe
no overt respiratory symptoms
most likely atelectasis with shallow breathing due to abd distension
#Acute on chronic blood loss anemia 2/2 lower GIB
#Hx of hemorrhoids
#Portal colopathy
#SEVERE HEPATIC METASTATIC DISEASE causing left intrahepatic bile duct obstruction
Bleeding subsiding, if significant bleeding re-occur - CTA abd planned
Hold anticoagulation
GI consult: anusol, pending colonoscopy on 06/21/25
follow H&H additional anemia w/u
s/p 2 units PRBC on 06/19/25
#DJD
tylenol
#Anxiety D/O
#GERD
#tachycardia 2/2 recent chemo
cont home meds
DVT ppx SCDs
FUll code
I have spent at least 51min reviewing chart, test resutls, communication with consultants and providing direct patient care
Anticipated Discharge: > 48 hours
Subjective/Interval History
-
Date of Service: June 20, 2025
Objective Data
-
Labs:
Laboratory Results
06/19/25 06/20/25
23:31 08:29
Hgb 8.7 L 10.2 L
Hct 25.6 L 29.7 L
Vital Signs:
Vital Signs
Temp Pulse Resp BP Pulse Ox
99.0 F 112 18 114/84 95
06/20/25 03:36 06/20/25 10:00 06/20/25 10:00 06/20/25 09:27 06/20/25 10:00
I&O
06/19/25 06/20/25 06/21/25
06:59 06:59 06:59
Intake Total 1740 / 1740 1100 / 1100
Balance 1740 / 1740 1100 / 1100
Review of Systems
-
History Source: Patient
All other systems: Reviewed and negative
Physical Exam
-
General: No Apparent Distress
HEENT: Normocephalic
Cardiac: Regular Rhythm
GI: Soft, Nontender and Nondistended
Neuro: Awake, Alert, Oriented and AO x 3
Psych: Calm
[2025-06-20] MEDS: FERRLECIT 110 MG IV (13:26)
[2025-06-20] MEDS: NULYTELY SOLUTION 4 LITERS PO (16:53)
--- NOTE | 2025-06-20 17:05 | PTCARENOTE ---
Patient started bowel prep. Education provided regarding prep. Pt reports she has had one in the past and verbalized understanding.
[2025-06-20 17:40] LABS: Hematocrit 30.0 % (37.0-47.0); Hemoglobin 10.0 g/dL (12.0-16.0)
[2025-06-20] MEDS: LIPITOR 10 MG PO (20:08)
[2025-06-20] MEDS: ZOFRAN 4 MG IV (20:08)
[2025-06-20] MEDS: ANUSOL HC RECTAL (20:23)
[2025-06-21] VITALS (14 sets, daily range): BP systolic 20–124; BP diastolic 50–85; BMI 30.5
[2025-06-21] MEDS: EMLA CREAM 1 GRAM TOPICAL (02:41)
--- NOTE | 2025-06-21 02:55 | PTCARENOTE ---
Assumed care of Pt from sushila RN. Pt AAOx3 able to make needs known. Pt currently finishing prep for colonoscopy tomorrow. Prep finished around 2340. Pt stool starting to become clear around 0130. Pt requesting that her SQ port be used for blood
drawls. Pt stating she does not like being stuck with needles. Request relayed to BEATA and VAT. Education on infection Risks verse benefits discussed with Pt. Pt than requesting cream to numb the area for SQ port access. SECURITY INCIDENT RESPONSE ENGINEER made aware, cream
ordered. VAT made aware of cream administered time for appropriate placement time. Pt has no other complaints at this time. Call barba within reach.
[2025-06-21] MEDS: TYLENOL 1000 MG PO ×3 (03:08→17:22)
[2025-06-21 04:43] LABS: Hematocrit 25.0 % (37.0-47.0); Hemoglobin 8.4 g/dL (12.0-16.0)
--- NOTE | 2025-06-21 05:49 | PTCARENOTE ---
Pt SQ port now accessed, Pt appearing to tolerate well. Pt H&H resulting with a drop this AM. PHONE OPERATOR made aware. Pt having liquid stool, clear yellowish coloring at times specks of brown. Call barba within reach. Bed in lowest position.
--- NOTE | 2025-06-21 10:20 | W.PN.UPDATE ---
Update Note
Progress Note Update
had some epistaxis during procedure
will check platelets and coags
d/w hospitalist onc and CRS
--- NOTE | 2025-06-21 10:36 | PTCARENOTE ---
Patient back from GI lab. Diet resumed. VS stable. Sp02 96% room air. Pt. reports burning pain right thigh, requesting tylenol. Meal tray ordered for patient. Will continue to monitor.
[2025-06-21] MEDS: VITAMIN B-12 1000 MCG PO (10:39)
[2025-06-21] MEDS: NSS (PRESERVATIVE FREE) 10 ML IV (10:39)
[2025-06-21] MEDS: WELLBUTRIN REGULAR RELEASE 75 MG PO (10:39)
[2025-06-21] MEDS: CELEXA 30 MG PO (10:39)
[2025-06-21] MEDS: FLUSH (NSS) 1 FLUSH IV ×2 (10:40→12:21)
[2025-06-21] MEDS: PROTONIX IV 40 MG IV (10:40)
[2025-06-21] MEDS: ANUSOL HC RECTAL (10:41)
--- NOTE | 2025-06-21 11:17 | W.PN.HOSP.TC ---
Today's Communication/Plan
-
dc
Assessment / Plan
Assessment / Plan
70yo F with PMHX of anxiety, gerd, hemorrhoids, HLD, ovarian CA s/p SOFI/BSO in November 2023 with omentectomy, currently on chemo - recent cycle ended appr 2 weeks ago started to develop abd distension around same time and worsened to the point that she
came to ED. Also noticed restal bleeding with BM started 2 days ago. Had similar episode before, seen by her pricing actuary and was told that this is due to hemorrhoids. Patient also had recent burning on urination, pansensitive E.coli in urine,
cefdinir upon d/c totaling 7 days till 06/23/25. S/p colonoscopy on 06/21/25 with findings of edematous anastomosis concerning for CA recurrence. Oncology consult: referral to [facility] oncology. As agreed with GI and Oncology - appropriate for d/c
home
A/P:
#Abdominal distension 2/2 most likely malignant ascutes due to metastatic ovarian CA with mets to liver, pleura
#Gastrohepatic metastatic lymph node
#Splenomegaly
#Small malignant pleural effusion
Transaminitis and elevated alk.phos 2/2 liver mets
IRAD did paracentesis on 06/18/25, transudative fluid with 118 WBC and neg Cx, path not seen in process - ordered add-on
#UTI
switch to Ceftriaxone with pansensitive E.coli, cefdinir upon d/c totaling 7 days till 06/23/25
#moderate subpleural airspace consolidation in the right lower lobe
no overt respiratory symptoms
most likely atelectasis with shallow breathing due to abd distension
#Acute on chronic blood loss anemia 2/2 lower GIB
#Hx of hemorrhoids
#Portal colopathy
#SEVERE HEPATIC METASTATIC DISEASE causing left intrahepatic bile duct obstruction
Bleeding subsiding, if significant bleeding re-occur - CTA abd planned
Hold anticoagulation
GI consult: anusol, s/p colonoscopy on 06/21/25 with findings of edematous anastomosis concerning for CA recurrence. Oncology consult: referral to [facility] oncology
follow H&H additional anemia w/u
s/p 2 units PRBC on 06/19/25
#epistaxis
during colonoscopy
follow repeated coag panel (original is neg) and H&H
#DJD
tylenol
#Anxiety D/O
#GERD
#tachycardia 2/2 recent chemo
cont home meds
DVT ppx SCDs
FUll code
I have spent at least 36min reviewing chart, test resutls, communication with consultants and providing direct patient care
Anticipated Discharge: Within 24 hours
Subjective/Interval History
-
Date of Service: June 21, 2025
Objective Data
-
Labs:
Laboratory Results
06/21/25 06/21/25
04:11 10:08
WBC Pending
Hgb 8.4 L Pending
Hct 25.0 L Pending
Plt Count Pending
PT Pending
INR Pending
APTT Pending
Vital Signs:
Vital Signs
Temp Pulse Resp BP Pulse Ox
99 F 95 20 124/85 96
06/21/25 11:01 06/21/25 10:13 06/21/25 10:13 06/21/25 10:13 06/21/25 10:13
I&O
06/20/25 06/21/25 06/22/25
06:59 06:59 06:59
Intake Total 1100 / 1100 4430 / 4430 480 / 480
Balance 1100 / 1100 4430 / 4430 480 / 480
Review of Systems
-
History Source: Patient
All other systems: Reviewed and negative
Physical Exam
-
General: No Apparent Distress
HEENT: Normocephalic
Respiratory: Clear to Auscultation
GI: Soft, Nontender and Nondistended
Musculoskeletal: No Clubbing, No Cyanosis and No Edema
Neuro: Awake, Alert, Oriented and AO x 3
Psych: Calm
--- NOTE | 2025-06-21 12:12 | CON.CRS ---
Consultation
-
Date/Time Consultation Requested: 06/21/2025, 10:45
Date/Time Consultation Performed: 06/21/2025, 14:30
Requesting Provider: Karla Lewis MD
Performing Provider: Jose Ruffin MD
Reason for Consultation: concern for reoccurance
Medical History
-
Chief Complaint: rectal bleeding
History of Present Illness:
70-year-old female with a past medical history of ovarian cancer, status post sigmoidectomy by Dr. Ruffin as well as ex lap, radical tumor debulking including abdominal hysterectomy, bilateral salpingo-oophorectomy, bilateral pelvic and periaortic
lymph node dissection, infracolic and gastrocolic omentectomy, and resection of the right paracolic gutter by Dr. Serrato in November 2023 secondary to stage IIIc ovarian malignancy with mets to the liver, presents to [facility] complaining of abdominal
bloating and rectal bleeding. She was admitted on 06/17/2025 after presenting to the ER secondary to epigastric abdominal pain, nausea, and vomiting. She also noticed an increase in her abdominal size and had trouble breathing. She is currently
been on chemotherapy for the past 2 years. She underwent a CT of the abdomen and pelvis which showed large volume lignan ascites as well as severe hepatic metastatic disease causing left intrahepatic bile duct obstruction, multiple small peritoneal
metastasis, multifocal pleural metastatic disease in the right hemothorax, amongst other findings. She underwent a paracentesis 06/18/2025 which produced 4300 cc of fluid.
Subsequently she developed rectal bleeding in the toilet bowl that was dark in nature. She underwent a CT a of the abdomen and pelvis which showed no angiographic evidence for active GI bleeding. There was also interval decrease in the ascites
comparable with the history of paracentesis. Her hemoglobin dropped below 7.4 and she was transfused 2 units of packed red blood cells. Per patient, she stopped bleeding a few days ago. She had a normal bowel movement this morning. She was seen
in consultation by gastroenterology who performed a colonoscopy on her this morning. It was noted during the colonoscopy that there was evidence of a prior colorectal anastomosis in the rectum that was characterized by congestion and was difficult
to transverse. There was concern for a recurrence at the anastomosis. Biopsies were performed. Given this, we have been consulted for surgical opinion.
Past Medical History
Past Medical History: Cancer (metastatic ovarian CA on chemo), GERD, HTN, Hypercholesterolemia, Psychiatric (anxiety) and Other (h/o ESBL UTI)
Past Surgical History: Appendectomy, Bowel Resection (11/2023-- exp lap with radical tumor debulking with SOFI , b/l Salpingo- oophorectomy, b/l pelvic and para aortic lymph node dissection, omentectomy, LAR with colorectal anastomosis with [facility]
malignancy with Dr. Ruffin and Dr. Rojelio hernández with high grade serous carcinoma) and Orthopedic (ORIF)
Social History
Tobacco: Non-Smoker
Alcohol: None
Drug: None
Family History
Family History: Reviewed & Not Pertinent
Allergies / Home Medications
Allergy/AdvReac Type Severity Reaction Status Date / Time
No Known Allergies Allergy Verified 06/17/25 08:57
�Medication �Instructions �Recorded �Confirmed �Type
omeprazole 20 mg capsule,delayed 20 mg PO DAILY Gastrointestinal 09/05/23 06/17/25 History
release Issue
simvastatin 20 mg tablet 20 mg PO HS High Cholesterol 09/05/23 06/17/25 History
bupropion HCl 75 mg tablet 75 mg PO DAILY Mental 02/18/25 06/17/25 History
Health/Anxiety
metoprolol succinate 50 mg 50 mg PO DAILY Heart 02/18/25 06/17/25 History
tablet,extended release 24 hr Disease/Condition
citalopram 20 mg tablet 30 mg PO DAILY Mental 02/23/25 06/17/25 History
Health/Anxiety
cyanocobalamin (vitamin B-12) 1,000 mcg PO DAILY Supplement 06/17/25 06/17/25 History
1,000 mcg tablet
ondansetron HCl 8 mg tablet 8 mg PO Q8HPRN PRN NAUSEA 06/17/25 06/17/25 History
Review of Systems
-
History Source: Patient
Abdomen/GI: Nausea, Pain and Other (bloating)
: Bleeding (rectal)
A 10 point review of systems was completed, and was negative except as per HPI.
Physical Exam
Vital Signs
Temp 99 F 06/21/25 11:01
Pulse 95 06/21/25 10:13
Resp Rate 20 06/21/25 10:13
Blood pressure 124/85 06/21/25 10:13
SaO2 96 06/21/25 10:13
06/20/25 06/21/25 06/22/25
06:59 06:59 06:59
Actual Weight 70.488 kg 70.8 kg
Body Mass Index (BMI) 30.5
Lab Results / Allergies
06/19/25 09:31
WBC 4.9 10^3/uL (4.8-10.8) 06/19/25 09:31
Hgb 8.4 g/dL (12.0-16.0) L 06/21/25 04:11
Hct 25.0 % (37.0-47.0) L 06/21/25 04:11
Plt Count 151 10^3/uL (130-400) 06/19/25 09:31
Abs Immat Gran (auto) 0.0 10^3/uL (0-0.05) 06/19/25 09:31
Neutrophils % 65.8 % (42.2-75.2) 06/19/25 09:31
Allergy/AdvReac Type Severity Reaction Status Date / Time
No Known Allergies Allergy Verified 06/17/25 08:57
Physical Exam
General: Well Developed, Well Nourished and No Apparent Distress
GI: Soft, Non Tender and Non Distended
Skin: Warm and Dry
Neuro: AO x 3
Psych: Calm
Data Reviewed
-
CT Scan: Image Personally Visualized and interpreted, Report Reviewed by me and Discussed with Patient
Medical Tests (Nuc Med, Echo etc): Image Personally Visualized and interpreted (colonoscopy), Report Reviewed by me and Discussed with Patient
Labs: Labs Reviewed by me, Discussed with Physician and Discussed with Patient
Old Records: Reviewed
Assessment / Plan
-
Assessment: 70-year-old female with a past medical history of stage III ovarian cancer with metastasis to the liver, peritoneum, right hemothorax, status post debulking surgery Dr. Serrato and sigmoid anastomosis by Dr. Ruffin in 2023, presents to
[facility] complaining of abdominal distention and found to have large ascites status post paracentesis as well as rectal bleeding with congestion at the anastomosis on colonoscopy
Plan:
- No plans for urgent surgery at this time. Will await biopsies.
- Regular diet per GI
- Trend hemoglobin
- On ceftriaxone secondary to UTI
- Will follow
[2025-06-21] MEDS: ULTRAM 25 MG PO (12:19)
[2025-06-21] MEDS: ROCEPHIN 1000 MG IV (12:20)
[2025-06-21] MEDS: STERILE WATER FOR INJECTION 10 ML IV (12:20)
[2025-06-21 12:52] LABS: Hematocrit 29.5 % (37.0-47.0); Hemoglobin 9.5 g/dL (12.0-16.0); Mean Corp Hgb Conc. 32.2 g/dL (33.0-37.0); Mean Corpuscular Volume 96.7 fL (81.0-99.0); Nucleated Red Blood Cells % 0 %; Platelet Count 170 10^3/uL (130-400); Red Cell Dist. Width 19.1 % (11.5-14.5)
[2025-06-21 12:56] LABS: INR 1.19; PT 15.3 Sec (11.4-14.6)
[2025-06-21 12:57] LABS: APTT 30.8 Sec (23.4-35.0)
--- NOTE | 2025-06-21 14:24 | W.PN.ONC2 ---
Today's Communication / Plan
-
.
Impression
Impression
Ovarian cancer
Symptomatic large volume ascites
Nausea
rectal bleeding
anemia s/p 2U prbc 06/19. s/p ferrlicet x 2 doses. No B12 or folate deficiency
E.coli UTI
Plan
Plan
Too soon to say whether Doxil will be effective for her.
avoid Avastin with rectal bleeding.
PRN paracentesis that would allow her to call IR and schedule paracentesis herself as outpt.
abx per primary service
follow ascites cytology
follow bx of anastamosis site
Subjective/Objective
Subjective
afebrile, no hypoxia or hypotension
using tylenol and tramadol for pain management
denies overt bleeding today
Vital Signs:
Vital Signs
Temp Pulse Resp BP Pulse Ox
99 F 97 20 101/50 96
06/21/25 11:01 06/21/25 10:15 06/21/25 10:15 06/21/25 10:15 06/21/25 10:15
Lab Results:
Laboratory Data
WBC 6.4 10^3/uL (4.8-10.8) 06/21/25 12:22
Hgb 9.5 g/dL (12.0-16.0) L 06/21/25 12:22
Plt Count 170 10^3/uL (130-400) 06/21/25 12:22
PT 15.3 Sec (11.4-14.6) H 06/21/25 12:22
INR 1.19 06/21/25 12:22
APTT 30.8 Sec (23.4-35.0) 06/21/25 12:22
eGFR > 60.00 06/19/25 09:31
Physical Exam
HEENT: Moist Mucous Membranes; No Jaundice
Pulmonary: Other (unlabored)
Extremities: Pulses Present
--- NOTE | 2025-06-21 15:54 | W.DCSUMMARY ---
Addendum entered and electronically signed by Tommy Johnson MD 06/21/25 16:12:
R thigh pain, better on ambulation, most likely radiculopathy - will add Ultram PRN
Addendum entered and electronically signed by Tommy Johnson MD 06/21/25 16:00:
Since patient with stable Hgb and no antiplatelets or anticoagulants on home medications - low risk for rebleeding, therefore appropriate to continue self monitoring at home with close PCP follow up for H&H. Patient was informed on watching for
reoccurrence of bleeding, paleness, weakness, dizziness and come to ED if any re-appear. she verbalized understanding of the instructions
Original Note:
Discharge Summary
Discharge Data
Date of Admission: 06/17/25
Date of Discharge: 06/21/25
-
Pending Results: No
Hospital Course
70yo F with PMHX of anxiety, gerd, hemorrhoids, HLD, ovarian CA s/p SOFI/BSO in November 2023 with omentectomy, currently on chemo - recent cycle ended appr 2 weeks ago started to develop abd distension around same time and worsened to the point that she
came to ED. Also noticed restal bleeding with BM started 2 days ago. Had similar episode before, seen by her wind development director and was told that this is due to hemorrhoids. Patient also had recent burning on urination, pansensitive E.coli in urine,
cefdinir upon d/c totaling 7 days till 06/23/25. S/p colonoscopy on 06/21/25 with findings of edematous anastomosis concerning for CA recurrence. Oncology consult: referral to [facility]. As agreed with GI and Oncology - appropriate for d/c
home. No signs of bleeding as per ColorectalSx eval and as per Colonoscopy results. Unfortunately with poor prognosis and possibility of eventual LBO - GOC advised to be discussed with the patient
I have spent at least 36min reviewing chart, test results, communication with consultants and providing direct patient care
Patient was managed for:
#Abdominal distension 2/2 most likely malignant ascites due to metastatic ovarian CA with mets to liver, pleura
#Gastrohepatic metastatic lymph node
#Splenomegaly
#Small malignant pleural effusion
#UTI
#moderate subpleural airspace consolidation in the right lower lobe
#Acute on chronic blood loss anemia 2/2 lower GIB
#Hx of hemorrhoids
#Portal colopathy
#SEVERE HEPATIC METASTATIC DISEASE causing left intrahepatic bile duct obstruction
#epistaxis
#DJD
#Anxiety D/O
#GERD
#tachycardia 2/2 recent chemo
Discharge Plan
-
Patient Disposition: Home (Routine Discharge)
Discharge Diagnosis/Procedures: hematochezia
Diet: Regular
Blood Work: CBC with PCP in 2days
Referrals:
Meera Oneal MD [Non-Admitting Privileges, Gynecology] - in less than 1 week
Referral Note: concern for cancer recurrence at anastomosis
UNKNOWN - PT DOES,NOT KNOW [Family Provider]
Prescriptions:
New
cefdinir 300 mg capsule
300 mg PO BID Qty: 6 0RF
Continued
simvastatin 20 mg Tablet
20 mg PO HS
omeprazole 20 mg Capsule,Delayed Release(Dr/Ec)
20 mg PO DAILY
metoprolol succinate 50 mg Tablet Extended Release 24 Hr
50 mg PO DAILY
bupropion HCl 75 mg Tablet
75 mg PO DAILY
citalopram 20 mg Tablet
30 mg PO DAILY
ondansetron HCl 8 mg Tablet
8 mg PO Q8HPRN PRN (Reason: NAUSEA)
cyanocobalamin (vitamin B-12) 1,000 mcg Tablet
1,000 mcg PO DAILY
Discharge Orders:
Discharge Patient (As Directed); Ordered 06/21/25
Ordered By: Tommy Johnson
Discharge Date and Time
Print Language: TUVALUAN
[2025-06-21] MEDS: FERRLECIT 110 MG IV (16:04)
[2025-06-21] MEDS: FLUZONE HIGH-DOSE 2025-26 0.5 ML IM (16:05)
--- NOTE | 2025-06-21 16:15 | CM ---
F/U: Patient discharging home, no needs. IMM completed. PLAN: DC Home No Needs.
--- NOTE | 2025-06-21 16:31 | W.[place]-PDMP ---
[place]PD[place]
-
Checked the [place]- Prescription Drug Monitoring Program website, no red flags identified; safe to proceed with prescription.
--- NOTE | 2025-06-21 16:32 | PTCARENOTE ---
Patient to be discharged to home. SQ port de-accessed by VAT. Patient's son to take her home.
== END 2025-06-21 18:47 | disposition home or self-care (01) | DRG 754 ==
LOC: IMU 13:44
PROVIDERS: Internal Medicine Gastroenterology; Nurse Practitioner Adult Health; Radiology Diagnostic Radiology; Registered Nurse; Student in an Organized Health Care Education/Training Program; ADMITTING PHYSICIAN Hospitalist; ATTENDING PHYSICIAN Internal Medicine; CONSULT PHYSICIAN Internal Medicine Hematology & Oncology; CONSULT PHYSICIAN Specialist; EMERGENCY PHYSICIAN Student in an Organized Health Care Education/Training Program
PROC: 0W9G3ZZ Drainage of Peritoneal Cavity, Percutaneous Approach (ICD-10-PCS; 2025-06-18)
PROC: 30233N1 Transfusion of Nonautologous Red Blood Cells into Peripheral Vein, Percutaneous Approach (ICD-10-PCS; 2025-06-19)
PROC: 0DBM8ZX Excision of Descending Colon, Via Natural or Artificial Opening Endoscopic, Diagnostic (ICD-10-PCS; 2025-06-21)
DX: C56.9 Malignant neoplasm of unspecified ovary (principal); K83.1 Obstruction of bile duct; R18.0 Malignant ascites; C78.2 Secondary malignant neoplasm of pleura; C78.6 Secondary malignant neoplasm of retroperitoneum and peritoneum; C78.7 Secondary malignant neoplasm of liver and intrahepatic bile duct; C77.9 Secondary and unspecified malignant neoplasm of lymph node, unspecified; J91.0 Malignant pleural effusion; D62 Acute posthemorrhagic anemia; J98.11 Atelectasis; J94.2 Hemothorax; N39.0 Urinary tract infection, site not specified; M54.10 Radiculopathy, site unspecified; F41.9 Anxiety disorder, unspecified; K21.9 Gastro-esophageal reflux disease without esophagitis; K64.8 Other hemorrhoids; E78.00 Pure hypercholesterolemia, unspecified; M19.90 Unspecified osteoarthritis, unspecified site; R00.0 Tachycardia, unspecified; B96.20 Unspecified Escherichia coli [E. coli] as the cause of diseases classified elsewhere; R16.1 Splenomegaly, not elsewhere classified; R04.0 Epistaxis; T45.1X5A Adverse effect of antineoplastic and immunosuppressive drugs, initial encounter; Z79.899 Other long term (current) drug therapy; Z87.891 Personal history of nicotine dependence
CPT/HCPCS: 49083; 74174; 74177; 80053; 81003; 81015; 82042; 82150; 82248; 82607; 82728; 82746; 83540; 83550; 83615; 83690; 84157; 85014; 85018; 85025; 85610; 85730; 86850; 86900; 86901; 86920; 87015; 87070; 87077; 87086; 87186; 87205; 88112; 88305; 88342; 89051; 93005; 96374; 96375; 99284; J2916; P9016; P9047; Q9967

== ENCOUNTER → 2025-06-25 07:00 | Outpatient (REF) | payer MEDICARE, OTHER, SELFPAY ==
[2025-06-25 07:30] VITALS: BP 141/73; BP_SYST 118
[2025-06-25 08:09] VITALS: BP 119/68; BP_SYST 105
[2025-06-25 08:24] VITALS: BP 119/68
[2025-06-25 09:15] LABS: Body Fluid Second Tech RP
== END ==
LOC: RADI 07:00
PROVIDERS: ATTENDING PHYSICIAN Internal Medicine Hematology & Oncology; FAMILY PHYSICIAN Internal Medicine
DX: R18.8 Other ascites (principal); C56.9 Malignant neoplasm of unspecified ovary
CPT/HCPCS: 49083; 89051

== ENCOUNTER → 2025-06-30 12:46 | Outpatient (REF) | payer MEDICARE, OTHER, SELFPAY ==
[2025-06-30 13:24] VITALS: BP 128/74; BP_SYST 103
[2025-06-30 14:13] VITALS: BP 119/71; BP_SYST 97
[2025-06-30 14:30] VITALS: BP 119/71
[2025-06-30 15:08] LABS: Body Fluid Second Tech SS
== END ==
LOC: RADI 12:46
PROVIDERS: ATTENDING PHYSICIAN Internal Medicine Hematology & Oncology; FAMILY PHYSICIAN Internal Medicine
DX: R18.8 Other ascites (principal)
CPT/HCPCS: 49083; 89051

== ENCOUNTER → 2025-07-02 12:31 | Outpatient (REF) | payer MEDICARE, OTHER, SELFPAY ==
[2025-07-02 12:40] VITALS: BP 122/82; BP_SYST 112
[2025-07-02 13:25] VITALS: BP 104/86; BP_SYST 102
[2025-07-02 13:40] VITALS: BP 104/86
[2025-07-02 14:19] LABS: Body Fluid Second Tech EF
== END ==
LOC: RADI 12:31
PROVIDERS: ATTENDING PHYSICIAN Internal Medicine Hematology & Oncology; FAMILY PHYSICIAN Internal Medicine
DX: R18.8 Other ascites (principal)
CPT/HCPCS: 49083; 89051

== ENCOUNTER → 2025-07-06 09:34 | Outpatient (REF) | payer MEDICARE, OTHER, SELFPAY ==
[2025-07-06 09:50] VITALS: BP 121/72; BP_SYST 107
[2025-07-06 10:48] VITALS: BP 118/67; BP_SYST 94
[2025-07-06 10:58] VITALS: BP 118/67
[2025-07-06 13:30] LABS: Body Fluid Second Tech CMB
== END ==
LOC: RADI 09:34
PROVIDERS: ATTENDING PHYSICIAN Internal Medicine Hematology & Oncology; FAMILY PHYSICIAN Internal Medicine
DX: R18.8 Other ascites (principal)
CPT/HCPCS: 49083; 89051

== ENCOUNTER → 2025-07-12 10:08 | Outpatient (REF) | payer MEDICARE, OTHER, SELFPAY ==
[2025-07-12 10:24] VITALS: BP 115/72; BP_SYST 107
[2025-07-12 11:16] VITALS: BP 114/69; BP_SYST 97
[2025-07-12 11:26] VITALS: BP 114/69
[2025-07-12 11:59] LABS: Body Fluid Second Tech HB
[2025-07-12 13:19] LABS: Hematocrit 32.7 % (37.0-47.0); Hemoglobin 10.6 g/dL (12.0-16.0); Mean Corp Hgb Conc. 32.4 g/dL (33.0-37.0); Mean Corpuscular Volume 99.1 fL (81.0-99.0); Nucleated Red Blood Cells % 0 %; Platelet Count 111 10^3/uL (130-400); Red Cell Dist. Width 17.7 % (11.5-14.5)
[2025-07-12 14:05] LABS: ALT (SGPT) 109 U/L (0-35); AST (SGOT) 69 U/L (14-36); Albumin 3.1 g/dl (3.5-5.0); Alkaline Phosphatase 727 U/L (38-126); Blood Urea Nitrogen 30 mg/dl (7-17); Calcium 8.9 mg/dl (8.4-10.2); Carbon Dioxide 26 mmol/L (22-30); Chloride 102 mmol/L (98-107); Glucose 179 mg/dl (70-99); Potassium 4.7 mmol/L (3.5-5.1); Sodium 132 mmol/L (135-145); Total Protein 5.8 g/dl (6.3-8.2); eGFR > 60.00
[2025-07-12 19:27] LABS: CA 125 2180 U/mL (0-35)
== END ==
LOC: RADI 10:08
PROVIDERS: ATTENDING PHYSICIAN Internal Medicine Hematology & Oncology
DX: C57.01 Malignant neoplasm of right fallopian tube (principal); R18.0 Malignant ascites; C78.7 Secondary malignant neoplasm of liver and intrahepatic bile duct
CPT/HCPCS: 36415; 49083; 80053; 85025; 86304; 89051

== ENCOUNTER 2025-07-14 20:43 | Inpatient (IN) | payer MEDICARE, OTHER, SELFPAY ==
[2025-07-14] VITALS (10 sets, daily range): BP systolic 105–114; BP diastolic 63–73; BMI 25.5
[2025-07-14 15:28] LABS: Hematocrit 34.6 % (37.0-47.0); Hemoglobin 11.3 g/dL (12.0-16.0); Mean Corp Hgb Conc. 32.7 g/dL (33.0-37.0); Mean Corpuscular Volume 95.6 fL (81.0-99.0); Nucleated Red Blood Cells % 0 %; Platelet Count 142 10^3/uL (130-400); Red Cell Dist. Width 18.0 % (11.5-14.5)
[2025-07-14 15:46] LABS: ALT (SGPT) 87 U/L (0-35); AST (SGOT) 59 U/L (14-36); Albumin 3.2 g/dl (3.5-5.0); Alkaline Phosphatase 682 U/L (38-126); Blood Urea Nitrogen 31 mg/dl (7-17); Calcium 9.1 mg/dl (8.4-10.2); Carbon Dioxide 25 mmol/L (22-30); Chloride 101 mmol/L (98-107); Glucose 150 mg/dl (70-99); Potassium 4.2 mmol/L (3.5-5.1); Sodium 131 mmol/L (135-145); Total Protein 5.8 g/dl (6.3-8.2); eGFR > 60.00
--- NOTE | 2025-07-14 15:48 | PHANOTE ---
MED REC NOTE - PT WAS UNABLE TO CONFIRM MEDS, SPOKE WITH SON & WAS NOT ABLE TO CONFIRM MEDS, HAD A HOME MED LIST BUT IT WAS NOT UP TO DATE. CROSSED REFERENCED WITH PHARMACY & ECW TO THE BEST OF MY ABILITY
[2025-07-14 16:04] LABS: APTT 20.7 Sec (23.4-35.0)
[2025-07-14 18:24] LABS: COVID-19 Antigen Negative (Negative)
[2025-07-14 18:48] LABS: Urine Character Cloudy (Clear)
[2025-07-14 18:53] LABS: Ammonia 23 umol/L (9-30)
[2025-07-14 19:19] LABS: Urine Squamous Cell 0-2 /LPF (Few)
[2025-07-14 19:21] LABS: Urine Urothelial Cell 0-2 /LPF (FEW); Urine White Cell 16-20 /HPF (0-5)
--- NOTE | 2025-07-14 19:27 | ED.GENMED ---
History of Present Illness
General
Chief Complaint: Rectal Bleeding
Source: family (Son)
Exam Limitations: clinical condition
Time Seen by Provider: 07/14/25 16:54
History of Present Illness
History of Present Illness:
70-year-old female with a known history of ovarian CA/metastasis presents with rectal bleeding. After discussion with the son there is also been a mental status changes that happen in the last 24 hours. Yesterday patient was doing well fully alert
ambulatory. Patient is unable to add history. Attempted information through the medical interpreter with difficulties
Past History
Past History
ED Past Medical History: Cancer (Ovarian CA with mets), HTN, Hypercholesterolemia and Psychiatric
ED Past Surgical History: Gynecological
Social History
Tobacco: Non-smoker
Review of Systems
Review of Systems
Unable to obtain full review of systems at this time due to: due to acuity
Phy Exam
Physical Exam
Physical Exam:
GENERAL: Alert to name only.
EYE: Orbits normal.
NECK: Supple, no significant adenopathy.
ENT: Pharynx without erythema
CARDIAC: Regular rate and rhythm without any obvious murmurs.
LUNGS: Clear breath sounds,normal
ABDOMEN: Abdominal distention. Soft however. No rebound or guarding no mass or hernia. Stool is brown but does test positive
NEUROLOGICAL: Alert to name only. Grossly nonfocal.
SKIN: Warm and dry, no rash or lesion, no discoloration, skin intact.
MUSCULOSKELETAL: No edema,no deformity.Good color
PSYCH: Poor eye contact. Flat off
Course
Orders/Labs/Results
Orders:
Orders
07/14/25 15:10
Electrocardiogram (*1) Urgent
Reason for Study: Fatigue / Weakness
EKG- Treatment ONCE
07/14/25 15:18
Type And Crossmatch [Type+Screen] Urgent
Complete Blood Count/With Diff Urgent
Comprehensive Metabolic Panel Urgent
PTT Urgent
07/14/25 17:58
CT Head W/o Iv Contrast Urgent
Comment:
Reason For Exam: change in ms
07/14/25 18:01
Straight cath- Treatment ONCE
07/14/25 18:05
COVID-19 Antigen Urgent
Source: Nasal Swab
Influenza A+B Rapid Molecular Urgent
MARY Source: Nasal Swab
Specimen Description:
07/14/25 18:26
Ammonia Urgent
Urinalysis Reflex To Culture Urgent
Date Specimen was Collected: 07/14/25
Time Specimen was Collected: 18:05
Urine Microscopic Reflex Cult Urgent
Urine Culture Urgent
MARY Source: U
Specimen Description:
Date Specimen was Collected: 07/14/25
Time Specimen was Collected: 18:05
07/14/25 19:14
Cefepime HCl [Maxipime] 2,000 mg IV NOW STA
07/14/25 19:35
Ceribell [Rapid Point of Care EEG (ED/ICU ONLY)] Q1H
Indications for use:: Altered Mental Status
07/14/25 19:52
Blood Culture Q30M
MARY Source: Blood/Venous
Specimen Description:
Blood Culture Q30M
MARY Source: Blood/Venous
Specimen Description:
07/14/25 19:53
Admit/Transfer Patient As Directed
Co-Sign Provider:
Level of Care: Inpatient admission
Assign to:: Telemetry
Physician / Group: Cindy
Diagnosis: altered mental status
Reason for Telemetry: CVA/TIA
Date to Stop Telemetry: 07/17/25
Time to Stop Telemetry: 11:00
Reason for Hospitalization: UTI w/ toxic encephalopathy
Expected length of stay greater than two midnights?: Yes
ELOS- Estimated Length of Stay in days: 2
I certify the patient meets the requirements for IP care: Yes
PRN Pain Medication Management As Directed
May give lesser potent ordered pain med per pt: Yes
preference::
Protocol:: Medication orders for pain may be administered in a
manner that supports deferring to patient preference
when the pt is:
- Requesting an ordered lesser potent pain medication.
Least to most potent pain medications are defined
as: acetaminophen < NSAID < tramadol < opioids
(morphine, oxycodone, hydromorphone).
- Requesting a lesser dose of the same medication IF
ORDERED.
- Requesting a less intrusive route of administration
if both routes are prescribed by the provider (PO <
IV).
07/14/25 19:55
Code Status As Directed
Resuscitation Status: Do not resuscitate
Reached after discussion with pt or family/Healthcare POA: Yes
DNR Bracelet Application ONCE
07/14/25 21:30
Acetaminophen [Tylenol] 650 mg PO Q4HPRN PRN
Bisacodyl [Dulcolax] 10 mg RECTAL S21PPAL PRN
Docusate W/Senna [Senokot-S] 1 tablet PO BIDPRN
HYDROmorphone [Dilaudid] 0.5 mg IV Q4HPRN PRN
Ondansetron Injectable [Zofran] 4 mg IV Q6HPRN PRN
Oxycodone [Roxicodone] 5 mg PO Q8HPRN PRN
Polyethylene Glycol Powder [Miralax] 17 grams PO DAILYPRN
07/14/25 21:30
Activity As Directed
Activity Level: With Assistance
Neurological Checks As Directed
Frequency: q4h
Pneumatic Compression Sleeves As Directed
Type: Knee high
Vital Signs As Directed
Frequency: Per unit guidelines
DX Deep Vein Thrombosis Video Routine
07/14/25 22:00
Citalopram [Celexa] 30 mg PO HS
07/15/25 Breakfast
Full Liquids
At Your Request: Full Participation
07/15/25 07:14
Basic Metabolic Panel IN AM
Complete Blood Count/No Diff IN AM
Magnesium IN AM
07/15/25 08:00
Bupropion Regular Release [Wellbutrin Regular Release] 75 mg PO DAILY
Cefepime HCl [Maxipime] 2,000 mg IV Q12H
Dexamethasone [Decadron] 1 mg PO DAILY
Pantoprazole [Protonix] 40 mg PO DAILY
07/17/25 11:00
DC Protocol for Telemetry ONCE
Abnormal Lab Results
07/14/25 07/14/25
15:18 18:26
WBC 11.4 H 10^3/uL
(4.8-10.8)
RBC 3.62 L 10^6/uL
(4.20-5.40)
Hgb 11.3 L g/dL
(12.0-16.0)
Hct 34.6 L %
(37.0-47.0)
MCH 31.2 H pg
(27.0-31.0)
MCHC 32.7 L g/dL
(33.0-37.0)
RDW 18.0 H %
(11.5-14.5)
Abs Immat Gran (auto) 0.1 H 10^3/uL
(0-0.05)
Absolute Neuts (auto) 8.9 H 10^3/uL
(1.4-6.5)
Absolute Monos (auto) 1.1 H 10^3/uL
(0.1-0.6)
Neutrophils % 78.1 H %
(42.2-75.2)
Lymphocytes % 11.1 L %
(20.5-51.1)
Monocytes % 9.8 H %
(1.7-9.3)
APTT 20.7 L Sec
(23.4-35.0)
Sodium 131 L mmol/L
(135-145)
BUN 31 H mg/dl
(7-17)
Glucose 150 H mg/dl
(70-99)
AST 59 H U/L
(14-36)
ALT 87 H U/L
(0-35)
Alkaline Phosphatase 682 H U/L
(38-126)
Total Protein 5.8 L g/dl
(6.3-8.2)
Albumin 3.2 L g/dl
(3.5-5.0)
Ur Occult Blood Reflex 1+ A
(Negative)
Urine Nitrite (Reflex) Positive A
(Negative)
Urine Bilirubin 1+ A
(Negative)
Urine Urobilinogen 2+ A
(Neg - 1+)
Leukocyte Esterase Rfl 1+ A
(Negative)
Urine RBC 11-15 A /HPF
(0-2)
Urine WBC (Reflex) 16-20 A /HPF
(0-5)
Urine Bacteria (Reflex) Many A
(Negative)
Urine Albumin (Reflex) 2+ A
(Neg - Trace)
07/14/25 15:18
07/14/25 15:18
Vital Signs
Initial and Last Documented VS:
Initial Vital Signs
Temp Pulse Resp BP Pulse Ox
99.6 F 111 14 111/71 98
07/14/25 15:05 07/14/25 15:05 07/14/25 15:05 07/14/25 15:05 07/14/25 15:05
Last Documented Vital Signs
Temp Pulse Resp BP Pulse Ox
98.1 F 95 16 107/67 96
07/17/25 03:19 07/17/25 03:19 07/17/25 03:19 07/17/25 03:19 07/17/25 03:19
*Radiology
Radiology exam reviewed: radiology read reviewed (No acute findings)
*Pulse Oximetry
SaO2: 96
Oxygen Mode of Delivery: Room air
Patient hypoxic: no
*Stave Hewer Interpretation
Rate: normal
Interpretation: normal
Heart Rate: 94
Rhythm: sinus
*Critical Care Note
Total Time (30-74mins, 75-104mins- exclusive of procedures): Not Applicable
Update Note
Update Note:
Patient is encephalopathic with mental status change. Neck is supple. Doubt meningitis. CT scan is stable. Positive UTI. To consider atypical seizures. Will discuss with hospitalist. Family updated
ED Attending Note
-
Portions of this chart may have been created with voice recognition software.� Occasional wrong word or��sound alike� substitutions may have occurred due to the inherent limitations of voice recognition software.
Discharge Plan
Departure
Patient Disposition: Admit
Date of Disposition: 07/14/25
Time of Disposition: 19:16
Presentation/result/management discussed w/ accepting MD/DO: Hospitalist
Discharge Problem:
Change in mental status, Lower GI bleed, UTI, Known metastatic ovarian CA
Interventions
Interventions:
*ED COVID-19 Vaccine History Last Done: 07/14/25 15:05
*ED Influenza Vaccine History Last Done: 07/14/25 15:05
[facility] Fall Risk Assessment Tool Last Done: 07/14/25 15:03
*Risk Screen - Suicide (C-SSRS) Last Done: 07/14/25 15:05
*Nursing Disposition Last Done: 07/14/25 21:26
GF-Htesju-Ufvnnrldko Assessment Last Done: 07/14/25 16:13
ED- Cardiac Assessment Last Done: 07/14/25 16:13
ED- Pulmonary Assessment Last Done: 07/14/25 16:13
Discharge Date and Time
Discharge Date/Time: 07/14/25 21:27
--- NOTE | 2025-07-14 19:39 | HPS.HSE ---
Family Physician
-
Family Physician: NOT KNOW UNKNOWN - PT DOES
Chief Complaint
-
Altered mental status
History of Present Illness
This is a 70-year-old Pakistani-speaking female with past medical history significant for ovarian cancer with extensive hepatic metastasis, she is status post SOFI/BSO in November with omentectomy and received chemotherapy last about 3 weeks ago, has
progressive disease despite chemotherapy and has malignant ascites requiring approximately weekly paracenteses who presents to the emergency department for concern for altered mental status and bright red blood per rectum.
Patient had a episode of rectal bleeding about a month ago for which she was admitted to the hospital and had a colonoscopy. There were findings of edematous anastomosis concerning for cancer recurrence, and at that time she was completing a course
of cefdinir for urinary tract infection.
Family members reported that she was in usual state of health yesterday at the oncology clinic. She was also usual state of health when she arose this morning however caregiver reported that she was not normal self by the afternoon. Son reported
that she was slow to respond and could not recognize him in the afternoon. However at the time of my interview she was able to recognize his son and called his name. She was still slow to respond. She had ongoing generalized weakness for which
she was prescribed dexamethasone 1 mg p.o. daily. Otherwise she has had no other medication changes. She denies any fevers or chills. She denies any abdominal pain and nausea or vomiting. She denies any diarrhea.
Rectal examination showed brown stools with some streaks of blood which was bright red and a positive Hemoccult.
Blood pressure was 105/60 with a pulse rate of 100 and temperature of 99.6. She was satting 96% on room air. ECG showed sinus tach at a rate of 106. CT of the head was completely negative. UA is positive for nitrites and leukocyte esterase WBCs
and bacteria is pending. COVID test is negative. Flu test is negative. Blood cultures have been sent.
He had a white count of 11.4, hemoglobin of 11.3 and plate count of 142. Sodium was 131 otherwise electrolytes BUN and creatinine were all normal. LFTs abnormal but similar to prior.
She has a pending paracentesis on Saturday.
Medical History
Past Medical History
Past Medical History: Reports GERD, HTN, Hypercholesterolemia and Other (ovarian cancer mets to liver)
Past Surgical History: Reports Appendectomy
Social History
Tobacco: Non-smoker
Alcohol: None
Drug: None
Employment: Retired
Family History
Family History: Not pertinent
Allergies / Home Medications
Allergies reflects when Allergies were last updated in [facility].
Home Medications with original date entered in [facility]
Allergy/Medication List:
Allergies
Allergy/AdvReac Type Severity Reaction Status Date / Time
No Known Allergies Allergy Verified 06/17/25 08:57
Home Medications
omeprazole 20 mg capsule,delayed release 20 mg PO DAILY Gastrointestinal Issue 09/05/23
simvastatin 20 mg tablet 20 mg PO HS High Cholesterol 09/05/23
bupropion HCl 75 mg tablet 75 mg PO DAILY Mental Health/Anxiety 02/18/25
metoprolol succinate 50 mg tablet,extended release 24 hr 50 mg PO DAILY Heart Disease/Condition 02/18/25
citalopram 20 mg tablet 30 mg PO DAILY Mental Health/Anxiety 02/23/25
cyanocobalamin (vitamin B-12) 1,000 mcg tablet 1,000 mcg PO DAILY Supplement 06/17/25
ondansetron HCl 8 mg tablet 8 mg PO Q8HPRN PRN NAUSEA 06/17/25
Review of Systems
-
History Source: Family
Constitutional: Reports Fatigue
EENT: Reports No Symptoms
Respiratory: Reports No Symptoms
Cardiac: Reports No Symptoms
Abdomen/GI: Reports Bloody Stools
: Reports No Symptoms
Musculoskeletal: Reports No Symptoms
Skin: Reports No Symptoms
Neurological: Reports Weakness and Other (Confusion)
Endocrine: Reports No Symptoms
Hematologic/Lymphatic: Reports No Symptoms
Psych: Reports No Symptoms
Physical Exam
Vital Signs
Vital Signs
Temp Pulse Resp BP Pulse Ox
99.6 F 101 13 105/63 96
07/14/25 15:05 07/14/25 18:30 07/14/25 18:30 07/14/25 18:00 07/14/25 19:30
Physical Exam
General: Comfortable and Conversant
HEENT: NormoCephalic and Anicteric
Respiratory: Clear
Cardiac: S1/S2 and Regular Rhythm
GI: Non Tender, Normal Bowel Sounds and Distended (moderately); No Soft (firm, no guarding/rigidity)
Rectal: Brown and Hem Positive
Genito-urinary: Deferred by me
Musculoskeletal: No Clubbing, No Cyanosis and No Edema
Skin: Warm and Dry
Neuro: Awake, Alert, Oriented (Oriented to person and place but not to year), Cranial Nerves Intact, No Sensory Deficits and Slurred Speech (Delayed speech but not slurred); No Facial Droop
Hematologic/Lymphatic: No Lymphadenopathy
Psych: Calm
Laboratory Results
-
07/14/25 15:18
07/14/25 15:18
Laboratory Results
APTT 20.7 Sec (23.4-35.0) L 07/14/25 15:18
Total Bilirubin 0.8 mg/dl (0.2-1.3) 07/14/25 15:18
AST 59 U/L (14-36) H 07/14/25 15:18
ALT 87 U/L (0-35) H 07/14/25 15:18
Alkaline Phosphatase 682 U/L (38-126) H 07/14/25 15:18
Data Reviewed
-
CT Scan: Report Reviewed by me
Medical Tests (Nuc Med, Echo, EKG etc): Image Personally Visualized and interpreted
Lab Data: Labs Reviewed by me
Old Records: Reviewed
Impression/Plan
-
IMPRESSION:
70-year-old Pakistani-speaking female with past medical history significant for GERD, anxiety, hemorrhoids, ovarian cancer status postsurgery (SOFI/BSO, omentectomy) with extensive hepatic metastasis and complicated by recurrent malignant ascites
requiring multiple paracenteses, history of recent admission for rectal bleeding and for UTI, last chemotherapy about 3 weeks ago with progression of disease who now returns to the emergency department with episode of altered mental status and was
found to have some rectal bleeding with bright red blood per rectum on stooling. No diarrhea. No melena. He is not on any blood thinners. He is hemodynamically stable and hemoglobin is improved compared to prior.
PLAN:
Altered mental status -possible seizure versus stroke versus infectious encephalopathy
� Will admit to telemetry for now
� Ammonia levels are within the normal range
� Blood cultures, urine cultures
� Will start antibiotics with cefepime for presumed UTI
� Hold off on repeat paracentesis unless febrile or blood cultures returned positive
� Negative COVID, negative flu
� Will perform 1 hour EEG assessment
� MRI in a.m.
� Neurochecks every 6 hours
Rectal bleeding -recurrent episode of rectal bleeding. Hemodynamically stable, hemoglobin improving. She had a recent colonoscopy which had findings of a edematous anastomosis concerning for cancer recurrence. Unlikely patient will require second
colonoscopy patient does not want to undergo another colonoscopy. She also has history of hemorrhoids. She is not on any thinners but she does use NSAIDs as needed for pain
� Trend H&H for now
� Hold any anticoagulants
� Soft full liquid diet
� Gentle laxities for now
� Type and screen and consent
Urinary tract infection
� History of generally sensitive E. coli, given recent admissions will start with cefepime for now
Will continue bupropion and citalopram
DVT prophylaxis�SCDs for now
CODE STATUS�DNR
[2025-07-14] MEDS: MAXIPIME 2000 MG IV (19:53)
[2025-07-14] MEDS: CELEXA 30 MG PO (22:49)
--- NOTE | 2025-07-15 00:05 | PTCARENOTE ---
Pt AAOx1 to 2. Forgetful, confused of time. NIH (score of 1) was done as pt is being rule out of CVA. Per pt son, pt appears to have slight droop at the Lt mouth. Pt has a slow speech. General weakness. St in the monitor.+2 BLLE edema. Abd round,
full and distended. Lung sounds are diminished SaO2 95% RA. Skin is intact, sacrum blanchable red. Bed alarm in place. Will cont. w/ tx plan.
[2025-07-15] MEDS: ROXICODONE 5 MG PO (01:49)
[2025-07-15 06:00] VITALS: BMI 25.4
--- NOTE | 2025-07-15 06:38 | PTCARENOTE ---
pt hasnt void and pt was bladder scanned. Pt had >615. pt was placed on the commode and voided 200. Post void residual show 515 ml. pt was straight cath for 250. Pt appears to have ascites.
[2025-07-15 08:02] VITALS: BP 130/72
[2025-07-15 08:16] LABS: Blood Urea Nitrogen 30 mg/dl (7-17); Calcium 8.8 mg/dl (8.4-10.2); Carbon Dioxide 24 mmol/L (22-30); Chloride 102 mmol/L (98-107); Estimated Creatinine Clearance 64 ml/min; Glucose 159 mg/dl (70-99); Magnesium 2.0 mg/dl (1.6-2.3); Potassium 4.3 mmol/L (3.5-5.1); Sodium 131 mmol/L (135-145); eGFR > 60.00
--- NOTE | 2025-07-15 09:04 | W.PN.HOSP.TC ---
Today's Communication/Plan
-
broad scpectum Abx
Brain MRI
Assessment / Plan
Assessment / Plan
70yo F with PMHX of anxiety, gerd, hemorrhoids, HLD, ovarian CA s/p SOFI/BSO in November 2023 with omentectomy, currently on chemo, recurrent rectal bleed 2/2 concern for anastomotic CA recurrence, recurrent malignant ascites on regular paracentesis
developed worsening lethargy and confusion developed in short time span from AM to noon. Admitted with concern for UTI
A/P:
#Sepsis on admisson with Acute metabolic encephalopathy, leukocytosis, pyuria, concern for UTI
Watch for dysphagia, REGIONAL SALES TRAINER assessment
VAnco/Zosyn
MRSA screen
BCx pending
Follow Ucx
MRI brain with contrast due to hx of metastatic disease
Check TSH and Cortisol
Check XR chest
#Abdominal distension 2/2 most likely malignant ascutes due to metastatic ovarian CA with mets to liver, pleura
#Gastrohepatic metastatic lymph node
#Splenomegaly
Cont to follow as outpatient with established specialists
Abd non-tender
Plan for paracentesis and fluid Cx
Most recent visit to on 07/13/25 - Hospice recommended since will not tolerate or respond to more chemo with plan for permanent abd cath for home fluid drain
#Hx of rectal bleed 2/2 concern for anastomotic CA recurrence and hemorrhoids with chronic blood loss anemia
watch CBC
#Hyponatremia
recurrent
watch
#DJD
tylenol
#Thrombocytopenia
2/2 ca
#Anxiety D/O
#GERD
#tachycardia 2/2 recent chemo
cont home meds
DVT ppx SCDs
DNR/DNI
I have spent at least 56min reviewing chart, test results, communication with son and providing direct patient care
Anticipated Discharge: > 48 hours
Subjective/Interval History
-
Date of Service: July 15, 2025
Objective Data
-
Labs:
Laboratory Results
07/15/25
07:14
WBC Pending
Hgb Pending
Hct Pending
Plt Count Pending
Sodium 131 L
Potassium 4.3
Chloride 102
Carbon Dioxide 24
BUN 30 H
Creatinine 0.7
Glucose 159 H
Calcium 8.8
Vital Signs:
Vital Signs
Temp Pulse Resp BP Pulse Ox
98.7 F 108 16 130/72 96
07/15/25 08:02 07/15/25 08:02 07/15/25 08:02 07/15/25 08:02 07/15/25 08:02
I&O
07/14/25 07/15/25 07/16/25
06:59 06:59 06:59
Intake Total 240 / 240
Output Total 450 / 450
Balance -210 / -210
Review of Systems
-
Unable to obtain full review of systems at this time due to: Acuity
History Source: Patient
Constitutional: Reports Fatigue
Physical Exam
-
General: No Apparent Distress
HEENT: Normocephalic
Respiratory: Clear to Auscultation
Cardiac: Regular Rhythm
GI: Soft, Nontender and Distended
Musculoskeletal: No Clubbing, No Cyanosis and No Edema
Neuro: Awake, Alert and Sedated
Psych: Calm
[2025-07-15 09:05] LABS: Hematocrit 32.1 % (37.0-47.0); Hemoglobin 10.8 g/dL (12.0-16.0); Mean Corp Hgb Conc. 33.6 g/dL (33.0-37.0); Mean Corpuscular Volume 97.3 fL (81.0-99.0); Platelet Count 112 10^3/uL (130-400); Red Cell Dist. Width 17.9 % (11.5-14.5)
--- NOTE | 2025-07-15 09:10 | PHA.VAN.IN ---
Assessment
- Assessment
Renal Function: Appears similar to baseline
Maximum Temperature: 99.6
Minimum Temperature: 98
Concomitant Antimicrobials: Piperacillin-tazobactam
AUC Dosing Plan
- Dosing Variables
Dosing Weight (kg): 67.4
Dosing CrCl (ml/min): 64
Vd coefficient (L/kg): 0.7
- Empiric Dosing
Initial / Loading Dose: Vanc 1500mg
Maintenance Regimen: Vanc 1250mg IV q24H beginning 07/16
Estimated AUC (mcg*h/mL): 480
Estimated Peak (mcg*h/mL): 35.4
Estimated Trough (mcg/ml): 9.7
Estimated Half Life (H): 12
- Monitoring
No levels ordered at this time: Consider levels after 07/18 dose
Pharmacokinetics Vancomycin I
- -
Patient Age: 70
Patient Sex: Female
Vancomycin Day #: 1
Indication: Other
Requesting Provider: Elizabeth
Height / Weight:
Height 5 ft 4 in
Actual Weight 67.358 kg
IBW in k.7
Adjusted BW in k.8
- Vital Signs / Lab Results
Temp Pulse Resp BP Pulse Ox
98.7 F 108 16 130/72 96
07/15/25 08:02 07/15/25 08:02 07/15/25 08:02 07/15/25 08:02 07/15/25 08:02
Lab Results - Hematology
07/14/25 07/15/25
15:18 07:14
WBC 11.4 H 9.6
Lab Results - Chemistry
07/14/25 07/15/25
15:18 07:14
BUN 31 H 30 H
Creatinine 0.7 0.7
Estimated Creat Clear 64
Albumin 3.2 L
Lab Results - Urine
07/14/25
18:26
Urine Nitrite (Reflex) Positive A
Leukocyte Esterase Rfl 1+ A
Urine WBC (Reflex) 16-20 A
Ur Squamous Epith Cells 0-2
Urine Bacteria (Reflex) Many A
Microbiology Results
07/14/25 18:05 Influenza Types A & B (BEATRIZ) - Final
Nasal Swab Negative for Influenza A & B, NAAT
Negative results must be combined with clinical observations
and patient history.
Nucleic Acid Amplification test (NAAT)performed on the
[employer] platform.
[2025-07-15] MEDS: PROTONIX 40 MG PO (09:37)
[2025-07-15] MEDS: DECADRON 1 MG PO (09:37)
[2025-07-15] MEDS: WELLBUTRIN REGULAR RELEASE 75 MG PO (09:37)
[2025-07-15] MEDS: VANCOCIN 530 MG IV (09:38)
[2025-07-15] MEDS: ZOSYN 50 IV ×3 (09:40→21:02)
[2025-07-15] MEDS: D5LR 1000 IV (09:40)
--- NOTE | 2025-07-15 09:47 | W.RAPID.EEG ---
Rapid EEG
-
Procedure Date: 07/14/25
Patient Status: Inpatient
Results:
Procedure Date: 07/14/2025
Patient status: Inpatient
Impression:
No evidence of status epilepticus
Recording Information:
Recording 1:�[email or web address]
Start Time:
2025-07-14 19:45:09
End Time:
2025-07-14 20:50:47
Diagnostic Recording Time: 66�Minutes
Recording Technique
This EEG was obtained using a 10 lead, 8 channel system positioned circumferentially without any parasagittal coverage (rapid EEG).
Computer selected EEG is reviewed as well as background features and all clinically significant events.
Clarity algorithm utilized and implemented to provide analysis of underlying activity and seizure detection used to facilitate reading. ICD-10 Code BQ50W97
Clinical History
BHARAT DE LA TORRE is a 70 year old patient with confusion, and the patient had EEG to screen for non-convulsive status epilepticus.
--- NOTE | 2025-07-15 11:29 | PTOTSP ---
CONCRETE BUILDING ASSEMBLER Evaluations
Patient has acute on chronic dysphagia risk factors (i.e., sepsis, UTI, AMS - r/o stroke vs seizure vs encephalopathy, abdominal distension w/ concern for malignant ascites, dependence for assist with feeding; PMH ovarian cancer with extensive
hepatic metastasis, GERD). Signs concerning for mild oral dysphagia observed today without overt s/s of aspiration.
Patient also with signs concerning for reduced speed of processing auditory information and difficulty with word finding in [place]que and [place]. MRI of Brain pending.
Recommend:
1. IDDSI 6 soft/bite sized solids, thin liquids
2. Medications in puree
3. Strategies: full supervision and assistance, PO only when awake/alert,upright to 90 degrees, single sips/bites, slow rate, remain upright 30 minutes after PO intake
4. Oral care 3x daily
5. Dysphagia f/u to determine if further diet modification or advancement appropriate, need for instrumental swallow testing
6. Further assessment of language/cognition if appropriate pending results of MRI of Brain. Use 1-step commands, wait time, and offer binary choices to support communication at this time
[2025-07-15 12:07] VITALS: BP 111/69
[2025-07-15 12:53] LABS: Cortisol, Random 28.8 ug/dl
[2025-07-15 15:59] VITALS: BP 106/73
[2025-07-15] MEDS: NSS 500 IV (16:41)
[2025-07-15 19:21] VITALS: BP 112/69
[2025-07-15 20:27] LABS: Hepatitis C Antibody Reactive (Negative)
[2025-07-15] MEDS: CELEXA 30 MG PO (21:02)
[2025-07-15 23:19] VITALS: BP 108/75
[2025-07-16] VITALS (9 sets, daily range): BP systolic 100–120; BP diastolic 64–75; PULSE 112; BMI 25.9
[2025-07-16] MEDS: ZOSYN 50 IV ×4 (03:35→21:57)
[2025-07-16] MEDS: VANCOCIN 275 MG IV (05:00)
[2025-07-16] MEDS: D5LR 1000 IV (06:33)
--- NOTE | 2025-07-16 06:37 | PTCARENOTE ---
Addendum entered by Em Michelle RN 07/16/25 07:04:
Pt decided to void and voided 250 ml.
Original Note:
Pt AAOx2 to 1. forgetful and confused. Flat affect. NIH score of 1. Gen weakness. Pt was asked is she need to void and said 'n'o. Bladder scanned perform per protocol and had >575 ml. Unable to determine is fluid is from ascites or bladder. Pt
refused to void at this time.
[2025-07-16] MEDS: PROTONIX 40 MG PO (08:13)
[2025-07-16] MEDS: WELLBUTRIN REGULAR RELEASE 75 MG PO (08:13)
[2025-07-16] MEDS: DECADRON 1 MG PO (08:13)
[2025-07-16 09:24] LABS: Hematocrit 29.9 % (37.0-47.0); Hemoglobin 9.7 g/dL (12.0-16.0); Mean Corp Hgb Conc. 32.4 g/dL (33.0-37.0); Mean Corpuscular Volume 97.7 fL (81.0-99.0); Nucleated Red Blood Cells % 0 %; Platelet Count 97 10^3/uL (130-400); Red Cell Dist. Width 17.8 % (11.5-14.5)
[2025-07-16 09:39] LABS: ALT (SGPT) 53 U/L (0-35); AST (SGOT) 40 U/L (14-36); Albumin 2.7 g/dl (3.5-5.0); Alkaline Phosphatase 519 U/L (38-126); Blood Urea Nitrogen 23 mg/dl (7-17); Calcium 8.4 mg/dl (8.4-10.2); Carbon Dioxide 23 mmol/L (22-30); Chloride 103 mmol/L (98-107); Estimated Creatinine Clearance 74 ml/min; Glucose 156 mg/dl (70-99); Potassium 3.8 mmol/L (3.5-5.1); Sodium 131 mmol/L (135-145); Total Protein 5.1 g/dl (6.3-8.2); eGFR > 60.00
--- NOTE | 2025-07-16 10:01 | PHA.VAN.FU ---
Vancomycin Assessment / Plan
- Assessment
Renal Function: Stable
WBC's are: WNL
In the past 24 hrs, patient has been: Afebrile
Concomitant Antimicrobials: piperacillin-tazobactam
- Dosing Plan
Continue: vancomycin 1250 mg Q24H
- Monitoring Plan
No level(s) ordered at this time: consider levels in next few days
- Follow Up
Pharmacy will continue to follow.
Vancomycin Follow UP
- -
Patient Age: 70
Patient Sex: Female
Vancomycin Day #: 2
Indication: Other
Requesting Provider: Elizabeth
Height / Weight:
Height 5 ft 4 in
Actual Weight 68.402 kg
IBW in k.7
Adjusted BW in k.8
- Vital Signs / Lab Results
Temp Pulse Resp BP Pulse Ox
98.2 F 100 18 116/64 96
07/16/25 08:40 07/16/25 09:25 07/16/25 09:25 07/16/25 09:25 07/16/25 08:40
Lab Results - Hematology
07/14/25 07/15/25 07/16/25
15:18 07:14 08:20
WBC 11.4 H 9.6 7.8
Lab Results - Chemistry
07/14/25 07/15/25 07/16/25
15:18 07:14 08:20
BUN 31 H 30 H 23 H
Creatinine 0.7 0.7 0.6
Estimated Creat Clear 64 74
Albumin 3.2 L 2.7 L
Microbiology Results
07/14/25 19:52 Blood Culture - Preliminary
Blood/Venous No Growth in 24 hours- Final report to follow
07/14/25 19:52 Blood Culture - Preliminary
Blood/Venous No Growth in 24 hours- Final report to follow
07/14/25 18:05 Influenza Types A & B (BEATRIZ) - Final
Nasal Swab Negative for Influenza A & B, NAAT
Negative results must be combined with clinical observations
and patient history.
Nucleic Acid Amplification test (NAAT)performed on the
[employer] platform.
--- NOTE | 2025-07-16 10:41 | W.PN.HOSP.TC ---
Addendum entered and electronically signed by Tommy Johnson MD 07/16/25 12:12:
Family not known for HepC as per family
check HepC NAAT quantitative
Original Note:
Today's Communication/Plan
-
cont Abx
follow paracentesis labs
Minimal improvement of mentation
MRI brain pending
Assessment / Plan
Assessment / Plan
70yo F with PMHX of anxiety, gerd, hemorrhoids, HLD, ovarian CA s/p SOFI/BSO in November 2023 with omentectomy, currently on chemo, recurrent rectal bleed 2/2 concern for anastomotic CA recurrence, recurrent malignant ascites on regular paracentesis
developed worsening lethargy and confusion developed in short time span from AM to noon. Admitted with concern for UTI
A/P:
#Sepsis on admisson with Acute metabolic encephalopathy, leukocytosis, pyuria, concern for UTI
Watch for dysphagia, CERTIFIED MEDICAL AIDE assessment
VAnco/Zosyn
MRSA screen
BCx pending
Follow Ucx
MRI brain with contrast due to hx of metastatic disease
Check TSH and Cortisol
Check XR chest
#Abdominal distension 2/2 most likely malignant ascutes due to metastatic ovarian CA with mets to liver, pleura
#Gastrohepatic metastatic lymph node
#Splenomegaly
Cont to follow as outpatient with established specialists
Abd non-tender
Plan for paracentesis and fluid Cx - done on 07/16/25
Most recent visit to on 07/13/25 - Hospice recommended since will not tolerate or respond to more chemo with plan for permanent abd cath for home fluid drain
#Hx of rectal bleed 2/2 concern for anastomotic CA recurrence and hemorrhoids with chronic blood loss anemia
watch CBC
#Hyponatremia
recurrent
watch
#DJD
tylenol
#Thrombocytopenia
2/2 ca
#Anxiety D/O
#GERD
#tachycardia 2/2 recent chemo
cont home meds
DVT ppx SCDs
DNR/DNI
I have spent at least 51min reviewing chart, test results, communication with son and providing direct patient care
Anticipated Discharge: > 48 hours
Subjective/Interval History
-
Date of Service: July 16, 2025
Objective Data
-
Labs:
Laboratory Results
07/16/25
08:20
WBC 7.8
Hgb 9.7 L
Hct 29.9 L
Plt Count 97 L
Sodium 131 L
Potassium 3.8
Chloride 103
Carbon Dioxide 23
BUN 23 H
Creatinine 0.6
Glucose 156 H
Calcium 8.4
Total Bilirubin 0.9
AST 40 H
ALT 53 H
Alkaline Phosphatase 519 H
Vital Signs:
Vital Signs
Temp Pulse Resp BP Pulse Ox
98.2 F 100 18 116/64 96
07/16/25 08:40 07/16/25 09:25 07/16/25 09:25 07/16/25 09:25 07/16/25 08:40
I&O
07/15/25 07/16/25 07/17/25
06:59 06:59 06:59
Intake Total 240 / 240 1500 / 1500
Output Total 450 / 450 925 / 925
Balance -210 / -210 575 / 575
Review of Systems
-
History Source: Patient
All other systems: Reviewed and negative
Physical Exam
-
General: No Apparent Distress
HEENT: Normocephalic
GI: Soft, Nontender and Nondistended
Neuro: Awake, Alert, Oriented and AO x 3
Psych: Calm
[2025-07-16 13:03] LABS: Body Fluid Second Tech HB
--- NOTE | 2025-07-16 16:13 | CM ---
Patient seen at bedside with patient son and family also present with her brother. Patient son states that he was told by therapy that patient would benefit from SNF. CM reviewed PAC data and a list of local snf options. Patient PCP is "Gildardo"Hollis and she has been receiving her oncology care from another facility/system. Patient lives alone in a 3 story home with an apartment and a walker/cane. Patient son plan is for patient to go to snf. Patient was unable to identify family
members when she was in room. Patient son to review PAC data and will update CM with choices. CM will continue to follow for discharge planning needs.
Plan; SNF placement; watch for auth needs.
[2025-07-16] MEDS: CELEXA 30 MG PO (21:57)
[2025-07-17] VITALS (7 sets, daily range): BP systolic 102–122; BP diastolic 58–77; PULSE 117; O2SAT 98
[2025-07-17] MEDS: ZOSYN 50 IV ×2 (03:57→09:23)
[2025-07-17 07:56] LABS: Hematocrit 30.0 % (37.0-47.0); Hemoglobin 9.7 g/dL (12.0-16.0); Mean Corp Hgb Conc. 32.3 g/dL (33.0-37.0); Mean Corpuscular Volume 97.1 fL (81.0-99.0); Nucleated Red Blood Cells % 0 %; Platelet Count 114 10^3/uL (130-400); Red Cell Dist. Width 17.9 % (11.5-14.5)
[2025-07-17] MEDS: PROTONIX 40 MG PO (08:03)
[2025-07-17] MEDS: WELLBUTRIN REGULAR RELEASE 75 MG PO (08:03)
[2025-07-17] MEDS: DECADRON 1 MG PO (08:03)
[2025-07-17 08:18] LABS: ALT (SGPT) 52 U/L (0-35); AST (SGOT) 46 U/L (14-36); Albumin 2.7 g/dl (3.5-5.0); Alkaline Phosphatase 621 U/L (38-126); Blood Urea Nitrogen 20 mg/dl (7-17); Calcium 8.3 mg/dl (8.4-10.2); Carbon Dioxide 25 mmol/L (22-30); Chloride 102 mmol/L (98-107); Estimated Creatinine Clearance 74 ml/min; Glucose 129 mg/dl (70-99); Potassium 3.9 mmol/L (3.5-5.1); Sodium 131 mmol/L (135-145); Total Protein 4.9 g/dl (6.3-8.2); eGFR > 60.00
--- NOTE | 2025-07-17 10:10 | PTCARENOTE ---
verbal order to d/c NIH/ Neuro checks per Brain MRI results.
--- NOTE | 2025-07-17 10:20 | W.PN.HOSP.TC ---
Addendum entered and electronically signed by Tommy Johnson MD 07/17/25 10:27:
Stop PPI while on Cefuroxime to avoid interaction
Original Note:
Today's Communication/Plan
-
back to baseline
Cefuroxime
if continues to improve - dc to [facility] - informed CM
Assessment / Plan
Assessment / Plan
70yo F with PMHX of anxiety, gerd, hemorrhoids, HLD, ovarian CA s/p SOFI/BSO in November 2023 with omentectomy, currently on chemo, recurrent rectal bleed 2/2 concern for anastomotic CA recurrence, recurrent malignant ascites on regular paracentesis
developed worsening lethargy and confusion developed in short time span from AM to noon. Admitted with concern for UTI
A/P:
#Sepsis on admisson with Acute metabolic encephalopathy, leukocytosis, pyuria, concern for UTI
Watch for dysphagia, BEE BREEDER assessment
VAnco/Zosyn - switch to cefuroxime as pr Ucx sensitivity
MRSA screen neg
BCx NTD
Follow Ucx
MRI brain with contrast due to hx of metastatic disease
TSH and Cortisol WNL
XR chest without overt pneumonia
CT abd as of 06/19/25: Lobulated cyst in the central left kidney, and this has maximum dimension of 2.5 cm. Tiny cyst in the lateral mid to lower right kidney. No other abnormality of the kidneys. Urinary bladder is not distended with no gross
abnormality. No concern for nephrolithiasis complicating UTI
#Abdominal distension 2/2 most likely malignant ascites due to metastatic ovarian CA with mets to liver, pleura
#Gastrohepatic metastatic lymph node
#Splenomegaly
Cont to follow as outpatient with established specialists
Abd non-tender
paracentesis and fluid Cx - done on 07/16/25, remains neg for infection
Most recent visit to on 07/13/25 - Hospice recommended since will not tolerate or respond to more chemo with plan for permanent abd cath for home fluid drain - discussed with [facility] -will have to be done as outpatient
#Hx of rectal bleed 2/2 concern for anastomotic CA recurrence and hemorrhoids with chronic blood loss anemia
watch CBC
#Hyponatremia
recurrent
watch
#DJD
tylenol
#Thrombocytopenia
2/2 ca
#Anxiety D/O
#GERD
#tachycardia 2/2 recent chemo
cont home meds
DVT ppx SCDs
DNR/DNI
I have spent at least 51min reviewing chart, test results, communication with son and providing direct patient care
Anticipated Discharge: Within 24 hours
Subjective/Interval History
-
Date of Service: July 17, 2025
Objective Data
-
Labs:
Laboratory Results
07/17/25
07:10
WBC 7.0
Hgb 9.7 L
Hct 30.0 L
Plt Count 114 L
Sodium 131 L
Potassium 3.9
Chloride 102
Carbon Dioxide 25
BUN 20 H
Creatinine 0.6
Glucose 129 H
Calcium 8.3 L
Total Bilirubin 0.8
AST 46 H
ALT 52 H
Alkaline Phosphatase 621 H
Vital Signs:
Vital Signs
Temp Pulse Resp BP Pulse Ox
98.4 F 118 18 103/62 97
07/17/25 07:00 07/17/25 07:00 07/17/25 07:00 07/17/25 07:00 07/17/25 07:00
I&O
07/16/25 07/17/25 07/18/25
06:59 06:59 06:59
Intake Total 1500 / 1500 1080 / 1080 100 / 100
Output Total 925 / 925
Balance 575 / 575 1080 / 1080 100 / 100
Review of Systems
-
History Source: Patient
All other systems: Reviewed and negative
Physical Exam
-
General: No Apparent Distress
HEENT: Normocephalic
Cardiac: Regular Rhythm
Neuro: Awake, Alert, Oriented, AO x 3 and No Motor Deficits
Psych: Calm
[2025-07-17] MEDS: CEFTIN 500 MG PO ×2 (10:58→19:03)
--- NOTE | 2025-07-17 13:14 | CM ---
Planning for DC in the AM. Spoke with son about tentative DC tomorrow and SNF placement. 5-star medicare report provided for [facility]. Son he will provide choices tomorrow.
Plan: DC to SNF when be available
[2025-07-17] MEDS: CELEXA 30 MG PO (21:13)
[2025-07-18] VITALS (7 sets, daily range): BP systolic 102–128; BP diastolic 70–77; PULSE 127–130; O2SAT 95
[2025-07-18] MEDS: DECADRON 1 MG PO (08:04)
[2025-07-18] MEDS: WELLBUTRIN REGULAR RELEASE 75 MG PO (08:04)
[2025-07-18] MEDS: CEFTIN 500 MG PO ×2 (08:05→20:51)
--- NOTE | 2025-07-18 09:48 | W.PN.HOSP.TC ---
Today's Communication/Plan
-
dc
Assessment / Plan
Assessment / Plan
70yo F with PMHX of anxiety, gerd, hemorrhoids, HLD, ovarian CA s/p SOFI/BSO in November 2023 with omentectomy, currently on chemo, recurrent rectal bleed 2/2 concern for anastomotic CA recurrence, recurrent malignant ascites on regular paracentesis
developed worsening lethargy and confusion developed in short time span from AM to noon. Admitted with concern for UTI. Ucx grew E.coli sensitive with cephalosporins. Cefuroxime for 10 days BID, hold Omeprazole while on Cefuroxime. Mental state
returned to baseline. MRI brain w/u acute findings. Ambulatory capacity improved and PT recommended home PT upon D/C. Son is agreeable with the plan.
A/P:
#Sepsis on admission with Acute metabolic encephalopathy, leukocytosis, pyuria, concern for UTI
Watch for dysphagia, DIRECTOR OF MARKET RESEARCH assessment
VAnco/Zosyn - switch to cefuroxime as pr Ucx sensitivity
MRSA screen neg
BCx NTD
Follow Ucx
MRI brain with contrast due to hx of metastatic disease
TSH and Cortisol WNL
XR chest without overt pneumonia
CT abd as of 06/19/25: Lobulated cyst in the central left kidney, and this has maximum dimension of 2.5 cm. Tiny cyst in the lateral mid to lower right kidney. No other abnormality of the kidneys. Urinary bladder is not distended with no gross
abnormality. No concern for nephrolithiasis complicating UTI
#Abdominal distension 2/2 most likely malignant ascites due to metastatic ovarian CA with mets to liver, pleura
#Gastrohepatic metastatic lymph node
#Splenomegaly
Cont to follow as outpatient with established specialists
Abd non-tender
paracentesis and fluid Cx - done on 07/16/25, remains neg for infection
Most recent visit to on 07/13/25 - Hospice recommended since will not tolerate or respond to more chemo with plan for permanent abd cath for home fluid drain - discussed with IRAD -will have to be done as outpatient
#Hx of rectal bleed 2/2 concern for anastomotic CA recurrence and hemorrhoids with chronic blood loss anemia
watch CBC
#Hyponatremia
recurrent
watch
#DJD
tylenol
#Thrombocytopenia
2/2 ca
#Anxiety D/O
#GERD
#tachycardia 2/2 recent chemo
cont home meds
DVT ppx SCDs
DNR/DNI
I have spent at least 51min reviewing chart, test results, communication with son and providing direct patient care
Anticipated Discharge: Today
Subjective/Interval History
-
Date of Service: July 18, 2025
Objective Data
-
Vital Signs:
Vital Signs
Temp Pulse Resp BP Pulse Ox
98.5 F 135 16 113/77 96
07/18/25 07:06 07/18/25 07:06 07/18/25 07:06 07/18/25 07:06 07/18/25 07:06
I&O
07/17/25 07/18/25 07/19/25
06:59 06:59 06:59
Intake Total 1080 / 1080 2190 / 2190
Balance 1080 / 1080 2190 / 2190
Review of Systems
-
History Source: Patient
All other systems: Reviewed and negative
Physical Exam
-
General: No Apparent Distress
HEENT: Normocephalic
Respiratory: Clear to Auscultation
Cardiac: Regular Rhythm
Psych: Calm
--- NOTE | 2025-07-18 12:54 | W.DCSUMMARY ---
Addendum entered and electronically signed by Gerard Reyez MD 07/19/25 11:35:
Update - date of discharge 07/19/25
Original Note:
Discharge Summary
Discharge Data
Date of Admission: 07/14/25
Date of Discharge: 07/18/25
-
Pending Results: No
Hospital Course
70yo F with PMHX of anxiety, gerd, hemorrhoids, HLD, ovarian CA s/p SOFI/BSO in November 2023 with omentectomy, currently on chemo, recurrent rectal bleed 2/2 concern for anastomotic CA recurrence, recurrent malignant ascites on regular paracentesis
developed worsening lethargy and confusion developed in short time span from AM to noon. Admitted with concern for UTI. Ucx grew E.coli sensitive with cephalosporins. Cefuroxime for 10 days BID, hold Omeprasole while on Cefuroxime. Mental state
returned to baseline. MRI brain w/u acute findings. Ambulatory capacity improving
I have spent at least 51min reviewing chart, test results, communication with son and providing direct patient care
PAtient was managed for:
#Sepsis on admission with Acute metabolic encephalopathy, leukocytosis, pyuria, concern for UTI
#Abdominal distension 2/2 most likely malignant ascites due to metastatic ovarian CA with mets to liver, pleura
#Gastrohepatic metastatic lymph node
#Splenomegaly
#Hx of rectal bleed 2/2 concern for anastomotic CA recurrence and hemorrhoids with chronic blood loss anemia
#Hyponatremia
#DJD
#Thrombocytopenia
#Anxiety D/O
#GERD
#tachycardia, sinus, chronic
Discharge Plan
-
Patient Disposition: Home with Home Care
Discharge Diagnosis/Procedures: UTI
Diet: Low Cholesterol
Activity: As tolerated
Other Services: PT
Referrals:
UNKNOWN - PT DOES,NOT KNOW [Family Provider]
Prescriptions:
New
cefuroxime axetil 500 mg Tablet
500 mg PO BID Qty: 20 0RF
Continued
simvastatin 20 mg Tablet
20 mg PO QPM
bupropion HCl 75 mg Tablet
75 mg PO DAILY
citalopram 20 mg Tablet
20 mg PO HS
Rx Instructions:
TAKE WITH 10MG TAB FOR TOTAL OF 30MG - MKO
ondansetron HCl 8 mg Tablet
8 mg PO Q8HPRN PRN (Reason: NAUSEA)
citalopram 10 mg Tablet
10 mg PO HS
Rx Instructions:
TAKE WITH 20MG TAB FOR TOTAL OF 30MG - MKO
amlodipine 5 mg Tablet
5 mg PO DAILY
acetaminophen 500 mg Tablet
500 mg PO Q6H PRN (Reason: mild pain)
dexamethasone 1 mg Tablet
1 mg PO BID
losartan 25 mg Tablet
25 mg PO DAILY
mirabegron [Myrbetriq] 25 mg Tablet Extended Release 24 Hr
25 mg PO DAILY
Held
omeprazole 20 mg Capsule,Delayed Release(Dr/Ec)
20 mg PO DAILY
Hold Instructions: Until completed course of Cefuroxime
Discontinued
ibuprofen 200 mg Tablet
400 mg PO Q4H PRN (Reason: mild pain)
Discharge Orders:
Discharge Patient (As Directed); Ordered 07/18/25
Ordered By: Tommy Johnson
Discharge Date and Time
Print Language: TURKMEN
--- NOTE | 2025-07-18 13:47 | CM ---
Addendum entered by Marina Perea 07/18/25 15:51:
No accepting HH agency. Will have CM follow-up in the morning
Original Note:
Pt had new PT eval today and deemed her safe to ambulate with walker. Attempting to connect pt with a HH agency, palest[place] speaking professionals, today so she can be discharged. CM has been in communication with the son, Nawaf. Nawaf provided a
referral to [facility] . This referral was added to the referral for [facility], also a [place] speaking agency.
Pt is discharge today. Waiting for accepting agency
Plan: [place] home with home health
[2025-07-18] MEDS: DILAUDID 0.25 MG IV (17:23)
[2025-07-18] MEDS: ROXICODONE 5 MG PO (20:50)
[2025-07-18] MEDS: CELEXA 30 MG PO (22:30)
[2025-07-19 03:18] VITALS: BP 105/72
[2025-07-19 07:59] VITALS: BP 118/76
[2025-07-19] MEDS: CEFTIN 500 MG PO (08:30)
[2025-07-19] MEDS: WELLBUTRIN REGULAR RELEASE 75 MG PO (08:30)
[2025-07-19] MEDS: DECADRON 1 MG PO (08:30)
--- NOTE | 2025-07-19 09:46 | W.PN.HOSP.TC ---
Today's Communication/Plan
-
dc home
OP f/u
po abx
Assessment / Plan
Assessment / Plan
70yo F with PMHX of anxiety, gerd, hemorrhoids, HLD, ovarian CA s/p SOFI/BSO in November 2023 with omentectomy, currently on chemo, recurrent rectal bleed 2/2 concern for anastomotic CA recurrence, recurrent malignant ascites on regular paracentesis
developed worsening lethargy and confusion developed in short time span from AM to noon. Admitted with concern for UTI. Ucx grew E.coli sensitive with cephalosporins. Cefuroxime for 10 days BID, hold Omeprazole while on Cefuroxime. Mental state
returned to baseline. MRI brain w/u acute findings. Ambulatory capacity improved and PT recommended home PT upon D/C. Son is agreeable with the plan.
A/P:
#Sepsis on admission with Acute metabolic encephalopathy, leukocytosis, pyuria, concern for UTI
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
VAnco/Zosyn - switch to cefuroxime as pr Ucx sensitivity
MRSA screen neg
BCx NTD
Follow Ucx
MRI brain with contrast due to hx of metastatic disease
TSH and Cortisol WNL
XR chest without overt pneumonia
CT abd as of 06/19/25: Lobulated cyst in the central left kidney, and this has maximum dimension of 2.5 cm. Tiny cyst in the lateral mid to lower right kidney. No other abnormality of the kidneys. Urinary bladder is not distended with no gross
abnormality. No concern for nephrolithiasis complicating UTI
#Abdominal distension 2/2 most likely malignant ascites due to metastatic ovarian CA with mets to liver, pleura
#Gastrohepatic metastatic lymph node
#Splenomegaly
Cont to follow as outpatient with established specialists
Abd non-tender
paracentesis and fluid Cx - done on 07/16/25, remains neg for infection
Most recent visit to on 07/13/25 - Hospice recommended since will not tolerate or respond to more chemo with plan for permanent abd cath for home fluid drain - discussed with IRAD -will have to be done as outpatient
#Hx of rectal bleed 2/2 concern for anastomotic CA recurrence and hemorrhoids with chronic blood loss anemia
watch CBC
#Hyponatremia
recurrent
watch
#DJD
tylenol
#Thrombocytopenia
2/2 ca
#Anxiety D/O
#GERD
#tachycardia 2/2 recent chemo
cont home meds
DVT ppx SCDs
DNR/DNI
Anticipated Discharge: Today
Subjective/Interval History
-
Date of Service: July 19, 2025
wants to go home
Objective Data
-
Vital Signs:
Vital Signs
Temp Pulse Resp BP Pulse Ox
98.0 F 119 16 118/76 96
07/19/25 07:59 07/19/25 07:59 07/19/25 07:59 07/19/25 07:59 07/19/25 07:59
I&O
07/18/25 07/19/25 07/20/25
06:59 06:59 06:59
Intake Total 0 / 0 750 / 750
Balance 2190 / 2190 750 / 750
Physical Exam
-
General: No Apparent Distress
HEENT: Normocephalic
Respiratory: Clear to Auscultation
Cardiac: Regular Rhythm
GI: Nondistended
Neuro: Awake and Nonfocal/Grossly Intact
Psych: Calm
--- NOTE | 2025-07-19 09:52 | CM ---
CM reviewed pt with attending- remains ready for dc
Pt declined by [facility] due to staffing
VM left for [facility]
Pt accepted for service by [facility]
Dyllan with son/Nawaf who is in agreement with plan
IMM verbally reviewed over phone- copy left with dc packet
[facility] order on chart
Discharge Disposition- home with [facility] via family transport (pickup 1200)
Fax- [phone]
[2025-07-19 11:35] VITALS: BP 119/77
[2025-07-20 14:04] LABS: HCV Quant by NAAT IU/mL Not Detected; HCV Quant by NAAT Interp Not Detected (Not Detected); HCV Quant by NAAT Log IU/mL Not Detected log IU/mL
== END 2025-07-19 11:46 | disposition home health service (06) | DRG 871 ==
LOC: 2 NORTH 20:43
PROVIDERS: Internal Medicine; Psychiatry & Neurology Neurology; Radiology Vascular & Interventional Radiology; ADMITTING PHYSICIAN Internal Medicine; ATTENDING PHYSICIAN Hospitalist; EMERGENCY PHYSICIAN Emergency Medicine
PROC: XX20X89 Monitoring of Brain Electrical Activity, Computer-aided Detection and Notification, New Technology Group 9 (ICD-10-PCS; 2025-07-14)
PROC: 0W9G3ZX Drainage of Peritoneal Cavity, Percutaneous Approach, Diagnostic (ICD-10-PCS; 2025-07-16)
DX: A41.9 Sepsis, unspecified organism (principal); G92.8 Other toxic encephalopathy; K92.2 Gastrointestinal hemorrhage, unspecified; C56.9 Malignant neoplasm of unspecified ovary; N39.0 Urinary tract infection, site not specified; C78.7 Secondary malignant neoplasm of liver and intrahepatic bile duct; R18.0 Malignant ascites; E87.1 Hypo-osmolality and hyponatremia; R65.20 Severe sepsis without septic shock; E78.00 Pure hypercholesterolemia, unspecified; K21.9 Gastro-esophageal reflux disease without esophagitis; K64.9 Unspecified hemorrhoids; I10 Essential (primary) hypertension; F41.9 Anxiety disorder, unspecified; R16.1 Splenomegaly, not elsewhere classified; D50.0 Iron deficiency anemia secondary to blood loss (chronic); M19.90 Unspecified osteoarthritis, unspecified site; D69.6 Thrombocytopenia, unspecified; B96.20 Unspecified Escherichia coli [E. coli] as the cause of diseases classified elsewhere; Z60.3 Acculturation difficulty; Z66 Do not resuscitate; Z60.2 Problems related to living alone; Z85.43 Personal history of malignant neoplasm of ovary; Z90.710 Acquired absence of both cervix and uterus; Z90.722 Acquired absence of ovaries, bilateral; Z92.21 Personal history of antineoplastic chemotherapy; Z90.49 Acquired absence of other specified parts of digestive tract; Z79.899 Other long term (current) drug therapy; Z11.52 Encounter for screening for COVID-19
CPT/HCPCS: 36415; 49083; 70450; 70553; 71045; 80048; 80053; 81003; 81015; 82042; 82140; 82533; 83735; 84157; 84443; 85025; 85027; 85730; 86304; 86803; 86850; 86900; 86901; 87015; 87040; 87070; 87077; 87086; 87186; 87205; 87502; 87522; 87811; 89051; 92523; 92526; 92610; 93005; 95813; 96374; 97116; 97163; 97166; 99285; A9575

== ENCOUNTER → 2025-07-21 12:24 | Outpatient (REF) | payer MEDICARE, OTHER, SELFPAY ==
[2025-07-21 12:39] VITALS: BP 111/75; BP_SYST 121
[2025-07-21 13:17] VITALS: BP 105/70; BP_SYST 109
[2025-07-21 13:25] VITALS: BP 105/70
[2025-07-21 16:21] LABS: Body Fluid Second Tech DW
== END ==
LOC: RADI 12:24
PROVIDERS: ATTENDING PHYSICIAN Internal Medicine Hematology & Oncology; FAMILY PHYSICIAN Internal Medicine
DX: R18.8 Other ascites (principal)
CPT/HCPCS: 49083; 89051